=== PATIENT | male | born 1940 | race Caucasian/White ===

== ENCOUNTER 2019-01-04 17:05 | Inpatient (IN) | payer MEDICARE, BC ==
[2019-01-04] MEDS ORDERED: Ondansetron 4 MG/2 ML SDV IVPUSH ONE (17:32)
[2019-01-04] MEDS ORDERED: Sodium Chloride 0.9% 1,000 ML IV ONE (17:32)
--- NOTE | 2019-01-04 18:05 | CR ---
[id number] RAD/RAD Foot Right 3V Min EXAM: RAD Foot Right 3V Min CLINICAL DATA: POSSIBLE FOREIGN BODY COMPARISON: NO PREVIOUS SIMILAR EXAM IS AVAILABLE. FINDINGS: A metallic density projects against the distal tibia and fibula. This may be surgical. No fracture or dislocation is seen. There is no radiopaque foreign body in the soft tissues. There is no air in the soft tissues. There is no cortical thickening or periosteal reaction either. IMPRESSION: NO AIR IN SOFT TISSUES. NO OBVIOUS RADIOPAQUE FOREIGN BODY. NO PLAIN FILM EVIDENCE OF VASCULITIS. CONSIDER CAT SCAN IF NEEDED. Jon James MD 01/04/19 [id number] Thank you for allowing us to participate in the care of your patient.
--- NOTE | 2019-01-04 18:07 | EDM.PDOC ---
ED HPI GENERAL MEDICAL PROBLEM - General Chief Complaint: General Stated Complaint: NAUSEA, VOMITING, ? MED REACTION Time Seen by Provider: 01/04/19 18:01 Source of Information: Reports: Patient History Limitations: Reports: No Limitations - History of Present Illness INITIAL COMMENTS - FREE TEXT/NARRATIVE: Patient is a 78-year-old gentleman who presents to the emergency department this evening with a complaint of nausea, vomiting, and right foot pain. Patient states on December 25. He accidentally stepped on a toothpick. He was seen at the [facility] on December 27 and given prescription for doxycycline. Symptoms have progressively worsened. Patient states now he cannot put any weight on the right foot. Patient states that whenever he takes the doxycycline it causes nausea and vomiting. Therefore, has been taking it infrequently. Patient is also an insulin-dependent diabetic and infrequently checks glucose. Unsure if patient is compliant with medication. Patient denies chest pain, shortness of breath, fever, abdominal pain, calf pain, or headache. Onset: Gradual Onset Date: 12/25/18 Duration: Week(s): Location: Reports: Lower Extremity, Right Quality: Reports: Ache Severity: Mild Improves with: Reports: None Worsens with: Reports: Movement Context: Reports: Trauma Associated Symptoms: Reports: Nausea/Vomiting Treatments ROOF SHINGLER: Reports: Other (see below) (Doxycycline) Right Feet Pain Score (Numeric/FACES): 4 - Related Data Allergies Allergy/AdvReac Type Severity Reaction Status Date / Time No Known Drug Allergies Allergy Cannot Verified 01/04/19 17:24 Remember Home Meds: Home Meds Aspirin [Ecotrin] 325 mg PO DAILY 02/16/15 [History] Levothyroxine 75 mcg PO ACBREAKFAST 02/16/15 [History] Tamsulosin [Flomax] 0.4 mg PO DAILY 02/16/15 [History] atorvaSTATin [Lipitor] 40 mg PO BEDTIME 02/16/15 [History] Calcitriol [Rocaltrol] 0.25 mcg PO DAILY 06/20/16 [History] Acetaminophen 500 mg PO DAILY 02/08/17 [History] Insulin Glarg,Human.Rec.Analog [Lantus Solostar] 23 unit SUBCUT DAILY 02/08/17 [ History] Cholecalciferol (Vitamin D3) [Vitamin D3] 1,000 units PO DAILY 02/09/17 [History ] Doxycycline Hyclate 100 mg PO BID 01/04/19 [History] Lisinopril 2.5 mg PO DAILY 01/04/19 [History] amLODIPine Besylate [Amlodipine Besylate] 5 mg PO DAILY 01/04/19 [History] Past Medical History Cardiovascular History: Reports: High Cholesterol, Hypertension Genitourinary History: Reports: BPH, Other (See Below), Renal Disease, Urinary Incontinence Other Genitourinary History: CKD stage 4 Musculoskeletal History: Reports: Arthritis Endocrine/Metabolic History: Reports: Diabetes, Type II Social & Family History - Caffeine Use Caffeine Use: Reports: Coffee ED ROS GENERAL - Review of Systems Review Of Systems: ROS reveals no pertinent complaints other than HPI. Constitutional: Reports: Weakness HEENT: Reports: No Symptoms Respiratory: Reports: No Symptoms Cardiovascular: Reports: No Symptoms Endocrine: Reports: No Symptoms GI/Abdominal: Reports: No Symptoms : Reports: No Symptoms Musculoskeletal: Reports: Foot Pain (Right plantar surface) Skin: Reports: Erythema Neurological: Reports: No Symptoms Psychiatric: Reports: No Symptoms Hematologic/Lymphatic: Reports: No Symptoms Immunologic: Reports: No Symptoms ED EXAM, GENERAL - Physical Exam Exam: See Below Exam Limited By: No Limitations General Appearance: Alert, WD/WN, No Apparent Distress Throat/Mouth: Normal Inspection, Normal Oropharynx, No Airway Compromise Head: Atraumatic, Normocephalic Neck: Normal Inspection Respiratory/Chest: No Respiratory Distress, Lungs Clear, Normal Breath Sounds, No Accessory Muscle Use, Chest Non-Tender Cardiovascular: Normal Peripheral Pulses, Regular Rate, Rhythm, No Murmur GI/Abdominal: Normal Bowel Sounds, Soft, Non-Tender Back Exam: Normal Inspection. No: CVA Tenderness (L), CVA Tenderness (R) Extremities: No Pedal Edema, Redness (Right foot), Other (Extensive toenail growth). No: Normal Inspection Neurological: Alert, Oriented, Normal Cognition Psychiatric: Normal Affect, Normal Mood Skin Exam: Warm, Dry, Normal Color, No Rash, Erythema (Erythema of Right foot Plantar surface and distal dorsal aspect with no toe involvement) Lymphatic: No Adenopathy Course - Vital Signs Last Recorded V/S: Last Vital Signs Temp 98.6 F 01/04/19 17:20 Pulse 97 01/04/19 17:20 Resp 16 01/04/19 17:20 BP 86/61 L 01/04/19 17:20 Pulse Ox 95 03/08/19 17:20 - Orders/Labs/Meds Orders: Active Orders 24 hr Category Date Time Status Patient Status [ADT] Routine ADT 01/04/19 18:30 Ordered Oxygen Therapy [RC] PRN Care 01/04/19 18:30 Ordered Peripheral IV Care [RC] . DIRECTED Care 01/04/19 17:33 Active VTE/DVT Education [RC] PER UNIT ROUTINE Care 01/04/19 18:30 Ordered Vital Signs [RC] Q4H Care 01/04/19 18:30 Ordered CULTURE BLOOD [BC] Stat Lab 01/04/19 18:15 Ordered CULTURE BLOOD [BC] Stat Lab 01/04/19 18:15 Ordered CULTURE BLOOD [BC] Stat Lab 01/04/19 18:15 Ordered LACTIC ACID [CHEM] Stat Lab 01/04/19 18:10 Ordered Piperacillin/Tazobactam/Dext [Zosyn in Dextrose Iso- Med 01/04/19 18:15 Ordered Osmotic 3.375 GM] 3.375 gm Premix Bag 1 bag IV ONETIME Sodium Chloride 0.9% [Saline Flush] Med 01/04/19 17:32 Active 10 ml FLUSH Q8HR PRN Blood Culture x2 Reflex Set [OM.PC] Stat Oth 01/04/19 18:15 Ordered Peripheral IV Insertion Adult [OM.PC] Routine Oth 01/04/19 17:32 Ordered Resuscitation Status Routine Resus Stat 01/04/19 18:30 Ordered Medication Orders Piperacillin/Tazobactam/ (Dextrose 3.375 gm/ Premix) 50 mls @ 100 mls/hr IV ONETIME ONE Stop: 01/04/19 18:44 Sodium Chloride (Saline Flush) 10 ml FLUSH Q8HR PRN PRN Reason: keep vein open Labs: Laboratory Tests 01/04/19 01/04/19 Range/Units 17:40 17:40 WBC 18.38 H (5.00-10.00) 10^3/uL RBC 4.58 (4.50-6.00) 10^6/uL Hgb 13.4 (13.0-17.0) g/dL Hct 39.7 L (40.0-52.0) % MCV 86.7 (82.0-92.0) fL MCH 29.3 (27.0-31.0) pg MCHC 33.8 (32.0-36.0) g/dL RDW 12.7 (11.5-14.5) % Plt Count 416 H (150-400) 10^3/uL MPV 10.1 (7.4-10.4) fL Immature Gran % (Auto) 0.7 (0.0-5.0) % Neut % (Auto) 85.6 H (50.0-70.0) % Lymph % (Auto) 7.8 L (20.0-40.0) % Hendricks % (Auto) 5.6 (2.0-8.0) % Eos % (Auto) 0.2 L (1.0-3.0) % Baso % (Auto) 0.1 (0.0-1.0) % Immature Gran # (Auto) 0.12 (0.00-0.50) 10^3/uL Neut # (Auto) 15.76 H (2.50-7.00) 10^3/uL Lymph # (Auto) 1.43 (1.00-4.00) 10^3/uL Hendricks # (Auto) 1.03 H (0.10-0.80) 10^3/uL Eos # (Auto) 0.03 L (0.10-0.30) 10^3/uL Baso # (Auto) 0.01 (0.00-0.10) 10^3/uL Sodium 129 L D (136-145) mmol/L Potassium 4.9 (3.3-5.3) mmol/L Chloride 93 L D (98-115) mmol/L Carbon Dioxide 26.6 (21.0-32.0) mmol/L Anion Gap 14.3 (5-15) mmol/L BUN 64 H* (6-25) mg/dL Creatinine 2.34 H (0.51-1.17) mg/dL Est Cr Clr Drug Dosing 23.10 mL/min Estimated GFR (MDRD) 27 mL/min Glucose 496 H (75 - 99) mg/dL Calcium 10.8 H D (8.7-10.3) mg/dL Total Bilirubin 0.5 (0.2-1.0) mg/dL AST 10 L (15-37) U/L ALT 10 L (12-78) U/L Alkaline Phosphatase 85 (46-116) IU/L Total Protein 6.4 (6.4-8.2) g/dL Albumin 2.48 L (3.00-4.80) g/dL Meds: Medications Generic Name Dose Route Start Last Admin Trade Name Freq PRN Reason Stop Dose Admin Piperacillin/Tazobactam/ 50 mls @ 100 mls/hr 01/04/19 18:15 Dextrose 3.375 gm/ Premix IV 01/04/19 18:44 ONETIME ONE Sodium Chloride 10 ml 01/04/19 17:32 Saline Flush FLUSH Q8HR PRN keep vein open Discontinued Medications Generic Name Dose Route Start Last Admin Trade Name Freq PRN Reason Stop Dose Admin Sodium Chloride 1,000 mls @ 999 mls/hr 01/04/19 17:32 01/04/19 17:45 Normal Saline IV 01/04/19 18:32 999 mls/hr .BOLUS ONE Administration Ondansetron HCl 4 mg 01/04/19 17:32 01/04/19 18:00 Zofran IVPUSH 01/04/19 17:33 4 mg ONETIME ONE Administration - Radiology Interpretation Free Text/Narrative:: Right foot plain film shows no air, radiopaque foreign body, or bony involvement. - Re-Assessments/Exams Free Text/Narrative Re-Assessment/Exam: 01/04/19 18:25 Patient afebrile, appears nontoxic, vital signs stable. Patient started on Zosyn 3.375 IV. Discussed case with Mariela rosas from [facility]. Patient will be admitted and followed by her. Free Text/Narrative Re-Assessment/Exam: 01/04/19 18:33 Erythema border of right foot, both plantar and dorsal aspect marked with a black marker Departure - Departure Time of Disposition: 18:27 Disposition: Admitted As Inpatient 65 Condition: Fair Clinical Impression: Cellulitis Qualifiers: Site of cellulitis: extremity Site of cellulitis of extremity: lower extremity Laterality: right Qualified Code(s): L03.115 - Cellulitis of right lower limb Uncontrolled diabetes mellitus Qualifiers: Diabetes mellitus type: type 2 Glycemic state: with hyperglycemia Qualified Code(s): E11.65 - Type 2 diabetes mellitus with hyperglycemia Chronic renal failure Qualifiers: Chronic kidney disease stage: unspecified stage Qualified Code(s): N18.9 - Chronic kidney disease, unspecified Leukocytosis Qualifiers: Leukocytosis type: unspecified Qualified Code(s): D72.829 - Elevated white blood cell count, unspecified - Discharge Information Referrals: Julianna Ybarra PA-C [Primary Care Provider] - Forms: ED Department Discharge - My Orders Last 24 Hours: My Active Orders 01/04/19 17:32 Sodium Chloride 0.9% [Saline Flush] 10 ml FLUSH Q8HR PRN Peripheral IV Insertion Adult [OM.PC] Routine 01/04/19 17:33 Peripheral IV Care [RC] . DIRECTED 01/04/19 18:10 LACTIC ACID [CHEM] Stat 01/04/19 18:15 CULTURE BLOOD [BC] Stat CULTURE BLOOD [BC] Stat CULTURE BLOOD [BC] Stat Piperacillin/Tazobactam/Dext [Zosyn in Dextrose Iso-Osmotic 3.375 GM] 3.375 gm Premix Bag 1 bag IV ONETIME Blood Culture x2 Reflex Set [OM.PC] Stat 01/04/19 18:30 Patient Status [ADT] Routine Oxygen Therapy [RC] PRN VTE/DVT Education [RC] PER UNIT ROUTINE Vital Signs [RC] Q4H Resuscitation Status Routine - Assessment/Plan Last 24 Hours: My Active Orders 01/04/19 17:32 Sodium Chloride 0.9% [Saline Flush] 10 ml FLUSH Q8HR PRN Peripheral IV Insertion Adult [OM.PC] Routine 01/04/19 17:33 Peripheral IV Care [RC] . DIRECTED 01/04/19 18:10 LACTIC ACID [CHEM] Stat 01/04/19 18:15 CULTURE BLOOD [BC] Stat CULTURE BLOOD [BC] Stat CULTURE BLOOD [BC] Stat Piperacillin/Tazobactam/Dext [Zosyn in Dextrose Iso-Osmotic 3.375 GM] 3.375 gm Premix Bag 1 bag IV ONETIME Blood Culture x2 Reflex Set [OM.PC] Stat 01/04/19 18:30 Patient Status [ADT] Routine Oxygen Therapy [RC] PRN VTE/DVT Education [RC] PER UNIT ROUTINE Vital Signs [RC] Q4H Resuscitation Status Routine Assessment:: Right foot cellulitis, chronic renal failure Plan: Admit inpatient to [place]
[2019-01-04 18:09] LABS: ANION GAP 14.3 mmol/L (5-15)
[2019-01-04] MEDS ORDERED: Piperacillin/Tazobactam/Dext 3.375 GM in Premix Bag 1 BAG IV ONE (18:15)
[2019-01-04] MEDS ORDERED: Insulin Aspart 100 Units/ML 3 ML Pen SUBCUT ONE (20:20)
[2019-01-04] MEDS: Insulin Aspart 100 Units/ML 3 ML Pen SUBCUT SCH (21:07)
[2019-01-04] MEDS: Acetaminophen 500 MG Tab PO SCH (22:35)
[2019-01-05] MEDS: Levothyroxine 75 MCG Tab PO SCH (07:08)
[2019-01-05 07:52] LABS: ANION GAP 11.8 mmol/L (5-15)
[2019-01-05] MEDS: Insulin Detemir 100 Units/ML 3 ML Pen SUBCUT SCH (08:19)
[2019-01-05] MEDS: Aspirin 325 MG Tab.EC PO SCH (08:20)
[2019-01-05] MEDS: Insulin Aspart 100 Units/ML 3 ML Pen SUBCUT SCH ×4 (08:20→21:53)
[2019-01-05] MEDS: Lisinopril 5 MG Tab PO SCH (08:20)
[2019-01-05] MEDS: Cholecalciferol (Vitamin D3) 1,000 Unit Tab PO SCH (08:21)
[2019-01-05] MEDS: Acetaminophen 500 MG Tab PO SCH (08:21)
[2019-01-05] MEDS: Tamsulosin 0.4 MG Cap.ER PO SCH (08:21)
[2019-01-05] MEDS: Calcitriol 0.25 MCG Cap PO SCH (08:21)
[2019-01-05] MEDS: amLODIPine 5 MG Tab PO SCH (08:21)
[2019-01-05] MEDS: Piperacillin/Tazobactam/Dext 2.25 GM in Premix Bag 1 BAG IV SCH ×3 (09:59→20:35)
[2019-01-05] MEDS: Sodium Chloride 0.9% 250 ML IV SCH (10:00)
--- NOTE | 2019-01-05 14:24 | PN ---
01/05/2019 PATIENT NAME: THOMAS HADLEY V This is a 78-year-old elderly male who was admitted to the hospital last evening due to cellulitis of the right foot after obtaining a puncture wound from a toothpick on 12/25/2018. He was unable to tolerate doxycycline orally and stopped the medications. Due to cellulitis with an elevated WBC of 18,000, and IDDM, the patient was admitted to the hospital. He is afebrile, but was not eating and drinking due to the inability to get up for food and liquids for himself. The patient states that he is feeling much better today. He has had two doses of Zosyn and one dose of vancomycin and these have been titrated due to CKD by pharmacy. The patient remains afebrile. On examination of the right foot, the area of erythema as marked by the ER provider, has lessened. The patient continues to have pain. On examination today, the right foot as stated above and also has a linear 1 cm x 5 cm blister without fluid. Puncture wound is notable. No drainage. IMPRESSION: 1. Cellulitis, right foot, slight improvement. 2. Diabetes mellitus, insulin control. Sliding scale has been continued due to elevated blood sugars. 3. 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 4. Hypotension also improving. PLAN: Continue on the same medications as previously ordered. We will follow up as needed. We will reassess for the need of CT if no improvement. /[id number]/MODL
[2019-01-05] MEDS: Acetaminophen 325 MG Tab PO PRN (17:57)
--- NOTE | 2019-01-05 19:38 | HP ---
REASON FOR ADMISSION: This is a 78-year-old male who was seen in the emergency room and admitted to the hospital due to cellulitis of the right foot. HISTORY OF PRESENT ILLNESS: This elderly 78-year-old male apparently stepped on a toothpick on 12/25/2018, and was able to remove it, and on 12/27, was seen apparently in the clinic and started on doxycycline 100 mg b.i.d. Due to nausea and stomach upset, he did not continue on the doxycycline. Due to the worsening of the weather and also it had been noted by his nephew that when he checked on him in the morning and in the evening, he had not moved out of his chair. He was not eating and drinking well due to the pain and discomfort in the right foot. He presented to the emergency room and was found to have cellulitis of the right foot. X-ray was obtained and no air in soft tissues, no signs of vasculitis, and no foreign body was noted. Consider CT if needed. His blood pressure was low at 86/61. He was afebrile at 98.6. His white count was elevated to 18.3 and lactic acid was at 2.0 which is the top of normal. In the ER, he did have blood cultures, noted that his creatinine is elevated at 2.34 but has a history of CKD, stage 3. He also has a history of diabetes mellitus, on insulin, fair control. The patient was admitted to the hospital through the emergency room. PAST MEDICAL HISTORY: IDDM, fair control; CKD, stage 3 to 4; BPH; hypothyroidism; hyperlipidemia; hypertension. PAST SURGICAL HISTORY: Discussed with the patient and does not remember ever having any type of surgery. REVIEW OF SYSTEMS: HEENT: Denies any nasal congestion, sore throat, or headache. SKIN: Redness, pain, open puncture wound of the right foot, and pain on ambulation. CARDIAC: Denies any chest pain, palpitations. LUNGS: Denies any shortness of breath or cough. Denies any chest discomfort on inspiration. ABDOMEN: Denies any nausea, vomiting, diarrhea, or constipation. States that when he took the doxycycline, he became very nauseated and has not had an appetite, but has no longer continued with the doxycycline. Bowels are regular. EXTREMITIES: History of arthritis. Right foot pain with redness and swelling. NEUROLOGIC: The patient has had problems with possible learning disability, but has been alert and responds very well living alone. SOCIAL HISTORY: The patient lives alone. Nonsmoker. No alcohol intake. Retired [employer]. Family members, brothers or nephews and nieces have checked on him frequently. PHYSICAL EXAMINATION: GENERAL: Pleasant elderly male, in no acute distress. He is afebrile. VITAL SIGNS: Temperature 98.6, pulse 72, respirations 18, blood pressure is low at 86/61. HEENT: Head: Normocephalic. NECK: Range of motion was supple. No cervical lymphadenopathy. CARDIAC: Heart tones are regular without murmur or extra heart sounds. LUNGS: Clear. There are no rales, rhonchi, or wheezes. ABDOMEN: Soft. No abdominal tenderness or organomegaly. EXTREMITIES: Noted arthritic changes. Good range of motion of both upper and lower extremities. Right foot, at the great toe, across the distal metatarsals, there is erythema present, and on the bottom, there is an elongated blister approximately 4 to 5 cm in length without fluid. Markings from ER are evaluated and the erythema is left than marked. NEUROLOGIC: The patient is alert and well orientated x3. IMPRESSION: 1. Cellulitis, right foot, due to puncture wound. 2. Chronic kidney disease, stage 3 to 4. 3. Diabetes mellitus type 2, on insulin, control fair. 4. Hypertension, now hypotensive, probably due to dehydration. 5. Hypothyroidism. 6. Hypertension. 7. Doxycycline, unable to tolerate due to gastric side affects. PLAN: The patient is admitted to the hospital. He received Zosyn 1 dose in the ER and is now on the Zosyn as ordered by Pharmacy due to kidney disease. Also, he was started on vancomycin via Pharmacy due to CKD. He is on IV fluids, q.i.d. Accu-Cheks are obtained. He is on glargine and its 23 units and also was placed on a sliding scale. /[id number]/MODL
[2019-01-05] MEDS: atorvaSTATin 40 MG Tab PO SCH (20:36)
[2019-01-05] MEDS: Sodium Chloride 0.9% 10 ML SDV IV SCH (21:30)
[2019-01-06] MEDS: Piperacillin/Tazobactam/Dext 2.25 GM in Premix Bag 1 BAG IV SCH ×4 (01:25→20:50)
[2019-01-06] MEDS: Levothyroxine 75 MCG Tab PO SCH (06:35)
[2019-01-06] MEDS: Sodium Chloride 0.9% 250 ML IV SCH (07:54)
[2019-01-06] MEDS: Insulin Aspart 100 Units/ML 3 ML Pen SUBCUT SCH ×4 (07:54→21:45)
[2019-01-06] MEDS: Sodium Chloride 0.9% 10 ML Syringe FLUSH PRN (08:00)
[2019-01-06] MEDS: Cholecalciferol (Vitamin D3) 1,000 Unit Tab PO SCH (08:01)
[2019-01-06] MEDS: Acetaminophen 500 MG Tab PO SCH (08:02)
[2019-01-06] MEDS: Lisinopril 5 MG Tab PO SCH (08:02)
[2019-01-06 08:03] LABS: ANION GAP 16.2 mmol/L (5-15)
[2019-01-06] MEDS: Insulin Detemir 100 Units/ML 3 ML Pen SUBCUT SCH (08:03)
[2019-01-06] MEDS: Aspirin 325 MG Tab.EC PO SCH (08:03)
[2019-01-06] MEDS: amLODIPine 5 MG Tab PO SCH (08:03)
[2019-01-06] MEDS: Calcitriol 0.25 MCG Cap PO SCH (08:03)
[2019-01-06] MEDS: Tamsulosin 0.4 MG Cap.ER PO SCH (08:03)
[2019-01-06] MEDS: Sodium Chloride 0.9% 10 ML SDV IV SCH (10:48)
[2019-01-06] MEDS: atorvaSTATin 40 MG Tab PO SCH (20:51)
[2019-01-07] MEDS: Piperacillin/Tazobactam/Dext 2.25 GM in Premix Bag 1 BAG IV SCH ×2 (01:32→08:29)
[2019-01-07] MEDS: Levothyroxine 75 MCG Tab PO SCH (06:35)
[2019-01-07] MEDS: Insulin Aspart 100 Units/ML 3 ML Pen SUBCUT SCH ×5 (08:01→21:49)
[2019-01-07 08:18] LABS: ANION GAP 14.2 mmol/L (5-15)
[2019-01-07] MEDS: Calcitriol 0.25 MCG Cap PO SCH (08:31)
[2019-01-07] MEDS: amLODIPine 5 MG Tab PO SCH (08:31)
[2019-01-07] MEDS: Lisinopril 5 MG Tab PO SCH (08:31)
[2019-01-07] MEDS: Aspirin 325 MG Tab.EC PO SCH (08:32)
[2019-01-07] MEDS: Acetaminophen 500 MG Tab PO SCH (08:32)
[2019-01-07] MEDS: Cholecalciferol (Vitamin D3) 1,000 Unit Tab PO SCH (08:32)
[2019-01-07] MEDS: Tamsulosin 0.4 MG Cap.ER PO SCH (08:32)
[2019-01-07] MEDS: Insulin Detemir 100 Units/ML 3 ML Pen SUBCUT SCH (08:36)
--- NOTE | 2019-01-07 10:11 | PCM.PN ---
- General Info Date of Service: 01/07/19 Functional Status: Reports: Pain Controlled, Tolerating Diet, Urinating, New Symptoms (diarrhea). Denies: Ambulating - Review of Systems General: Reports: Weakness, Malaise. Denies: Fever, Night Sweats HEENT: Reports: No Symptoms Pulmonary: Reports: No Symptoms Cardiovascular: Reports: No Symptoms Gastrointestinal: Reports: Diarrhea Genitourinary: Reports: No Symptoms Musculoskeletal: Reports: Foot Pain Skin: Reports: Other (Slightly less redness top of right foot and bottom) Neurological: Reports: Difficulty Walking, Weakness. Denies: Confusion, Dizziness Psychiatric: Reports: No Symptoms - Patient Data Vitals - Most Recent: Last Vital Signs Temp 98.9 F 01/07/19 07:00 Pulse 86 01/07/19 07:00 Resp 20 01/07/19 07:00 BP 119/73 01/07/19 08:31 Pulse Ox 95 01/07/19 07:10 Weight - Most Recent: 132 lb 4.8 oz I&O - Last 24 Hours: Intake & Output 01/06/19 01/07/19 01/07/19 22:59 06:59 14:59 Intake Total 478 371 Balance 478 371 Lab Results Last 24 Hours: Laboratory Results - last 24 hr 01/06/19 01/06/19 01/06/19 Range/Units 11:52 17:42 20:30 WBC (5.00-10.00) 10^3/uL RBC (4.50-6.00) 10^6/uL Hgb (13.0-17.0) g/dL Hct (40.0-52.0) % MCV (82.0-92.0) fL MCH (27.0-31.0) pg MCHC (32.0-36.0) g/dL RDW (11.5-14.5) % Plt Count (150-400) 10^3/uL MPV (7.4-10.4) fL Immature Gran % (Auto) (0.0-5.0) % Neut % (Auto) (50.0-70.0) % Lymph % (Auto) (20.0-40.0) % [place] % (Auto) (2.0-8.0) % Eos % (Auto) (1.0-3.0) % Baso % (Auto) (0.0-1.0) % Immature Gran # (Auto) (0.00-0.50) 10^3/uL Neut # (Auto) (2.50-7.00) 10^3/uL Lymph # (Auto) (1.00-4.00) 10^3/uL [place] # (Auto) (0.10-0.80) 10^3/uL Eos # (Auto) (0.10-0.30) 10^3/uL Baso # (Auto) (0.00-0.10) 10^3/uL Sodium (136-145) mmol/L Potassium (3.3-5.3) mmol/L Chloride (98-115) mmol/L Carbon Dioxide (21.0-32.0) mmol/L Anion Gap (5-15) mmol/L BUN (6-25) mg/dL Creatinine (0.51-1.17) mg/dL Est Cr Clr Drug Dosing mL/min Estimated GFR (MDRD) mL/min Glucose (75 - 99) mg/dL POC Glucose 309 H 73 L (74-106) mg/dl Calcium (8.7-10.3) mg/dL Total Bilirubin (0.2-1.0) mg/dL AST (15-37) U/L ALT (12-78) U/L Alkaline Phosphatase (46-116) IU/L C-Reactive Protein (0.0-0.9) mg/dL Total Protein (6.4-8.2) g/dL Albumin (3.00-4.80) g/dL Vancomycin Trough 15.5 (10-20) ug/mL 01/06/19 01/07/19 01/07/19 Range/Units 21:43 07:25 07:25 WBC 17.22 H (5.00-10.00) 10^3/uL RBC 3.92 L (4.50-6.00) 10^6/uL Hgb 11.6 L (13.0-17.0) g/dL Hct 34.8 L (40.0-52.0) % MCV 88.8 (82.0-92.0) fL MCH 29.6 (27.0-31.0) pg MCHC 33.3 (32.0-36.0) g/dL RDW 12.9 (11.5-14.5) % Plt Count 351 (150-400) 10^3/uL MPV 9.9 (7.4-10.4) fL Immature Gran % (Auto) 1.8 (0.0-5.0) % Neut % (Auto) 75.6 H (50.0-70.0) % Lymph % (Auto) 14.5 L (20.0-40.0) % [place] % (Auto) 6.2 (2.0-8.0) % Eos % (Auto) 1.7 (1.0-3.0) % Baso % (Auto) 0.2 (0.0-1.0) % Immature Gran # (Auto) 0.31 (0.00-0.50) 10^3/uL Neut # (Auto) 13.03 H (2.50-7.00) 10^3/uL Lymph # (Auto) 2.49 (1.00-4.00) 10^3/uL [place] # (Auto) 1.07 H (0.10-0.80) 10^3/uL Eos # (Auto) 0.29 (0.10-0.30) 10^3/uL Baso # (Auto) 0.03 (0.00-0.10) 10^3/uL Sodium 139 (136-145) mmol/L Potassium 4.1 (3.3-5.3) mmol/L Chloride 101 (98-115) mmol/L Carbon Dioxide 27.9 (21.0-32.0) mmol/L Anion Gap 14.2 (5-15) mmol/L BUN 48 H (6-25) mg/dL Creatinine 2.41 H (0.51-1.17) mg/dL Est Cr Clr Drug Dosing 20.00 mL/min Estimated GFR (MDRD) 26 mL/min Glucose 106 H (75 - 99) mg/dL POC Glucose 269 H (74-106) mg/dl Calcium 9.3 (8.7-10.3) mg/dL Total Bilirubin 0.4 (0.2-1.0) mg/dL AST 18 (15-37) U/L ALT 14 (12-78) U/L Alkaline Phosphatase 69 (46-116) IU/L C-Reactive Protein 4.7 H (0.0-0.9) mg/dL Total Protein 5.3 L (6.4-8.2) g/dL Albumin 1.81 L (3.00-4.80) g/dL Vancomycin Trough (10-20) ug/mL 01/07/19 Range/Units 07:40 WBC (5.00-10.00) 10^3/uL RBC (4.50-6.00) 10^6/uL Hgb (13.0-17.0) g/dL Hct (40.0-52.0) % MCV (82.0-92.0) fL MCH (27.0-31.0) pg MCHC (32.0-36.0) g/dL RDW (11.5-14.5) % Plt Count (150-400) 10^3/uL MPV (7.4-10.4) fL Immature Gran % (Auto) (0.0-5.0) % Neut % (Auto) (50.0-70.0) % Lymph % (Auto) (20.0-40.0) % [place] % (Auto) (2.0-8.0) % Eos % (Auto) (1.0-3.0) % Baso % (Auto) (0.0-1.0) % Immature Gran # (Auto) (0.00-0.50) 10^3/uL Neut # (Auto) (2.50-7.00) 10^3/uL Lymph # (Auto) (1.00-4.00) 10^3/uL [place] # (Auto) (0.10-0.80) 10^3/uL Eos # (Auto) (0.10-0.30) 10^3/uL Baso # (Auto) (0.00-0.10) 10^3/uL Sodium (136-145) mmol/L Potassium (3.3-5.3) mmol/L Chloride (98-115) mmol/L Carbon Dioxide (21.0-32.0) mmol/L Anion Gap (5-15) mmol/L BUN (6-25) mg/dL Creatinine (0.51-1.17) mg/dL Est Cr Clr Drug Dosing mL/min Estimated GFR (MDRD) mL/min Glucose (75 - 99) mg/dL POC Glucose 118 H (74-106) mg/dl Calcium (8.7-10.3) mg/dL Total Bilirubin (0.2-1.0) mg/dL AST (15-37) U/L ALT (12-78) U/L Alkaline Phosphatase (46-116) IU/L C-Reactive Protein (0.0-0.9) mg/dL Total Protein (6.4-8.2) g/dL Albumin (3.00-4.80) g/dL Vancomycin Trough (10-20) ug/mL Jerardo Results Last 24 Hours: Microbiology 01/04/19 19:15 Aerobic Blood Culture - Preliminary Blood - Venous NO GROWTH AFTER 2 DAYS Anaerobic Blood Culture - Preliminary NO GROWTH AFTER 2 DAYS 01/04/19 18:28 Aerobic Blood Culture - Preliminary Blood NO GROWTH AFTER 2 DAYS Anaerobic Blood Culture - Preliminary NO GROWTH AFTER 2 DAYS Med Orders - Current: Current Medications Acetaminophen (Tylenol Extra Strength) 500 mg PO DAILY [facility] Last Admin: 01/07/19 08:32 Dose: 500 mg Acetaminophen (Tylenol) 650 mg PO Q6H PRN PRN Reason: Pain Last Admin: 01/05/19 17:57 Dose: 650 mg Amlodipine Besylate (Norvasc) 5 mg PO DAILY [facility] Last Admin: 01/07/19 08:31 Dose: 5 mg Aspirin (Ecotrin) 325 mg PO DAILY [facility] Last Admin: 01/07/19 08:32 Dose: 325 mg Atorvastatin Calcium (Lipitor) 40 mg PO BEDTIME [facility] Last Admin: 01/06/19 20:51 Dose: 40 mg Calcitriol (Rocaltrol) 0.25 mcg PO DAILY [facility] Last Admin: 01/07/19 08:31 Dose: 0.25 mcg Cholecalciferol (Vitamin D3) 1,000 units PO DAILY [facility] Last Admin: 01/07/19 08:32 Dose: 1,000 units Vancomycin HCl 1 gm/ Sodium (Chloride) 250 mls @ 166.667 mls/hr IV Q24H [facility] Last Admin: 01/06/19 21:40 Dose: 166.667 mls/hr Piperacillin/Tazobactam/ (Dextrose 2.25 gm/ Premix) 33.333 mls @ 66.666 mls/hr IV Q6H [facility] Last Admin: 01/07/19 08:29 Dose: 66.6 mls/hr Sodium Chloride (Normal Saline) 250 mls @ 100 mls/hr IV ASDIRECTED [facility] Last Admin: 01/06/19 07:54 Dose: 100 mls/hr Insulin Aspart (Novolog) 0 unit SUBCUT WITHMEALSANDBED [facility]; Protocol Last Admin: 01/07/19 08:01 Dose: Not Given Insulin Detemir (Levemir) 23 unit SUBCUT DAILY [facility] Last Admin: 01/07/19 08:36 Dose: 23 units Lactobacillus Acidophilus/Rhamnosus (Multi-Letty Plus) 1 cap PO DAILY@1200 KAELYN Levothyroxine Sodium (Levothyroxine) 75 mcg PO ACBREAKFAST [facility] Last Admin: 01/07/19 06:35 Dose: 75 mcg Lisinopril (Prinivil) 2.5 mg PO DAILY [facility] Last Admin: 01/07/19 08:31 Dose: 2.5 mg Sodium Chloride (Saline Flush) 10 ml FLUSH Q8HR PRN PRN Reason: keep vein open Last Admin: 01/06/19 08:00 Dose: 10 ml Tamsulosin HCl (Flomax) 0.4 mg PO DAILY [facility] Last Admin: 01/07/19 08:32 Dose: 0.4 mg Vancomycin HCl (Pharmacy To Dose - Vancomycin) 1 dose .XX ASDIRECTED [facility] Discontinued Medications Sodium Chloride (Normal Saline) 1,000 mls @ 999 mls/hr IV .BOLUS ONE Stop: 01/04/19 18:32 Last Admin: 01/04/19 17:45 Dose: 999 mls/hr Piperacillin/Tazobactam/ (Dextrose 3.375 gm/ Premix) 50 mls @ 100 mls/hr IV ONETIME ONE Stop: 01/04/19 18:44 Last Admin: 01/04/19 18:42 Dose: 100 mls/hr Insulin Aspart (Novolog) 10 unit SUBCUT ONETIME ONE Stop: 01/04/19 20:21 Last Admin: 01/04/19 20:43 Dose: 10 units Ondansetron HCl (Zofran) 4 mg IVPUSH ONETIME ONE Stop: 01/04/19 17:33 Last Admin: 01/04/19 18:00 Dose: 4 mg Sodium Chloride (Normal Saline) 100 ml IV DAILY [facility] Last Admin: 01/06/19 10:48 Dose: Not Given - Exam Quality Assessment: No: Supplemental Oxygen General: Alert, Oriented Neck: Supple Lungs: Clear to Auscultation, Normal Respiratory Effort Cardiovascular: Regular Rate, Regular Rhythm GI/Abdominal Exam: Soft. No: Distended (Male) Exam: Deferred Back Exam: No: CVA Tenderness (L), CVA Tenderness (R) Extremities: Increased Warmth (Right foot dorsal aspect erythematous, slightly receding, bottom right foot, edematous, pustulated pocket however overall erythremia receding from previous demarcated border ). No: Pedal Edema Skin: Other (Right foot dorsal aspect erythematous, slightly receding, bottom right foot, edematous, pustulated pocket however overall erythremia receding from previous demarcated border ) Psy/Mental Status: Alert, Normal Affect, Normal Mood - Problem List Review Problem List Initiated/Reviewed/Updated: Yes - My Orders Last 24 Hours: My Active Orders 01/07/19 09:30 Consult to Physical Therapy [PT Evaluation and Treatment] [CONS] Routine CDIFF TOX A+B [OP] Routine Isolation [COMM] Routine 01/07/19 12:00 B.Bif/B.Long/L.Acidoph/L.Rhamn [Multi-Letty Plus] 1 cap PO DAILY@1200 - Plan Plan:: History summary Mr Barriga is a 78-year-old gentleman who was admitted due to foot infection/ cellulitis right foot status post puncture wound from a toothpick he sustained on October 24. He was initially placed on doxycycline however he discontinued this medication as he was not able tolerated. Patient has uncontrolled Type 2 and September 2018 his home monotherapy Tresiba was increased due to a rising hemoglobin A1c of 9.7%. Patient lives alone and does not do very well with dietary and medication regimen. In follow closely by nephrology New symptoms today, diarrhea. Right foot dorsal aspect erythematous, slightly receding, bottom right foot, edematous, pustulated pocket however overall erythremia receding from previous demarcated border Primary hospital concerns Right foot infection/cellulitis Neutrophilia, slightly improving T2DM, Diarrhea, CKD Stage IV/Proteinuria Diabetic nephropathy Secondary problems HLD, ASCVD 45%, mod dose statin however patient >75 y/o HTN, CCB, stable, minimal dosing MAYANK inhibitor Hypothyroidism, thyroid replacement therapy, Secondary hyperparathyroidism, Calcitriol BPH, Tamsulosin Disposition/Plan; continue with current renal dosing ABX, elevate right foot, Surgical C/S; assess for C. difficile, add probiotic, decrease sliding scale to low-dose, consider renal friendly GLP-1a if affordable for patient. Reduce ASA. Social service and PT consultation.
--- NOTE | 2019-01-07 10:18 | PN ---
01/06/2019 PATIENT NAME: THOMAS HADLEY V HISTORY OF PRESENT ILLNESS: This is a 78-year-old male patient who was admitted from the [facility] Emergency Room due to a cellulitis of his right foot. He apparently stepped on a toothpick at his home on 12/25/2018. He is unsure if the entire toothpick had been removed from the volar surface of the foot. He states that it is very tender and reddened. He was placed on outpatient doxycycline 100 mg b.i.d. He was unable to tolerate the medication due to nausea and vomiting. As of Monday, he did present to the emergency room as his status was worsening. He has not been eating or drinking well prior to his hospitalization. He is unsure if he took his medications compliantly prior to coming to the emergency room. This morning, he states that the foot remains quite tender. The redness is improving and he feels that it is not as warm to touch as it had been in the past. REVIEW OF SYSTEMS: HEENT: He denies any headache, earache, nasal congestion, or sore throat. RESPIRATORY: He has no cough or congestion. He denies any shortness of breath. CARDIOVASCULAR: He has had no complaints of chest pain or palpitations. GI: He has no complaints of nausea or vomiting at present. He feels that his appetite is improving and he is taking his fluids well. SKIN: He does have the right foot cellulitis. He notes that there is less discomfort on the base, but it still remains quite tender. He is unable to ambulate without pain or discomfort. EXTREMITIES: He denies any specific muscle or joint pain, but does state he has a history of arthritis. PHYSICAL EXAMINATION: VITAL SIGNS: This morning are 114/61, 98, 73, and 16. His O2 saturation is 97%. HEENT: His head is normocephalic without sinus tenderness. Conjunctiva is clear. No nasal drainage. RESPIRATORY: Lung sounds are clear to auscultation without wheezing, rhonchi, or rales. CARDIOVASCULAR: Heart rate and rhythm is regular. S1, S2 without murmur. ABDOMEN: Soft, nontender. Bowel sounds are present. EXTREMITIES: Right foot cellulitis is present. There is a redness which is deep in coloration on the volar surface of the foot and extends across to the distal metatarsals. There is an elongated blister type area approximately 4-5 cm in length. No fluid is noted presently. The insertion site of the toothpick is at the base of the 2nd toe extending near the great toe. There is extreme tenderness at the site of the injury. There is no drainage presently. The erythema and blister area were remarked with a pen today. NEUROLOGIC: He is alert and he is oriented. IMPRESSION AND PLAN: Cellulitis of the right foot due to a puncture wound with possible foreign body remaining. He currently is receiving vancomycin and Zosyn as dosed per pharmacy due to his chronic history of kidney disease. His white count remains elevated at 18.22. We will repeat CBC, CMP, and CRP tomorrow. We will also obtain a CT of the right foot to assess for any foreign body that remains. His chronic history includes chronic kidney disease stage 3 to 4, his BUN is 53 with a creatinine of 2.38; diabetes type 2, which he receives insulin on a daily basis. His blood sugar today was 136 mg%. Hypertension, hypothyroidism. We will proceed with the antibiotics as directed, obtain the CT and manage him with his chronic routine medications. Also, it is to be noted that his blood cultures were obtained and there is no growth noted as of one day. Back up physician was notified and his case was discussed. /[id number]/MODL MTDD
[2019-01-07] MEDS ORDERED: Piperacillin/Tazobactam 2.25 GM in Sodium Chloride 0.9% 50 ML IV SCH (10:30)
[2019-01-07] MEDS: B.Bifidum/B.Longum/L.Acidophilus/L.Rhamnosus (Probiotic) Cap PO SCH (12:07)
[2019-01-07] MEDS: Piperacillin/Tazobactam 2.25 GM in Sodium Chloride 0.9% 50 ML IV SCH ×2 (13:57→19:51)
--- NOTE | 2019-01-07 17:20 | CT ---
[id number] CT/CT Foot Right WO IV EXAM: CT Foot Right WO IV CLINICAL DATA: POSSIBLE FOREIGN BODY RIGHT FOOT, QUESTION TOOTHPICK. COMPARISON STUDY: Foot radiograph January 04, 2019. FINDINGS: There is no definite radiodense foreign body identified within the foot. There is a small ossicle adjacent to the 2nd metatarsal. No acute fracture or dislocation. Postsurgical changes following internal fixation of the distal leg. No evidence of hardware failure or loosening. There is extensive soft tissue edema and phlegmonous change. Within the superficial soft tissues adjacent to the 1st metatarsal there is extensive phlegmonous change with associated gas. Additionally there appears to be a developing fluid collection within the plantar aspect of the foot. No drainable fluid collection at this time. No CT evidence of acute osteomyelitis. Moderate degenerative changes seen throughout the right foot. Vascular calcifications. IMPRESSION: 1. No definite radiodense foreign body identified. 2. Extensive phlegmonous change with multiple foci of gas within the superficial soft tissues in the region of the 1st metatarsal. Additionally there is phlegmonous change extends into the plantar aspect of the foot where there appears to be a developing abscess. No drainable fluid collection at this point. Allan Portillo DO 01/07/19 1719 Thank you for allowing us to participate in the care of your patient.
[2019-01-07] MEDS: Sodium Chloride 0.9% 10 ML Syringe FLUSH PRN (19:51)
[2019-01-07] MEDS: atorvaSTATin 40 MG Tab PO SCH (20:40)
[2019-01-07] MEDS: Sodium Chloride 0.9% 250 ML IV SCH (20:41)
[2019-01-08] MEDS: Piperacillin/Tazobactam 2.25 GM in Sodium Chloride 0.9% 50 ML IV SCH ×2 (02:15→09:02)
[2019-01-08] MEDS: Insulin Aspart 100 Units/ML 3 ML Pen SUBCUT SCH ×4 (07:56→21:14)
[2019-01-08] MEDS: Levothyroxine 75 MCG Tab PO SCH (07:56)
[2019-01-08] MEDS: Insulin Detemir 100 Units/ML 3 ML Pen SUBCUT SCH ×2 (08:41→12:20)
[2019-01-08] MEDS: Lisinopril 5 MG Tab PO SCH (08:49)
[2019-01-08] MEDS: Aspirin 81 MG Tab.EC PO SCH (08:50)
[2019-01-08] MEDS: Calcitriol 0.25 MCG Cap PO SCH (08:50)
[2019-01-08] MEDS: Tamsulosin 0.4 MG Cap.ER PO SCH (08:50)
[2019-01-08] MEDS: Acetaminophen 500 MG Tab PO SCH (08:51)
[2019-01-08] MEDS: Cholecalciferol (Vitamin D3) 1,000 Unit Tab PO SCH (08:51)
[2019-01-08] MEDS: amLODIPine 5 MG Tab PO SCH (08:51)
[2019-01-08] MEDS: Sodium Chloride 0.9% 10 ML Syringe FLUSH PRN ×3 (09:04→23:18)
--- NOTE | 2019-01-08 11:12 | PCM.PN ---
- General Info Date of Service: 01/08/19 Functional Status: Reports: Tolerating Diet. Denies: Ambulating, Urinating, New Symptoms - Review of Systems General: Reports: No Symptoms HEENT: Reports: No Symptoms Pulmonary: Reports: No Symptoms Cardiovascular: Reports: No Symptoms Gastrointestinal: Reports: Diarrhea (Negative C. difficile diarrhea improving) Genitourinary: Reports: No Symptoms Musculoskeletal: Reports: Foot Pain Skin: Reports: Other (Redness right foot slightly improving) Neurological: Reports: Difficulty Walking Psychiatric: Reports: No Symptoms - Patient Data Vitals - Most Recent: Last Vital Signs Temp 99 F 01/08/19 06:51 Pulse 81 01/08/19 06:51 Resp 20 01/08/19 06:51 BP 118/72 01/08/19 08:51 Pulse Ox 93 L 01/08/19 06:51 Weight - Most Recent: 132 lb 4.8 oz I&O - Last 24 Hours: Intake & Output 01/07/19 01/08/19 01/08/19 22:59 06:59 14:59 Intake Total 624 115 Balance 624 115 Lab Results Last 24 Hours: Laboratory Results - last 24 hr 01/07/19 01/07/19 01/07/19 Range/Units 11:10 17:27 20:39 WBC (5.00-10.00) 10^3/uL RBC (4.50-6.00) 10^6/uL Hgb (13.0-17.0) g/dL Hct (40.0-52.0) % MCV (82.0-92.0) fL MCH (27.0-31.0) pg MCHC (32.0-36.0) g/dL RDW (11.5-14.5) % Plt Count (150-400) 10^3/uL MPV (7.4-10.4) fL Immature Gran % (Auto) (0.0-5.0) % Neut % (Auto) (50.0-70.0) % Lymph % (Auto) (20.0-40.0) % [place] % (Auto) (2.0-8.0) % Eos % (Auto) (1.0-3.0) % Baso % (Auto) (0.0-1.0) % Immature Gran # (Auto) (0.00-0.50) 10^3/uL Neut # (Auto) (2.50-7.00) 10^3/uL Lymph # (Auto) (1.00-4.00) 10^3/uL Jasper # (Auto) (0.10-0.80) 10^3/uL Eos # (Auto) (0.10-0.30) 10^3/uL Baso # (Auto) (0.00-0.10) 10^3/uL POC Glucose 344 H 180 H 241 H (74-106) mg/dl 01/08/19 01/08/19 Range/Units 06:27 07:20 WBC 16.89 H (5.00-10.00) 10^3/uL RBC 3.88 L (4.50-6.00) 10^6/uL Hgb 11.4 L (13.0-17.0) g/dL Hct 34.5 L (40.0-52.0) % MCV 88.9 (82.0-92.0) fL MCH 29.4 (27.0-31.0) pg MCHC 33.0 (32.0-36.0) g/dL RDW 13.0 (11.5-14.5) % Plt Count 363 (150-400) 10^3/uL MPV 9.7 (7.4-10.4) fL Immature Gran % (Auto) 1.3 (0.0-5.0) % Neut % (Auto) 76.8 H (50.0-70.0) % Lymph % (Auto) 13.1 L (20.0-40.0) % Jasper % (Auto) 6.8 (2.0-8.0) % Eos % (Auto) 1.6 (1.0-3.0) % Baso % (Auto) 0.4 (0.0-1.0) % Immature Gran # (Auto) 0.22 (0.00-0.50) 10^3/uL Neut # (Auto) 12.97 H (2.50-7.00) 10^3/uL Lymph # (Auto) 2.22 (1.00-4.00) 10^3/uL Jasper # (Auto) 1.15 H (0.10-0.80) 10^3/uL Eos # (Auto) 0.27 (0.10-0.30) 10^3/uL Baso # (Auto) 0.06 (0.00-0.10) 10^3/uL POC Glucose 167 H (74-106) mg/dl Jerardo Results Last 24 Hours: Microbiology 01/04/19 19:15 Aerobic Blood Culture - Preliminary Blood - Venous NO GROWTH AFTER 3 DAYS Anaerobic Blood Culture - Preliminary NO GROWTH AFTER 3 DAYS 01/07/19 17:30 Clostridium difficile Toxin A & B - Final Stool / Feces NEGATIVE CDIFF TOXIN 01/04/19 18:28 Aerobic Blood Culture - Preliminary Blood NO GROWTH AFTER 3 DAYS Anaerobic Blood Culture - Preliminary NO GROWTH AFTER 3 DAYS Med Orders - Current: Current Medications Acetaminophen (Tylenol Extra Strength) 500 mg PO DAILY [facility] Last Admin: 01/08/19 08:51 Dose: 500 mg Acetaminophen (Tylenol) 650 mg PO Q6H PRN PRN Reason: Pain Last Admin: 01/05/19 17:57 Dose: 650 mg Amlodipine Besylate (Norvasc) 5 mg PO DAILY [facility] Last Admin: 01/08/19 08:51 Dose: 5 mg Aspirin (Halfprin) 162 mg PO DAILY [facility] Last Admin: 01/08/19 08:50 Dose: 162 mg Atorvastatin Calcium (Lipitor) 40 mg PO BEDTIME [facility] Last Admin: 01/07/19 20:40 Dose: 40 mg Calcitriol (Rocaltrol) 0.25 mcg PO DAILY [facility] Last Admin: 01/08/19 08:50 Dose: 0.25 mcg Cholecalciferol (Vitamin D3) 1,000 units PO DAILY [facility] Last Admin: 01/08/19 08:51 Dose: 1,000 units Vancomycin HCl 1 gm/ Sodium (Chloride) 250 mls @ 166.667 mls/hr IV Q24H [facility] Last Admin: 01/07/19 20:40 Dose: 166.667 mls/hr Sodium Chloride (Normal Saline) 250 mls @ 100 mls/hr IV ASDIRECTED [facility] Last Admin: 01/07/19 20:41 Dose: 100 mls/hr Piperacillin Sod/Tazobactam (Sod 2.25 gm/ Sodium Chloride) 60 mls @ 120 mls/hr IV Q6H [facility] Last Admin: 01/08/19 09:02 Dose: 120 mls/hr Insulin Aspart (Novolog) 0 unit SUBCUT WITHMEALSANDBED [facility]; Protocol Last Admin: 01/08/19 07:56 Dose: 1 units Insulin Detemir (Levemir) 26 unit SUBCUT DAILY [facility] Lactobacillus Acidophilus/Rhamnosus (Multi-Letty Plus) 1 cap PO DAILY@1200 [facility] Last Admin: 01/07/19 12:07 Dose: 1 cap Levothyroxine Sodium (Levothyroxine) 75 mcg PO ACBREAKFAST [facility] Last Admin: 01/08/19 07:56 Dose: 75 mcg Lisinopril (Prinivil) 2.5 mg PO DAILY [facility] Last Admin: 01/08/19 08:49 Dose: 2.5 mg Sodium Chloride (Saline Flush) 10 ml FLUSH Q8HR PRN PRN Reason: keep vein open Last Admin: 01/08/19 09:04 Dose: 10 ml Tamsulosin HCl (Flomax) 0.4 mg PO DAILY [facility] Last Admin: 01/08/19 08:50 Dose: 0.4 mg Vancomycin HCl (Pharmacy To Dose - Vancomycin) 1 dose .XX ASDIRECTED [facility] Discontinued Medications Aspirin (Ecotrin) 325 mg PO DAILY [facility] Last Admin: 01/07/19 08:32 Dose: 325 mg Sodium Chloride (Normal Saline) 1,000 mls @ 999 mls/hr IV .BOLUS ONE Stop: 01/04/19 18:32 Last Admin: 01/04/19 17:45 Dose: 999 mls/hr Piperacillin/Tazobactam/ (Dextrose 3.375 gm/ Premix) 50 mls @ 100 mls/hr IV ONETIME ONE Stop: 01/04/19 18:44 Last Admin: 01/04/19 18:42 Dose: 100 mls/hr Piperacillin/Tazobactam/ (Dextrose 2.25 gm/ Premix) 33.333 mls @ 66.666 mls/hr IV Q6H [facility] Last Admin: 01/07/19 08:29 Dose: 66.6 mls/hr Piperacillin Sod/Tazobactam (Sod 2.25 gm/ Sodium Chloride) 50 mls @ 100 mls/hr IV Q6H [facility] Insulin Aspart (Novolog) 0 unit SUBCUT WITHMEALSANDBED [facility]; Protocol Last Admin: 01/07/19 08:01 Dose: Not Given Insulin Aspart (Novolog) 10 unit SUBCUT ONETIME ONE Stop: 01/04/19 20:21 Last Admin: 01/04/19 20:43 Dose: 10 units Insulin Detemir (Levemir) 23 unit SUBCUT DAILY [facility] Last Admin: 01/08/19 08:41 Dose: 23 units Ondansetron HCl (Zofran) 4 mg IVPUSH ONETIME ONE Stop: 01/04/19 17:33 Last Admin: 01/04/19 18:00 Dose: 4 mg Sodium Chloride (Normal Saline) 100 ml IV DAILY [facility] Last Admin: 01/06/19 10:48 Dose: Not Given - Exam Quality Assessment: No: Supplemental Oxygen General: Alert, Oriented Neck: Supple Lungs: Clear to Auscultation, Normal Respiratory Effort Cardiovascular: Regular Rate, Regular Rhythm GI/Abdominal Exam: Normal Bowel Sounds, Soft Back Exam: No: CVA Tenderness (L), CVA Tenderness (R) Peripheral Pulses: 2+: Radial (L), Radial (R) Skin: Other (Slightly receding redness plantar aspect right foot, generalized edema, slightly less painful today) Wound/Incisions: Erythema Improving Neurological: No New Focal Deficit Psy/Mental Status: Alert, Normal Affect, Normal Mood - Problem List Review Problem List Initiated/Reviewed/Updated: Yes - My Orders Last 24 Hours: My Active Orders 01/07/19 10:35 Consult to Case Management/Enrichment Teacher [CONS] Routine 01/07/19 12:00 B.Bif/B.Long/L.Acidoph/L.Rhamn [Multi-Letty Plus] 1 cap PO DAILY@1200 01/08/19 09:00 Aspirin [Halfprin] 162 mg PO DAILY Insulin Detemir [Levemir] 26 unit SUBCUT DAILY - Plan Plan:: History summary Mr Barriga is a 78-year-old gentleman who was admitted due to foot infection/ cellulitis right foot status post puncture wound from a toothpick he sustained on October 24. He was initially placed on doxycycline however he discontinued this medication as he was not able tolerated. Patient has uncontrolled Type 2 and September 2018 his home monotherapy Tresiba was increased due to a rising hemoglobin A1c of 9.7%. Patient lives alone and does not do very well with dietary and medication regimen. In follow closely by nephrology New symptoms today, diarrhea\ improving, negative C. difficile infection. Right foot dorsal aspect erythematous, slightly receding, bottom right foot, edematous, pustulated pocket however overall erythremia receding from previous demarcated border. CT scan. Right foot, no foreign body, extensive phlegmon changes with multiple foci of gas within the superficial soft tissues in the region the first metatarsal, phlegmonous changes extend into the plantar aspect of foot developing abscess however no drainable fluid collection at this time. Primary hospital concerns Right foot infection/cellulitis Neutrophilia, slightly improving T2DM, Diarrhea, improving CKD Stage IV/Proteinuria Diabetic nephropathy Secondary problems HLD, ASCVD 45%, mod dose statin however patient >75 y/o HTN, CCB, stable, minimal dosing MAYANK inhibitor Hypothyroidism, thyroid replacement therapy, Secondary hyperparathyroidism, Calcitriol BPH, Tamsulosin Disposition/Plan; offloading shoe, Add 1/2 strength Bactrim. Determined patient only taken insulin every other day at home due to fears of hypoglycemia however elevated hemoglobin A1c, increase Lantus. Protein Glucerna midday, elevate right foot, consider renal friendly GLP-1a if affordable for patient. Reduced ASA. PT consultation.
[2019-01-08] MEDS: Sulfamethoxazole/Trimethoprim 800-160 MG Tab PO SCH ×2 (13:25→21:16)
[2019-01-08] MEDS: B.Bifidum/B.Longum/L.Acidophilus/L.Rhamnosus (Probiotic) Cap PO SCH (13:25)
--- NOTE | 2019-01-08 13:59 | CONS ---
DATE OF CONSULTATION: 01/07/2019 CONSULTING PHYSICIAN: Shaquille Templeton MD REQUESTING PHYSICIAN: JANIS Sin PATIENT PROFILE: The patient is a 78-year-old patient with a known history of insulin-dependent diabetes mellitus with fair control and CKD stage 3. This patient was admitted to the hospital on 01/04/2019 because of an accident when he stepped on a toothpick at his house on 12/25/2018. The patient was able to remove it, and on 12/27/2018, was seen in the clinic and started on doxycycline 100 mg b.i.d. Due to nausea, the patient did not continue on the doxycycline. Also due to worsening of the weather, it had been noted by his nephew that he had not moved out of his chair. He was not eating and drinking well due to pain and discomfort of the right foot. He presented to the emergency room and was found to have severe cellulitis of the right foot. X-ray was obtained and did not show any air or foreign body. There was no vasculitis. CT scan was considered, but not done. His blood pressure was low at 86/61. He was afebrile on admission. His white count was elevated to 18.3, and his lactic acid was 2.0, which was top of normal. He did have blood cultures and his creatinine was elevated to 2.34. He has a history of CKD stage 3. I have been asked to evaluate this patient because of the possible infection of the right foot and possible incision and drainage. PAST MEDICAL HISTORY: His past history is positive for BPH, hypothyroidism, hypertension, and hyperlipidemia. PAST SURGICAL HISTORY: The patient does not remember his past surgeries. REVIEW OF SYSTEMS: HEAD/ENT: Negative. SKIN: Complains of redness and pain and swelling of the right foot. CARDIAC: No complaints of chest pain, dyspnea. LUNGS: No complaints of coughing, wheezing, etc. ABDOMEN: No complaints. EXTREMITIES: Complains of some arthritis. Complains of pain of the right foot along the bottom aspect. NEUROLOGICAL: No complaints. UROLOGICAL: No complaints. LABORATORY DATA: His white count has come down from 18.22 on 01/06/2019 to 17.22 on 01/07/2019. The hemoglobin is 11.4 and 11.6. The neutrophil count was 79.9 on 01/06/2019, it is now 75.6. This is slowly coming down through it. His BUN is 53 and today it is 48. Sodium, potassium, and chloride were normal. Creatinine has slightly increased from 2.38 on 01/06/2019 to 2.41 on 01/07/2019. Vancomycin trough was 15. IMPRESSION: My impression is that the patient has moderate to severe cellulitis of the right foot. There is no evidence of abscess at this time. It appears his clinical condition is improving and the white count is slowly coming down. Especially, the neutrophil count. As such, I would advise no incision and drainage at this point in time. Consideration to be given for CAT scan, but his creatinine level is high and therefore would hold off at this moment. We will keep a close observation and continue vancomycin for his antibiotics. He may continue on all his other medications as well. We will keep his leg elevated as much as possible. Avoid weightbearing at this time. Long-term consideration for placement of Darco boot for proper healing purposes. Thank you very much for this interesting consultation on this patient. /[id number]/MODL MTDD
[2019-01-08] MEDS: atorvaSTATin 40 MG Tab PO SCH (21:16)
[2019-01-09] MEDS: Acetaminophen 325 MG Tab PO PRN (02:14)
[2019-01-09] MEDS: Levothyroxine 75 MCG Tab PO SCH (06:38)
[2019-01-09] MEDS: Aspirin 81 MG Tab.EC PO SCH (08:07)
[2019-01-09] MEDS: Lisinopril 5 MG Tab PO SCH (08:07)
[2019-01-09] MEDS: Tamsulosin 0.4 MG Cap.ER PO SCH (08:07)
[2019-01-09] MEDS: amLODIPine 5 MG Tab PO SCH (08:08)
[2019-01-09] MEDS: Acetaminophen 500 MG Tab PO SCH (08:08)
[2019-01-09] MEDS: Sulfamethoxazole/Trimethoprim 800-160 MG Tab PO SCH (08:08)
[2019-01-09] MEDS: Calcitriol 0.25 MCG Cap PO SCH (08:08)
[2019-01-09] MEDS: Cholecalciferol (Vitamin D3) 1,000 Unit Tab PO SCH (08:08)
[2019-01-09] MEDS: Insulin Detemir 100 Units/ML 3 ML Pen SUBCUT SCH (08:12)
[2019-01-09] MEDS: Insulin Aspart 100 Units/ML 3 ML Pen SUBCUT SCH (08:12)
[2019-01-09 08:13] VITALS: BP 121/75
--- NOTE | 2019-01-09 11:05 | PCM.DCSUM1 ---
Discharge Summary - Hospital Course Diagnosis: Stroke: No - Discharge Data Discharge Date: 01/09/19 Discharge Disposition: DC/Tfer to Acute Hospital 02 Condition: Fair - Patient Summary/Data Consults: Consultations 01/07/19 09:30 Consult to Physical Therapy [PT Evaluation and Treatment] [CONS] Routine 01/07/19 10:35 Consult to Case Management/Education Department Chair [CONS] Routine - Discharge Plan *PRESCRIPTION DRUG MONITORING PROGRAM REVIEWED*: Not Applicable *COPY OF PRESCRIPTION DRUG MONITORING REPORT IN PATIENT ZULEMA: Not Applicable Home Medications: Home Meds Aspirin [Ecotrin] 325 mg PO DAILY 02/16/15 [History] Levothyroxine 75 mcg PO ACBREAKFAST 02/16/15 [History] Tamsulosin [Flomax] 0.4 mg PO DAILY 02/16/15 [History] atorvaSTATin [Lipitor] 40 mg PO BEDTIME 02/16/15 [History] Calcitriol [Rocaltrol] 0.25 mcg PO DAILY 06/20/16 [History] Acetaminophen 500 mg PO DAILY 02/08/17 [History] Cholecalciferol (Vitamin D3) [Vitamin D3] 1,000 units PO DAILY 02/09/17 [History ] Doxycycline Hyclate 100 mg PO BID 01/04/19 [History] Lisinopril 2.5 mg PO DAILY 01/04/19 [History] amLODIPine Besylate [Amlodipine Besylate] 5 mg PO DAILY 01/04/19 [History] Insulin Degludec [Tresiba] 23 unit SQ DAILY 01/07/19 [History] - Discharge Summary/Plan Comment DC Time >30 min.: Yes Discharge Summary/Plan Comment: Final diagnosis Right foot infection Possible gas-forming abscess Leukocytosis Summary This patient was admitted to the hospital for IV antibiotics due to cellulitis along with right foot infection. The patient stated he stepped on a toothpick on October 24 but he did not think the toothpick stayed in his foot. He was initially placed on doxycycline however he discontinued this medication as he was not able to tolerate it. Over time his family members were concerned about the patient as he had more pain and discomfort in his right foot he presented to the ED was found to have cellulitis of the right foot. X-rays were obtained at that time with no signs of vasculitis and no foreign body was noted he did have an elevated white count of 18.3 so he was admitted for IV antibiotics. Hospital course, patient did have initial improvement in white count however it never improved fully. He was initially on Zosyn and vancomycin and he was started on Bactrim eventually. Did have some improvement with significant receding redness, however he had ongoing generalized edema and pain in his foot. He did have some diarrhea however his C. diff was negative. He never became hemodynamically unstable, never ran a fever, A subsequent CT scan demonstrated no foreign body, however showed extensive phlegmon changes with multiple foci of gas within the superficial soft tissues in the region the first metatarsal, phlegmonous changes extend into the plantar aspect of foot developing abscess however no drainable fluid collection. Since there was no improvement in white count and generalized edema despite offloading, elevation, I consulted with Dr Goodwin [employer], along with Dr Coker, hospitalist and they recommended transferring the patient for surgical exploration. - General Info Functional Status: Reports: Tolerating Diet. Denies: New Symptoms - Review of Systems General: Denies: Fever Pulmonary: Reports: No Symptoms Cardiovascular: Reports: No Symptoms Gastrointestinal: Reports: Diarrhea Genitourinary: Reports: No Symptoms Skin: Reports: Other (Edematous right foot, some receding redness dorsal aspect) Neurological: Denies: Confusion - Patient Data Vitals - Most Recent: Last Vital Signs Temp 97.4 F 01/09/19 06:54 Pulse 83 01/09/19 06:54 Resp 20 01/09/19 06:54 BP 121/75 01/09/19 08:08 Pulse Ox 94 L 01/09/19 07:55 Weight - Most Recent: 132 lb 4.8 oz I&O - Last 24 hours: Intake & Output 01/08/19 01/09/19 01/09/19 22:59 06:59 14:59 Intake Total 220 495 Balance 220 495 Lab Results - Last 24 hrs: Laboratory Results - last 24 hr 01/08/19 01/08/19 01/08/19 Range/Units 11:50 17:14 21:13 WBC (5.00-10.00) 10^3/uL RBC (4.50-6.00) 10^6/uL Hgb (13.0-17.0) g/dL Hct (40.0-52.0) % MCV (82.0-92.0) fL MCH (27.0-31.0) pg MCHC (32.0-36.0) g/dL RDW (11.5-14.5) % Plt Count (150-400) 10^3/uL MPV (7.4-10.4) fL Immature Gran % (Auto) (0.0-5.0) % Neut % (Auto) (50.0-70.0) % Lymph % (Auto) (20.0-40.0) % [place] % (Auto) (2.0-8.0) % Eos % (Auto) (1.0-3.0) % Baso % (Auto) (0.0-1.0) % Immature Gran # (Auto) (0.00-0.50) 10^3/uL Neut # (Auto) (2.50-7.00) 10^3/uL Lymph # (Auto) (1.00-4.00) 10^3/uL Irion # (Auto) (0.10-0.80) 10^3/uL Eos # (Auto) (0.10-0.30) 10^3/uL Baso # (Auto) (0.00-0.10) 10^3/uL POC Glucose 302 H 138 H 273 H (74-106) mg/dl 01/09/19 01/09/19 Range/Units 07:05 07:10 WBC 17.26 H (5.00-10.00) 10^3/uL RBC 3.68 L (4.50-6.00) 10^6/uL Hgb 10.9 L (13.0-17.0) g/dL Hct 32.7 L (40.0-52.0) % MCV 88.9 (82.0-92.0) fL MCH 29.6 (27.0-31.0) pg MCHC 33.3 (32.0-36.0) g/dL RDW 12.9 (11.5-14.5) % Plt Count 367 (150-400) 10^3/uL MPV 9.6 (7.4-10.4) fL Immature Gran % (Auto) 1.2 (0.0-5.0) % Neut % (Auto) 74.3 H (50.0-70.0) % Lymph % (Auto) 15.4 L (20.0-40.0) % [place]ion % (Auto) 6.8 (2.0-8.0) % Eos % (Auto) 1.9 (1.0-3.0) % Baso % (Auto) 0.4 (0.0-1.0) % Immature Gran # (Auto) 0.20 (0.00-0.50) 10^3/uL Neut # (Auto) 12.84 H (2.50-7.00) 10^3/uL Lymph # (Auto) 2.65 (1.00-4.00) 10^3/uL Irion # (Auto) 1.18 H (0.10-0.80) 10^3/uL Eos # (Auto) 0.32 H (0.10-0.30) 10^3/uL Baso # (Auto) 0.07 (0.00-0.10) 10^3/uL POC Glucose 161 H (74-106) mg/dl PHILOMENA Results - Last 24 hrs: Microbiology 01/04/19 19:15 Aerobic Blood Culture - Preliminary Blood - Venous NO GROWTH AFTER 4 DAYS Anaerobic Blood Culture - Preliminary NO GROWTH AFTER 4 DAYS 01/04/19 18:28 Aerobic Blood Culture - Preliminary Blood NO GROWTH AFTER 4 DAYS Anaerobic Blood Culture - Preliminary NO GROWTH AFTER 4 DAYS Med Orders - Current: Current Medications Acetaminophen (Tylenol Extra Strength) 500 mg PO DAILY [facility] Last Admin: 01/09/19 08:08 Dose: 500 mg Acetaminophen (Tylenol) 650 mg PO Q6H PRN PRN Reason: Pain Last Admin: 01/09/19 02:14 Dose: 650 mg Amlodipine Besylate (Norvasc) 5 mg PO DAILY [facility] Last Admin: 01/09/19 08:08 Dose: 5 mg Aspirin (Halfprin) 162 mg PO DAILY [facility] Last Admin: 01/09/19 08:07 Dose: 162 mg Atorvastatin Calcium (Lipitor) 40 mg PO BEDTIME [facility] Last Admin: 01/08/19 21:16 Dose: 40 mg Calcitriol (Rocaltrol) 0.25 mcg PO DAILY [facility] Last Admin: 01/09/19 08:08 Dose: 0.25 mcg Cholecalciferol (Vitamin D3) 1,000 units PO DAILY [facility] Last Admin: 01/09/19 08:08 Dose: 1,000 units Vancomycin HCl 1 gm/ Sodium (Chloride) 250 mls @ 166.667 mls/hr IV Q24H [facility] Last Admin: 01/08/19 21:19 Dose: 166.667 mls/hr Sodium Chloride (Normal Saline) 250 mls @ 100 mls/hr IV ASDIRECTED [facility] Last Admin: 01/07/19 20:41 Dose: 100 mls/hr Insulin Aspart (Novolog) 0 unit SUBCUT WITHMEALSANDBED [facility]; Protocol Last Admin: 01/09/19 08:12 Dose: 1 units Insulin Detemir (Levemir) 26 unit SUBCUT DAILY [facility] Last Admin: 01/09/19 08:12 Dose: 26 units Lactobacillus Acidophilus/Rhamnosus (Multi-Letty Plus) 1 cap PO DAILY@1200 [facility] Last Admin: 01/08/19 13:25 Dose: 1 cap Levothyroxine Sodium (Levothyroxine) 75 mcg PO ACBREAKFAST [facility] Last Admin: 01/09/19 06:38 Dose: 75 mcg Lisinopril (Prinivil) 2.5 mg PO DAILY [facility] Last Admin: 01/09/19 08:07 Dose: 2.5 mg Sodium Chloride (Saline Flush) 10 ml FLUSH Q8HR PRN PRN Reason: keep vein open Last Admin: 01/08/19 23:18 Dose: 10 ml Tamsulosin HCl (Flomax) 0.4 mg PO DAILY [facility] Last Admin: 01/09/19 08:07 Dose: 0.4 mg Trimethoprim/Sulfamethoxazole (Septra Ds) 0.5 tab PO BIDMEALS [facility] Vancomycin HCl (Pharmacy To Dose - Vancomycin) 1 dose .XX ASDIRECTED [facility] Discontinued Medications Aspirin (Ecotrin) 325 mg PO DAILY [facility] Last Admin: 01/07/19 08:32 Dose: 325 mg Sodium Chloride (Normal Saline) 1,000 mls @ 999 mls/hr IV .BOLUS ONE Stop: 01/04/19 18:32 Last Admin: 01/04/19 17:45 Dose: 999 mls/hr Piperacillin/Tazobactam/ (Dextrose 3.375 gm/ Premix) 50 mls @ 100 mls/hr IV ONETIME ONE Stop: 01/04/19 18:44 Last Admin: 01/04/19 18:42 Dose: 100 mls/hr Piperacillin/Tazobactam/ (Dextrose 2.25 gm/ Premix) 33.333 mls @ 66.666 mls/hr IV Q6H [facility] Last Admin: 01/07/19 08:29 Dose: 66.6 mls/hr Piperacillin Sod/Tazobactam (Sod 2.25 gm/ Sodium Chloride) 50 mls @ 100 mls/hr IV Q6H [facility] Piperacillin Sod/Tazobactam (Sod 2.25 gm/ Sodium Chloride) 60 mls @ 120 mls/hr IV Q6H [facility] Last Admin: 01/08/19 09:02 Dose: 120 mls/hr Insulin Aspart (Novolog) 0 unit SUBCUT WITHMEALSANDBED [facility]; Protocol Last Admin: 01/07/19 08:01 Dose: Not Given Insulin Aspart (Novolog) 10 unit SUBCUT ONETIME ONE Stop: 01/04/19 20:21 Last Admin: 01/04/19 20:43 Dose: 10 units Insulin Detemir (Levemir) 23 unit SUBCUT DAILY [facility] Last Admin: 01/08/19 08:41 Dose: 26 units Ondansetron HCl (Zofran) 4 mg IVPUSH ONETIME ONE Stop: 01/04/19 17:33 Last Admin: 01/04/19 18:00 Dose: 4 mg Sodium Chloride (Normal Saline) 100 ml IV DAILY [facility] Last Admin: 01/06/19 10:48 Dose: Not Given Trimethoprim/Sulfamethoxazole (Septra Ds) 0.5 tab PO BID [facility] Last Admin: 01/09/19 08:08 Dose: 0.5 tab - Exam Quality Assessment: Denies: Supplemental Oxygen General: Reports: Alert, Oriented, Cooperative Neck: Reports: Supple Lungs: Reports: Clear to Auscultation, Normal Respiratory Effort Cardiovascular: Reports: Regular Rate, Regular Rhythm GI/Abdominal Exam: Soft. No: Distended Back Exam: Denies: CVA Tenderness (L), CVA Tenderness (R) Extremities: Increased Warmth, Redness, Other (Right foot, dorsal aspect erythematous however nontender, somewhat receding from demarcated line, plantar aspect superficial fluid pocket noted however tender around first-second metatarsal with generalized edema) Psy/Mental Status: Reports: Alert
[2019-01-09] MEDS ORDERED: Sulfamethoxazole/Trimethoprim 800-160 MG Tab PO SCH (18:00)
== END 2019-01-09 11:50 | DRG 603 ==
LOC: KA.ED 17:05 → KA.MS 18:30
PROVIDERS: ADMIT Physician Assistant Surgical; ATTEND Physician Assistant Medical
DX: L03.115 Cellulitis of right lower limb (principal); L02.611 Cutaneous abscess of right foot; N18.4 Chronic kidney disease, stage 4 (severe); N25.81 Secondary hyperparathyroidism of renal origin; I12.9 Hypertensive chronic kidney disease with stage 1 through stage 4 chronic kidney disease, or unspecified chronic kidney disease; E11.22 Type 2 diabetes mellitus with diabetic chronic kidney disease; N40.0 Benign prostatic hyperplasia without lower urinary tract symptoms; E03.9 Hypothyroidism, unspecified; E78.5 Hyperlipidemia, unspecified; I95.9 Hypotension, unspecified; E86.0 Dehydration; T36.4X5A Adverse effect of tetracyclines, initial encounter; M19.90 Unspecified osteoarthritis, unspecified site; E11.65 Type 2 diabetes mellitus with hyperglycemia; D70.9 Neutropenia, unspecified; R19.7 Diarrhea, unspecified; Z79.82 Long term (current) use of aspirin; Z79.899 Other long term (current) drug therapy; Z79.4 Long term (current) use of insulin
CPT/HCPCS: 36415; 73630-RT; 73700-RT; 80048; 80053; 80202; 82962; 83605; 85025; 86140; 87040; 87324; 96360; 97110-GP; 97161-GP; 99284; 99284-25; A9270-GY; J1815-GY; J2405; J2543; J3370; J7030; J7050

== ENCOUNTER 2019-01-15 13:13 | Inpatient (IN) | payer MEDICARE, BC ==
[2019-01-15] MEDS ORDERED: Sodium Chloride 0.9% 10 ML Syringe FLUSH SCH (16:30)
[2019-01-15] MEDS ORDERED: Piperacillin/Tazobactam/Dext 3.375 GM in Premix Bag 1 BAG IV SCH (16:35)
[2019-01-15] MEDS: Sodium Chloride 0.9% 10 ML Syringe FLUSH SCH ×2 (16:50→17:42)
[2019-01-15] MEDS: Piperacillin/Tazobactam/Dext 3.375 GM in Premix Bag 1 BAG IV SCH (16:50)
[2019-01-15] MEDS: Sodium Chloride 0.9% 250 ML IV SCH (16:50)
[2019-01-15] MEDS ORDERED: Ondansetron 4 MG Tab.DIS PO PRN (19:46)
[2019-01-15] MEDS ORDERED: DOCUSATE SODIUM RECTAL PRN (19:46)
[2019-01-15] MEDS ORDERED: Acetaminophen 500 MG Tab PO PRN (19:46)
[2019-01-15] MEDS ORDERED: Bisacodyl 10 MG Supp RECTAL PRN (19:46)
[2019-01-15] MEDS ORDERED: Melatonin 3 MG Tab PO PRN (19:46)
[2019-01-15] MEDS ORDERED: Sodium Chloride 0.9% 10 ML SDV IV SCH (20:00)
[2019-01-15] MEDS ORDERED: DEXTROSE IV SCH (20:00)
[2019-01-15] MEDS ORDERED: TAZOBACTAM IV SCH (20:00)
[2019-01-15] MEDS ORDERED: PIPERACILLIN IV SCH (20:00)
[2019-01-15] MEDS ORDERED: Calcium Citrate/Vitamin D3 315 MG-250 Unit Tab PO PRN (20:45)
[2019-01-15] MEDS: Acetaminophen 500 MG Tab PO SCH (21:38)
[2019-01-15] MEDS: Triamcinolone Acetonide 0.1% Crm 15 GM Tube TOP SCH (21:39)
[2019-01-16] MEDS: Piperacillin/Tazobactam/Dext 3.375 GM in Premix Bag 1 BAG IV SCH ×3 (00:39→16:36)
[2019-01-16] MEDS: Sodium Chloride 0.9% 10 ML Syringe FLUSH SCH ×6 (00:39→16:35)
[2019-01-16] MEDS: Levothyroxine 75 MCG Tab PO SCH (07:47)
[2019-01-16] MEDS: Acetaminophen 500 MG Tab PO SCH ×3 (08:19→21:24)
[2019-01-16] MEDS: Sodium Chloride 0.9% 250 ML IV SCH (08:19)
[2019-01-16] MEDS: amLODIPine 5 MG Tab PO SCH (08:19)
[2019-01-16] MEDS: atorvaSTATin 40 MG Tab PO SCH (08:20)
[2019-01-16] MEDS: Tamsulosin 0.4 MG Cap.ER PO SCH (08:20)
[2019-01-16] MEDS: Triamcinolone Acetonide 0.1% Crm 15 GM Tube TOP SCH ×2 (08:20→21:25)
[2019-01-16] MEDS: Insulin Aspart 100 Units/ML 3 ML Pen SUBCUT SCH ×3 (08:26→18:16)
[2019-01-16] MEDS: Insulin Detemir 100 Units/ML 3 ML Pen SUBCUT SCH (08:27)
[2019-01-16] MEDS ORDERED: INSULIN DEGLUDEC SQ SCH (09:00)
--- NOTE | 2019-01-16 10:13 | PCM.HP ---
H&P History of Present Illness - General Date of Service: 01/16/19 Admit Problem/Dx: Admission Diagnosis/Problem Admission Diagnosis/Problem Weakness Source of Information: Patient, Old Records History Limitations: Reports: No Limitations - Related Data Allergies/Adverse Reactions: Allergies Allergy/AdvReac Type Severity Reaction Status Date / Time No Known Drug Allergies Allergy Cannot Verified 01/15/19 11:23 Remember Home Medications: Home Meds Levothyroxine 75 mcg PO ACBREAKFAST 02/16/15 [History] Tamsulosin [Flomax] 0.4 mg PO DAILY 02/16/15 [History] atorvaSTATin [Lipitor] 40 mg PO DAILY 02/16/15 [History] Acetaminophen 1,000 mg PO TID 02/08/17 [History] amLODIPine Besylate [Amlodipine Besylate] 5 mg PO DAILY 01/04/19 [History] Insulin Degludec [Tresiba] 23 unit SQ DAILY 01/07/19 [History] Acetaminophen [Tylenol Extra Strength] 500 mg PO Q4H PRN 01/15/19 [History] Bisacodyl [Dulcolax] 10 mg RECTAL DAILY PRN 01/15/19 [History] Calcium Carbonate/Vitamin D3 [Calcium Carb 500 MG] 500 mg PO QID PRN 01/15/19 [ History] Dextrose 50 % In Water [Dextrose 50%-Water Syringe] 50 ml IV ASDIRECTED [History] Dextrose [Glucose] 16 gram PO ASDIRECTED PRN 01/15/19 [History] Docusate Sodium [Docusol] 1 enema RECTAL DAILY PRN 01/15/19 [History] Glucagon HCl 1 mg IM DAILY PRN 01/15/19 [History] Heparin Sodium 5,000 unit SQ Q8H 01/15/19 [History] Heparin Sodium [Heparin Lock Flush 100 Units/ML] 300 units IV Q8H 01/15/19 [ History] Insulin Aspart [NovoLOG] See Protocol SQ TID 01/15/19 [History] Melatonin 3 mg PO BEDTIME PRN 01/15/19 [History] Ondansetron [Zofran ODT] 4 mg PO Q4H PRN 01/15/19 [History] Piperacillin/Tazobactam/Dext [Zosyn in Dextrose Iso-Osmotic 3.375 GM] 3.375 gram IV Q8H 01/15/19 [History] Sennosides/Docusate Sodium [Senna Plus Tablet] 2 tab PO BID PRN 01/15/19 [ History] Sodium Chloride 0.9% [Normal Saline] 10 ml IV Q8H 01/15/19 [History] Triamcinolone Acetonide [Triamcinolone Acetonide 0.1% Crm] 1 applic TOP BID [History] Past Medical History HEENT History: Reports: Cataract, Impaired Vision Cardiovascular History: Reports: High Cholesterol, Hypertension Respiratory History: Reports: None Gastrointestinal History: Reports: None Genitourinary History: Reports: BPH, Other (See Below), Renal Disease, Urinary Incontinence Other Genitourinary History: CKD stage 4 Musculoskeletal History: Reports: Arthritis Neurological History: Reports: None Psychiatric History: Reports: None Endocrine/Metabolic History: Reports: Diabetes, Type II, Hypothyroidism Hematologic History: Reports: None Immunologic History: Reports: None Oncologic (Cancer) History: Reports: None Dermatologic History: Reports: Other (See Below) Other Dermatologic History: I&D to right foot 12/2018 from [facility] - Infectious Disease History Infectious Disease History: Reports: Other (See Below) Other Infectious Disease History: Patient can't remember - Past Surgical History Head Surgeries/Procedures: Reports: None Cardiovascular Surgical History: Reports: None Respiratory Surgical History: Reports: None GI Surgical History: Reports: Colonoscopy Endocrine Surgical History: Reports: None Neurological Surgical History: Reports: None Musculoskeletal Surgical History: Reports: None Social & Family History - Family History Family Medical History: Noncontributory - Tobacco Use Smoking Status *Q: Never Smoker - Caffeine Use Caffeine Use: Reports: Coffee, Soda - Recreational Drug Use Recreational Drug Use: No H&P Review of Systems - Review of Systems: Review Of Systems: See Below General: Reports: No Symptoms HEENT: Reports: No Symptoms Pulmonary: Reports: No Symptoms Cardiovascular: Reports: No Symptoms Gastrointestinal: Reports: No Symptoms Genitourinary: Reports: No Symptoms Musculoskeletal: Reports: Foot Pain Skin: Reports: Wound Psychiatric: Reports: No Symptoms Neurological: Reports: Difficulty Walking Hematologic/Lymphatic: Reports: No Symptoms Immunologic: Reports: No Symptoms Exam - Exam Exam: See Below - Vital Signs Vital Signs: Last Vital Signs Temp 98.5 F 01/16/19 06:25 Pulse 76 01/16/19 06:25 Resp 18 01/16/19 06:25 BP 120/62 01/16/19 08:19 Pulse Ox 94 L 01/16/19 08:45 Weight: 143 lb 12.8 oz - Exam Quality Assessment: DVT Prophylaxis. No: Supplemental Oxygen General: Alert, Oriented, 4 HEENT: PERRLA, Hearing Intact, Mucosa Moist & Shafter, Nares Patent, Normal Nasal Septum, Posterior Pharynx Clear, Conjunctiva Clear, EOMI, EACs Clear, TMs Clear Neck: Supple, Trachea Midline, 2 Lungs: Clear to Auscultation, Normal Respiratory Effort Cardiovascular: Regular Rate, Regular Rhythm GI/Abdominal Exam: Normal Bowel Sounds, Soft, Non-Tender, No Organomegaly, No Distention, No Abnormal Bruit, No Mass, Pelvis Stable (Male) Exam: Deferred Rectal (Males) Exam: Deferred Back Exam: No: CVA Tenderness (L), CVA Tenderness (R) Extremities: No Pedal Edema Peripheral Pulses: 2+: Radial (L), Radial (R) Skin: Wound, Incision (Right foot) Neurological: Cranial Nerves Intact, Reflexes Equal Bilateral Neuro Extensive - Mental Status: Alert, Oriented x3, Normal Mood/Affect, Normal Cognition Neuro Extensive - Motor, Sensory, Reflexes: CN II-XII Intact, Normal Gait, Normal Reflexes Psychiatric: Alert, Normal Affect, Normal Mood - Patient Data Lab Results Last 24 hrs: Laboratory Results - last 24 hr 01/15/19 Range/Units 17:47 POC Glucose 179 H (74-106) mg/dl Problem List Initiated/Reviewed/Updated: Yes Orders Last 24hrs: Active Orders 24 hr Category Date Time Status Patient Status [ADT] Routine ADT 01/15/19 11:18 Ordered Antiembolic Devices [RC] 0900,2100 Care 01/15/19 11:21 Active Blood Glucose Check, Bedside [RC] QIDACANDBED Care 01/15/19 11:18 Active Communication Order [RC] DAILY Care 01/15/19 12:56 Active Communication Order [RC] DAILY Care 01/15/19 13:04 Active Communication Order [RC] DAILY Care 01/15/19 13:39 Active Communication Order [RC] DAILY Care 01/15/19 19:31 Active Communication Order [RC] DAILY Care 01/15/19 19:32 Active Diabetes Education [RC] Click to Edit Care 01/15/19 11:21 Active Elevate Extremity [RC] BID Care 01/15/19 13:04 Active Intake and Output [RC] 1400,2200,0600 Care 01/15/19 11:18 Active Oxygen Therapy [RC] .PRN Care 01/15/19 11:18 Active Up With Assistance [RC] ASDIRECTED Care 01/15/19 11:18 Active VTE/DVT Education [RC] PER UNIT ROUTINE Care 01/15/19 11:18 Active Vital Signs [RC] 0700,1900 Care 01/15/19 11:18 Active PT Evaluation and Treatment [CONS] Routine Cons 01/15/19 11:18 Active [employer] Diet [DIET] Diet 01/15/19 Dinner Active CBC WITH AUTO DIFF [HEME] Q7D Lab 01/21/19 05:11 Ordered CBC WITH AUTO DIFF [HEME] Q7D Lab 01/28/19 05:11 Ordered CBC WITH AUTO DIFF [HEME] Q7D Lab 02/04/19 05:11 Ordered CBC WITH AUTO DIFF [HEME] Q7D Lab 02/11/19 05:11 Ordered CBC WITH AUTO DIFF [HEME] Q7D Lab 02/18/19 05:11 Ordered CBC WITH AUTO DIFF [HEME] Q7D Lab 02/25/19 05:11 Ordered CREATININE W/GFR [CHEM] Q7D Lab 01/21/19 05:11 Ordered CREATININE W/GFR [CHEM] Q7D Lab 01/28/19 05:11 Ordered CREATININE W/GFR [CHEM] Q7D Lab 02/04/19 05:11 Ordered CREATININE W/GFR [CHEM] Q7D Lab 02/11/19 05:11 Ordered CREATININE W/GFR [CHEM] Q7D Lab 02/18/19 05:11 Ordered CREATININE W/GFR [CHEM] Q7D Lab 02/25/19 05:11 Ordered CRP [C-REACTIVE PROTEIN] [CHEM] Q7D Lab 01/21/19 05:11 Ordered CRP [C-REACTIVE PROTEIN] [CHEM] Q7D Lab 01/28/19 05:11 Ordered CRP [C-REACTIVE PROTEIN] [CHEM] Q7D Lab 02/04/19 05:11 Ordered CRP [C-REACTIVE PROTEIN] [CHEM] Q7D Lab 02/11/19 05:11 Ordered CRP [C-REACTIVE PROTEIN] [CHEM] Q7D Lab 02/18/19 05:11 Ordered CRP [C-REACTIVE PROTEIN] [CHEM] Q7D Lab 02/25/19 05:11 Ordered Acetaminophen [Tylenol Extra Strength] Med 01/15/19 21:00 Active 1,000 mg PO TID Acetaminophen [Tylenol Extra Strength] Med 01/15/19 19:46 Active 500 mg PO Q4H PRN Bisacodyl [Dulcolax] Med 01/15/19 19:46 Active 10 mg RECTAL DAILY PRN Calcium Citrate/Vitamin D3 [Calcium Citrate + D] Med 01/15/19 20:45 Active 1 tab PO QID PRN Docusate Sodium [Docusol] Med 01/15/19 19:46 Pending 1 enema RECTAL DAILY PRN Docusate Sodium/Sennosides [Senna Plus] Med 01/15/19 19:46 Active 2 tab PO BID PRN Heparin Sodium [Heparin Lock Flush 100 Units/ML] Med 01/15/19 17:00 Active 300 units FLUSH Q8H Insulin Aspart [NovoLOG] Med 01/16/19 08:00 Active See Protocol SUBCUT TIDMEALS Insulin Detemir [Levemir] Med 01/16/19 09:00 Active 23 unit SUBCUT DAILY Levothyroxine Med 01/16/19 07:30 Active 75 mcg PO ACBREAKFAST Melatonin Med 01/15/19 19:46 Active 3 mg PO BEDTIME PRN Ondansetron [Zofran ODT] Med 01/15/19 19:46 Active 4 mg PO Q4H PRN Piperacillin/Tazobactam/Dext [Zosyn in Dextrose Iso- Med 01/15/19 16:30 Active Osmotic 3.375 GM] 3.375 gm Premix Bag 1 bag IV Q8H Sodium Chloride 0.9% [Normal Saline] 250 ml Med 01/15/19 16:30 Active IV DAILY Sodium Chloride 0.9% [Saline Flush] Med 01/15/19 16:30 Active 10 ml FLUSH Q8H Sodium Chloride 0.9% [Saline Flush] Med 01/15/19 17:00 Active 10 ml FLUSH Q8H Tamsulosin [Flomax] Med 01/16/19 09:00 Active 0.4 mg PO DAILY Triamcinolone Acetonide [Triamcinolone Acetonide 0.1% Med 01/15/19 21:00 Active Crm] 0 gm TOP BID amLODIPine [Norvasc] Med 01/16/19 09:00 Active 5 mg PO DAILY atorvaSTATin [Lipitor] Med 01/16/19 09:00 Active 40 mg PO DAILY Glucose Management Sub Q Reflex [OM.PC] Click To Edit Oth 01/15/19 11:18 Ordered Ice Therapy [OM.PC] Routine Oth 01/15/19 13:04 Ordered Sequential Compression Device [OM.PC] Routine Oth 01/15/19 11:18 Ordered Weight bearing status [OM.PC] Routine Oth 01/15/19 13:04 Ordered Resuscitation Status Routine Resus Stat 01/15/19 12:09 Ordered Medication Orders Acetaminophen (Tylenol Extra Strength) 1,000 mg PO TID [facility] Last Admin: 01/16/19 08:19 Dose: 1,000 mg Admin: 01/15/19 21:38 Dose: 1,000 mg Acetaminophen (Tylenol Extra Strength) 500 mg PO Q4H PRN PRN Reason: Pain Amlodipine Besylate (Norvasc) 5 mg PO DAILY [facility] Last Admin: 01/16/19 08:19 Dose: 5 mg Atorvastatin Calcium (Lipitor) 40 mg PO DAILY [facility] Last Admin: 01/16/19 08:20 Dose: 40 mg Bisacodyl (Dulcolax) 10 mg RECTAL DAILY PRN PRN Reason: Constipation Calcium Citrate (Calcium Citrate + D) 1 tab PO QID PRN PRN Reason: HEARTBURN Last Admin: 01/15/19 21:38 Dose: 1 tab Heparin Sodium (Porcine) (Heparin Lock Flush 100 Units/Ml) 300 units FLUSH Q8H [facility] Last Admin: 01/16/19 09:19 Dose: 300 units Admin: 01/16/19 01:17 Dose: 300 units Admin: 01/15/19 17:42 Dose: 300 units Sodium Chloride (Normal Saline) 250 mls @ 100 mls/hr IV DAILY [facility] Last Admin: 01/16/19 08:19 Dose: 100 mls/hr Admin: 01/15/19 16:50 Dose: 100 mls/hr Piperacillin/Tazobactam/ (Dextrose 3.375 gm/ Premix) 50 mls @ 100 mls/hr IV Q8H [facility] Last Admin: 01/16/19 08:19 Dose: 100 mls/hr Infusion: 01/16/19 01:09 Dose: 100 mls/hr Admin: 01/16/19 00:39 Dose: 100 mls/hr Infusion: 01/15/19 17:20 Dose: 100 mls/hr Admin: 01/15/19 16:50 Dose: 100 mls/hr Insulin Aspart (Novolog) 0 unit SUBCUT TIDMEALS [facility]; Protocol Last Admin: 01/16/19 08:26 Dose: 2 units Insulin Detemir (Levemir) 23 unit SUBCUT DAILY [facility] Last Admin: 01/16/19 08:27 Dose: 23 units Levothyroxine Sodium (Levothyroxine) 75 mcg PO ACBREAKFAST [facility] Last Admin: 01/16/19 07:47 Dose: 75 mcg Melatonin (Melatonin) 3 mg PO BEDTIME PRN PRN Reason: Insomnia Last Admin: 01/15/19 21:38 Dose: 3 mg Non-Formulary Medication (Docusate Sodium [Docusol]) 1 enema RECTAL DAILY PRN PRN Reason: Constipation Ondansetron HCl (Zofran Odt) 4 mg PO Q4H PRN PRN Reason: Nausea Senna/Docusate Sodium (Senna Plus) 2 tab PO BID PRN PRN Reason: Constipation Sodium Chloride (Saline Flush) 10 ml FLUSH Q8H [facility] Last Admin: 01/16/19 09:20 Dose: 10 ml Admin: 01/16/19 01:17 Dose: 10 ml Admin: 01/15/19 17:42 Dose: 10 ml Sodium Chloride (Saline Flush) 10 ml FLUSH Q8H [facility] Last Admin: 01/16/19 08:26 Dose: 10 ml Admin: 01/16/19 00:39 Dose: 10 ml Admin: 01/15/19 16:50 Dose: 10 ml Tamsulosin HCl (Flomax) 0.4 mg PO DAILY [facility] Last Admin: 01/16/19 08:20 Dose: 0.4 mg Triamcinolone Acetonide (Triamcinolone Acetonide 0.1% Crm) 0 gm TOP BID [facility] Last Admin: 01/16/19 08:20 Dose: 1 applic Admin: 01/15/19 21:39 Dose: 1 applic Assessment/Plan Comment:: History of present illness 78-year-old gentleman was placed in nursing home facility here at [facility] after having been transferred to a tertiary hospital in [facility] for surgical debridement and exploration of his right foot after the patient has stepped on a toothpick. He returns to us in a swing bed capacity for physical therapy and IV antibiotics. She had a CT of his right foot that demonstrated multiple gas foci of soft tissue near first metatarsal and plantar aspect of foot, concern for developing abscess on plantar aspect. Intra- operative observation was noted that the patient had extensive amount of purulence 1st interspace tracking up FDL tendon sheath to arch with 4cm tooth pick removed. She was started on Zosyn due to pansensitive Enterococcus faecalis. Social Lives semi-independently [place] with support from family Primary problems S/P incision and drainage DOS January 09 and 01/11, Per ID patient will need 4 weeks more of IV Zosyn treatment. Intermittent episodes of diarrhea on antibiotics, initiate probioticsin setting of ongoing antibiotic use. PICC line placed on 01/15. SHAMEKA, holding MAYANK inhibitor addition, creatinine elevated above baseline Chronic, stable problems Hyperparathyroidism d/t CKD ,Calcitriol, monitor creatinine CKD, stage IV, T2DM, Tresiba 23 units in the morning, or lantus HTN amlodipine HLD BPH Hypothyroidism Cognitive impairment, mild. CODE STATUS, full code DVT prophylaxis, LMWH Activity, NWB right foot except on heel when walking boot Follow-up 3 month post discharge with nephrology for management of hyperparathyroidism and CKD podiatry on January 21 at [facility] Infectious disease, 4 weeks post discharge--appointment made
[2019-01-17] MEDS: Sodium Chloride 0.9% 10 ML Syringe FLUSH SCH ×7 (00:14→17:27)
[2019-01-17] MEDS: Piperacillin/Tazobactam/Dext 3.375 GM in Premix Bag 1 BAG IV SCH ×3 (00:16→16:43)
[2019-01-17] MEDS: Sodium Chloride 0.9% 250 ML IV SCH (08:08)
[2019-01-17] MEDS: atorvaSTATin 40 MG Tab PO SCH (08:09)
[2019-01-17] MEDS: Levothyroxine 75 MCG Tab PO SCH (08:09)
[2019-01-17] MEDS: Acetaminophen 500 MG Tab PO SCH ×3 (08:10→20:45)
[2019-01-17] MEDS: Tamsulosin 0.4 MG Cap.ER PO SCH (08:11)
[2019-01-17] MEDS: Insulin Aspart 100 Units/ML 3 ML Pen SUBCUT SCH ×3 (08:11→17:25)
[2019-01-17] MEDS: Triamcinolone Acetonide 0.1% Crm 15 GM Tube TOP SCH ×2 (08:13→20:44)
[2019-01-17] MEDS: amLODIPine 5 MG Tab PO SCH (08:18)
[2019-01-17] MEDS: Enoxaparin 30 MG/0.3 ML Syringe SUBCUT SCH (10:33)
[2019-01-17] MEDS: Insulin Detemir 100 Units/ML 3 ML Pen SUBCUT SCH (10:34)
[2019-01-18] MEDS: Sodium Chloride 0.9% 10 ML Syringe FLUSH SCH ×6 (00:36→18:21)
[2019-01-18] MEDS: Piperacillin/Tazobactam/Dext 3.375 GM in Premix Bag 1 BAG IV SCH ×3 (00:37→18:15)
[2019-01-18 06:41] VITALS: BP 116/63
[2019-01-18] MEDS: Levothyroxine 75 MCG Tab PO SCH (08:12)
[2019-01-18] MEDS: Insulin Aspart 100 Units/ML 3 ML Pen SUBCUT SCH ×3 (08:15→18:18)
[2019-01-18] MEDS: Sodium Chloride 0.9% 250 ML IV SCH (09:16)
[2019-01-18] MEDS: amLODIPine 5 MG Tab PO SCH (09:20)
[2019-01-18] MEDS: atorvaSTATin 40 MG Tab PO SCH (09:21)
[2019-01-18] MEDS: Acetaminophen 500 MG Tab PO SCH ×2 (09:21→16:05)
[2019-01-18] MEDS: Tamsulosin 0.4 MG Cap.ER PO SCH (09:22)
[2019-01-18] MEDS: Insulin Detemir 100 Units/ML 3 ML Pen SUBCUT SCH (09:24)
[2019-01-18 10:14] LABS: HEMOGLOBIN A1C 9.4 % (4.3-5.7)
[2019-01-18] MEDS: Enoxaparin 30 MG/0.3 ML Syringe SUBCUT SCH (11:15)
[2019-01-18] MEDS: Triamcinolone Acetonide 0.1% Crm 15 GM Tube TOP SCH (11:16)
[2019-01-18] MEDS ORDERED: Loperamide 2 MG Cap PO PRN (11:59)
[2019-01-18] MEDS ORDERED: Sodium Chloride 0.9% 500 ML IV ONE (19:37)
[2019-01-18] MEDS ORDERED: Sodium Chloride 0.9% 1,000 ML IV SCH (19:45)
--- NOTE | 2019-01-19 12:48 | PCM.DCSUM1 ---
Discharge Summary - Hospital Course Free Text/Narrative:: Date of admission: 01/15/19 Date of discharge: 01/18/19 to acute status Discharge diagnoses: 1. Melena 2. Syncope 3. Hypotension and tachycardia 4. 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 CKD, stage III, with recent superimposed SHAMEKA 6. DMT2, uncontrolled (A1c 9.4 on 01/18/19) 7. Hypothyroidism (TSH 2.2 on 01/18/19) 8. Hyperlipidemia 9. Mild cognitive impairment 10. Deconditioning Consultations: None Procedures: None Hospital course: Mr. Barriga is 78-year-old man with a history notable for recent gas gangrene related to stepping on a toothpick on 12/21/18, CKD stage III, uncontrolled type 2 diabetes mellitus, and mild cognitive impairment. He underwent incision and debridement of the right foot on 01/09/19 and 01/11/19 at [facility]. Cultures showed pansensitive Enterococcus and he was placed on Zosyn for a planned 4 week course. He was discharged to [facility], in swing bed status,on 01/15/19 for ongoing IV antibiotics through PICC line and physical rehabilitation in the setting of current nonweightbearing status of the right foot. He was progressing with physical therapy and receiving IV antibiotics as well as home medications without difficulty until the evening of 01/18/19. He was noted around 1900 to have 4 dark, loose bowel movements and an episode of syncope in which he was helped to the floor while transferring within his room. He was initially noted to have a blood pressure of less than 70 systolic. BG was in the 200s, whichwas around his recent baseline. BG was in the 200s. Due to concern for lower GI bleed, he will be transferred to acute status for work- up and management. - Discharge Data Discharge Date: 01/18/19 Discharge Disposition: Admitted As Inpatient 65 Condition: Serious - Patient Summary/Data Consults: Consultations 01/15/19 11:18 PT Evaluation and Treatment [CONS] Routine - Patient Instructions Diet: NPO Activity: Bedrest - Discharge Plan *PRESCRIPTION DRUG MONITORING PROGRAM REVIEWED*: Not Applicable *COPY OF PRESCRIPTION DRUG MONITORING REPORT IN PATIENT ZULEMA: Not Applicable Home Medications: Home Meds Levothyroxine 75 mcg PO ACBREAKFAST 02/16/15 [History] Tamsulosin [Flomax] 0.4 mg PO DAILY 02/16/15 [History] atorvaSTATin [Lipitor] 40 mg PO DAILY 02/16/15 [History] Acetaminophen 1,000 mg PO TID 02/08/17 [History] amLODIPine Besylate [Amlodipine Besylate] 5 mg PO DAILY 01/04/19 [History] Acetaminophen [Tylenol Extra Strength] 500 mg PO Q4H PRN 01/15/19 [History] Bisacodyl [Dulcolax] 10 mg RECTAL DAILY PRN 01/15/19 [History] Calcium Carbonate/Vitamin D3 [Calcium Carb 500 MG] 500 mg PO QID PRN 01/15/19 [ History] Insulin Aspart [NovoLOG] See Protocol SQ TID 01/15/19 [History] Melatonin 3 mg PO BEDTIME PRN 01/15/19 [History] Ondansetron [Zofran ODT] 4 mg PO Q4H PRN 01/15/19 [History] Piperacillin/Tazobactam/Dext [Zosyn in Dextrose Iso-Osmotic 3.375 GM] 3.375 gram IV Q8H 01/15/19 [History] Sennosides/Docusate Sodium [Senna Plus Tablet] 2 tab PO BID PRN 01/15/19 [ History] Sodium Chloride 0.9% [Normal Saline] 10 ml IV Q8H 01/15/19 [History] Triamcinolone Acetonide [Triamcinolone Acetonide 0.1% Crm] 1 applic TOP BID [History] Enoxaparin [Lovenox] 30 mg SUBCUT DAILY 01/18/19 [History] Insulin Detemir [Levemir] 23 units SUBCUT DAILY 01/18/19 [History] Loperamide [Imodium] 2 mg PO Q4H PRN 01/18/19 [History] - Discharge Summary/Plan Comment DC Time >30 min.: Yes - Patient Data Vitals - Most Recent: Last Vital Signs Temp 37.3 C 01/18/19 06:40 Pulse 91 01/18/19 06:40 Resp 16 01/18/19 06:40 BP 116/63 01/18/19 09:20 Pulse Ox 92 L 01/18/19 09:45 Weight - Most Recent: 65.227 kg Lab Results - Last 24 hrs: Laboratory Results - last 24 hr 01/18/19 01/18/19 01/18/19 Range/Units 18:04 19:16 19:38 POC Glucose 177 H 226 H 243 H (74-106) mg/dl PHILOMENA Results - Last 24 hrs: Microbiology 01/16/19 09:45 Miscellaneous Reference Culture - Preliminary Wound - Foot, Right Enterococcus Species Gram Stain - Final Med Orders - Current: Current Medications Discontinued Medications Acetaminophen (Tylenol Extra Strength) 1,000 mg PO TID [facility] Last Admin: 01/18/19 16:05 Dose: 1,000 mg Acetaminophen (Tylenol Extra Strength) 500 mg PO Q4H PRN PRN Reason: Pain Amlodipine Besylate (Norvasc) 5 mg PO DAILY [facility] Last Admin: 01/18/19 09:20 Dose: 5 mg Atorvastatin Calcium (Lipitor) 40 mg PO DAILY [facility] Last Admin: 01/18/19 09:21 Dose: 40 mg Bisacodyl (Dulcolax) 10 mg RECTAL DAILY PRN PRN Reason: Constipation Calcium Citrate (Calcium Citrate + D) 1 tab PO QID PRN PRN Reason: HEARTBURN Last Admin: 01/15/19 21:38 Dose: 1 tab Enoxaparin Sodium (Lovenox) 30 mg SUBCUT Q24H [facility] Last Admin: 01/18/19 11:15 Dose: 30 mg Heparin Sodium (Porcine) (Heparin Lock Flush 100 Units/Ml) 500 units FLUSH Q8HR [facility] Heparin Sodium (Porcine) (Heparin Lock Flush 100 Units/Ml) 300 units FLUSH Q8HR [facility] Heparin Sodium (Porcine) (Heparin Lock Flush 100 Units/Ml) 300 units FLUSH Q8H [facility] Last Admin: 01/16/19 09:19 Dose: 300 units Heparin Sodium (Porcine) (Heparin Lock Flush 100 Units/Ml) 500 units FLUSH Q8H [facility] Last Admin: 01/16/19 02:31 Dose: Not Given Sodium Chloride (Normal Saline) 250 mls @ 100 mls/hr IV DAILY [facility] Last Admin: 01/18/19 09:16 Dose: 100 mls/hr Piperacillin/Tazobactam/ (Dextrose 3.375 gm/ Premix) 50 mls @ 100 mls/hr IV Q8H [facility] Last Admin: 01/18/19 18:15 Dose: 100 mls/hr Sodium Chloride (Normal Saline) 500 mls @ 999 mls/hr IV .BOLUS ONE Stop: 01/18/19 20:07 Last Admin: 01/18/19 19:58 Dose: 999 mls/hr Sodium Chloride (Normal Saline) 1,000 mls @ 125 mls/hr IV ASDIRECTED [facility] Insulin Aspart (Novolog) 0 unit SUBCUT TIDMEALS [facility]; Protocol Last Admin: 01/18/19 18:18 Dose: 2 units Insulin Detemir (Levemir) 23 unit SUBCUT DAILY [facility] Last Admin: 01/18/19 09:24 Dose: 23 units Levothyroxine Sodium (Levothyroxine) 75 mcg PO ACBREAKFAST [facility] Last Admin: 01/18/19 08:12 Dose: 75 mcg Loperamide HCl (Imodium) 2 mg PO Q4H PRN PRN Reason: Diarrhea Last Admin: 01/18/19 12:47 Dose: 2 mg Melatonin (Melatonin) 3 mg PO BEDTIME PRN PRN Reason: Insomnia Last Admin: 01/15/19 21:38 Dose: 3 mg Non-Formulary Medication (Docusate Sodium [Docusol]) 1 enema RECTAL DAILY PRN PRN Reason: Constipation Non-Formulary Medication (Insulin Degludec [Tresiba]) 23 unit SQ DAILY [facility] Ondansetron HCl (Zofran Odt) 4 mg PO Q4H PRN PRN Reason: Nausea Piperacillin/Tazobactam/Dextrose (Zosyn In Dextrose Iso-Osmotic 3.375 Gm) 3.375 gm IV Q8H [facility] Last Admin: 01/16/19 02:31 Dose: Not Given Senna/Docusate Sodium (Senna Plus) 2 tab PO BID PRN PRN Reason: Constipation Sodium Chloride (Saline Flush) 10 ml FLUSH Q8HR [facility] Last Admin: 01/15/19 16:45 Dose: Not Given Sodium Chloride (Saline Flush) 10 ml FLUSH Q8H [facility] Last Admin: 01/18/19 18:18 Dose: 10 ml Sodium Chloride (Saline Flush) 10 ml FLUSH Q8H [facility] Last Admin: 01/18/19 18:21 Dose: 10 ml Sodium Chloride (Normal Saline) 10 ml IV Q8H [facility] Last Admin: 01/16/19 02:30 Dose: Not Given Tamsulosin HCl (Flomax) 0.4 mg PO DAILY [facility] Last Admin: 01/18/19 09:22 Dose: 0.4 mg Triamcinolone Acetonide (Triamcinolone Acetonide 0.1% Crm) 0 gm TOP BID [facility] Last Admin: 01/18/19 11:16 Dose: Not Given
== END 2019-01-18 19:55 | disposition critical access hospital (66) | DRG 299 ==
LOC: KA.MS 14:15 → UNDODISIN 01-18 20:00
PROVIDERS: ADMIT Nurse Practitioner Family; ATTEND Family Medicine
PROC: 02HV33Z Insertion of Infusion Device into Superior Vena Cava, Percutaneous Approach (ICD-10-PCS; principal; 2019-01-15)
DX: E11.52 Type 2 diabetes mellitus with diabetic peripheral angiopathy with gangrene (principal); A48.0 Gas gangrene; K92.1 Melena; N18.4 Chronic kidney disease, stage 4 (severe); N17.9 Acute kidney failure, unspecified; I95.9 Hypotension, unspecified; R55 Syncope and collapse; R00.0 Tachycardia, unspecified; Z79.4 Long term (current) use of insulin; Z79.899 Other long term (current) drug therapy; E78.00 Pure hypercholesterolemia, unspecified; N40.0 Benign prostatic hyperplasia without lower urinary tract symptoms; E11.65 Type 2 diabetes mellitus with hyperglycemia; E11.22 Type 2 diabetes mellitus with diabetic chronic kidney disease; I12.9 Hypertensive chronic kidney disease with stage 1 through stage 4 chronic kidney disease, or unspecified chronic kidney disease; M19.91 Primary osteoarthritis, unspecified site; E03.9 Hypothyroidism, unspecified; G31.84 Mild cognitive impairment of uncertain or unknown etiology; E21.3 Hyperparathyroidism, unspecified; E78.5 Hyperlipidemia, unspecified; B95.2 Enterococcus as the cause of diseases classified elsewhere
CPT/HCPCS: 36415; 82962; 83036; 84443; 87070; 87186; 87205; 97110-GP; 97161-GP; 97530-GP; A9270-GY; J1642; J1650; J1815-GY; J2543; J7030; J7050

== ENCOUNTER 2019-01-18 19:55 | Inpatient (IN) | payer MEDICARE, BC ==
[2019-01-18] MEDS ORDERED: Sodium Chloride 0.9% 500 ML IV SCH (20:15)
[2019-01-18] MEDS ORDERED: Sodium Chloride 0.9% 1,000 ML IV SCH (20:15)
[2019-01-18] MEDS ORDERED: Pantoprazole 40 MG Vial IVPUSH ONE (20:48)
[2019-01-18 21:01] LABS: ANION GAP 15.6 mmol/L (5-15); CHLORIDE,CL 100 mmol/L (98-115); SODIUM,NA 137 mmol/L (136-145)
[2019-01-18] MEDS ORDERED: Sodium Chloride 0.9% 250 ML ONE (21:25)
--- NOTE | 2019-01-18 22:36 | PCM.DCSUM1 ---
Discharge Summary - Hospital Course Free Text/Narrative:: Date of admission: 01/18/19 into acute status (previously was in swing bed status since 01/15/19) Date of discharge: 01/18/19 to [facility] Discharge diagnoses: 1. Upper GI bleed 2. Acute anemia 3. Syncope 4. 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 CKD, stage III, with recent superimposed SHAMEKA 6. DMT2, uncontrolled (A1c 9.4 on 01/18/19) 7. Hypothyroidism (TSH 2.2 on 01/18/19) 8. Hyperlipidemia 9. Mild cognitive impairment 10. Deconditioning Consultations: Dr. Low, hospitalist, [facility] Procedures: None Hospital course: Mr. Barriga is 78-year-old man with a history notable for recent gas gangrene related to stepping on a toothpick on 12/21/18, CKD stage III, uncontrolled type 2 diabetes mellitus, and mild cognitive impairment. He underwent incision and debridement of the right foot on 01/09/19 and 01/11/19 at [facility]. Cultures showed pansensitive Enterococcus and he was placed on Zosyn for a planned 4 week course. He was discharged to [facility], in swing bed status,on 01/15/19 for ongoing IV antibiotics through PICC line and physical rehabilitation in the setting of current nonweightbearing status of the right foot. He was progressing with physical therapy and receiving IV antibiotics as well as home medications without difficulty until the evening of 01/18/19. He was noted around 1900 to have 4 dark, loose bowel movements and an episode of syncope in which he was helped to the floor while transferring within his room. He was initially noted to have a blood pressure of less than 70 systolic, which then improved to around 90 systolic. BG was in the 200s, whichwas around his recent baseline. EKG showed frequent PVCs, but no otheracuteabnormalities. Laboratory work-up, including CBC, CMP, and troponin, was notable for a hemoglobin of 7.1 (prior on 01/15/19 was 10.1, and baseline prior to the past couple weeks was 13-14), BUN 79 (prior on 01/15/19 was 25), and Cr 2.64 (prior on 01/15/19 was 2.06). Occult blood testing was positive. Etiology of syncope and acute anemia felt to be upper GI bleed. Inciting factors include recent DVT prophylaxis with enoxaparin 40mg daily up until the day prior to bleeding and possible recent NSAID overuse in the setting of having stepped on the toothpick and not subsequently seeking care until over a week later. He has not been on any antacid medications chronically or during recent hospitalizations. He has no known or documented history of GI bleeding, GI pathology, alcohol abuse, or chronic significant anemia. He was transferred to acute status and given an NS bolus of 500cc, pantoprazole 80 mg IV, and 1 unit packed red blood cells was begun.VS improved to pulse 90- 100 and BP 102/59. Discussed status with family and they agreed to transfer, for which he was accepted by Dr. Low with the hospitalist service at [facility]. - Discharge Data Discharge Date: 01/18/19 Discharge Disposition: DC/Tfer to Acute Hospital 02 Condition: Serious - Patient Instructions Diet: NPO Activity: Bedrest - Discharge Plan *PRESCRIPTION DRUG MONITORING PROGRAM REVIEWED*: Not Applicable *COPY OF PRESCRIPTION DRUG MONITORING REPORT IN PATIENT ZULEMA: Not Applicable Home Medications: Home Meds Levothyroxine 75 mcg PO ACBREAKFAST 02/16/15 [History] Tamsulosin [Flomax] 0.4 mg PO DAILY 02/16/15 [History] atorvaSTATin [Lipitor] 40 mg PO DAILY 02/16/15 [History] Acetaminophen 1,000 mg PO TID 02/08/17 [History] amLODIPine Besylate [Amlodipine Besylate] 5 mg PO DAILY 01/04/19 [History] Acetaminophen [Tylenol Extra Strength] 500 mg PO Q4H PRN 01/15/19 [History] Bisacodyl [Dulcolax] 10 mg RECTAL DAILY PRN 01/15/19 [History] Calcium Carbonate/Vitamin D3 [Calcium Carb 500 MG] 500 mg PO QID PRN 01/15/19 [ History] Insulin Aspart [NovoLOG] See Protocol SQ TID 01/15/19 [History] Melatonin 3 mg PO BEDTIME PRN 01/15/19 [History] Ondansetron [Zofran ODT] 4 mg PO Q4H PRN 01/15/19 [History] Piperacillin/Tazobactam/Dext [Zosyn in Dextrose Iso-Osmotic 3.375 GM] 3.375 gram IV Q8H 01/15/19 [History] Sennosides/Docusate Sodium [Senna Plus Tablet] 2 tab PO BID PRN 01/15/19 [ History] Sodium Chloride 0.9% [Normal Saline] 10 ml IV Q8H 01/15/19 [History] Triamcinolone Acetonide [Triamcinolone Acetonide 0.1% Crm] 1 applic TOP BID [History] Enoxaparin [Lovenox] 30 mg SUBCUT DAILY 01/18/19 [History] Insulin Detemir [Levemir] 23 units SUBCUT DAILY 01/18/19 [History] Loperamide [Imodium] 2 mg PO Q4H PRN 01/18/19 [History] - Discharge Summary/Plan Comment DC Time >30 min.: Yes - General Info Date of Service: 01/18/19 Subjective Update: Mr. Barriga currently denies any complaints aside from being tired. - Patient Data Vitals - Most Recent: Last Vital Signs Temp 37.1 C 01/18/19 22:25 Pulse 98 01/18/19 22:25 Resp 12 01/18/19 22:25 BP 100/54 L 01/18/19 22:25 Pulse Ox 96 01/18/19 22:25 I&O - Last 24 hours: Intake & Output 01/18/19 01/18/19 01/18/19 06:59 14:59 22:59 Intake Total 240 Balance 240 Lab Results - Last 24 hrs: Laboratory Results - last 24 hr 01/18/19 01/18/19 01/18/19 Range/Units 20:15 20:15 20:15 WBC 12.69 H (5.00-10.00) 10^3/uL RBC 2.34 L (4.50-6.00) 10^6/uL Hgb 7.1 L D (13.0-17.0) g/dL Hct 21.5 L (40.0-52.0) % MCV 91.9 D (82.0-92.0) fL MCH 30.3 (27.0-31.0) pg MCHC 33.0 (32.0-36.0) g/dL RDW 13.7 (11.5-14.5) % Plt Count 356 (150-400) 10^3/uL MPV 9.2 (7.4-10.4) fL Immature Gran % (Auto) 1.0 (0.0-5.0) % Neut % (Auto) 75.2 H (50.0-70.0) % Lymph % (Auto) 15.1 L (20.0-40.0) % [place] % (Auto) 6.0 (2.0-8.0) % Eos % (Auto) 1.8 (1.0-3.0) % Baso % (Auto) 0.9 (0.0-1.0) % Immature Gran # (Auto) 0.13 (0.00-0.50) 10^3/uL Neut # (Auto) 9.54 H (2.50-7.00) 10^3/uL Lymph # (Auto) 1.92 (1.00-4.00) 10^3/uL [place] # (Auto) 0.76 (0.10-0.80) 10^3/uL Eos # (Auto) 0.23 (0.10-0.30) 10^3/uL Baso # (Auto) 0.11 H (0.00-0.10) 10^3/uL Sodium 137 (136-145) mmol/L Potassium 3.7 (3.3-5.3) mmol/L Chloride 100 (98-115) mmol/L Carbon Dioxide 25.1 (21.0-32.0) mmol/L Anion Gap 15.6 H (5-15) mmol/L BUN 79 H* D (6-25) mg/dL Creatinine 2.64 H (0.51-1.17) mg/dL Est Cr Clr Drug Dosing TNP Estimated GFR (MDRD) 24 mL/min Glucose 198 H (75 - 99) mg/dL POC Glucose (74-106) mg/dl Calcium 8.9 (8.7-10.3) mg/dL Total Bilirubin 0.3 (0.2-1.0) mg/dL AST 58 H (15-37) U/L ALT 111 H (12-78) U/L Alkaline Phosphatase 85 (46-116) IU/L Troponin I 0.06 (0.00-0.070) ng/mL Total Protein 4.9 L (6.4-8.2) g/dL Albumin 1.88 L (3.00-4.80) g/dL Blood Type O POSITIVE Gel Antibody Screen Negative Crossmatch See Detail 01/18/19 Range/Units 21:40 WBC (5.00-10.00) 10^3/uL RBC (4.50-6.00) 10^6/uL Hgb (13.0-17.0) g/dL Hct (40.0-52.0) % MCV (82.0-92.0) fL MCH (27.0-31.0) pg MCHC (32.0-36.0) g/dL RDW (11.5-14.5) % Plt Count (150-400) 10^3/uL MPV (7.4-10.4) fL Immature Gran % (Auto) (0.0-5.0) % Neut % (Auto) (50.0-70.0) % Lymph % (Auto) (20.0-40.0) % [place] % (Auto) (2.0-8.0) % Eos % (Auto) (1.0-3.0) % Baso % (Auto) (0.0-1.0) % Immature Gran # (Auto) (0.00-0.50) 10^3/uL Neut # (Auto) (2.50-7.00) 10^3/uL Lymph # (Auto) (1.00-4.00) 10^3/uL [place] # (Auto) (0.10-0.80) 10^3/uL Eos # (Auto) (0.10-0.30) 10^3/uL Baso # (Auto) (0.00-0.10) 10^3/uL Sodium (136-145) mmol/L Potassium (3.3-5.3) mmol/L Chloride (98-115) mmol/L Carbon Dioxide (21.0-32.0) mmol/L Anion Gap (5-15) mmol/L BUN (6-25) mg/dL Creatinine (0.51-1.17) mg/dL Est Cr Clr Drug Dosing Estimated GFR (MDRD) mL/min Glucose (75 - 99) mg/dL POC Glucose 224 H (74-106) mg/dl Calcium (8.7-10.3) mg/dL Total Bilirubin (0.2-1.0) mg/dL AST (15-37) U/L ALT (12-78) U/L Alkaline Phosphatase (46-116) IU/L Troponin I (0.00-0.070) ng/mL Total Protein (6.4-8.2) g/dL Albumin (3.00-4.80) g/dL Blood Type Gel Antibody Screen Crossmatch PHILOMENA Results - Last 24 hrs: Microbiology 01/18/19 20:10 Stool Occult Blood (PHILOMENA) - Final Stool / Feces Med Orders - Current: Current Medications Sodium Chloride (Normal Saline) 500 mls @ 999 mls/hr IV .BOLUS KAELYN Sodium Chloride (Normal Saline) 1,000 mls @ 125 mls/hr IV ASDIRECTED KAELYN Last Admin: 01/18/19 21:30 Dose: 125 mls/hr Discontinued Medications Sodium Chloride (Normal Saline) Confirm Administered Dose 250 mls @ as directed .ROUTE .STK-MED ONE Stop: 01/18/19 21:26 Pantoprazole Sodium (Protonix Iv) 80 mg IVPUSH ONETIME ONE Stop: 01/18/19 20:49 Last Admin: 01/18/19 21:29 Dose: 80 mg - Exam Physical Findings Comments:: GENERAL: Pale elderly white male lying in hospital bed in no acute distress. HEENT: Normocephalic, atraumatic. Conjunctiva clear. Nares patent without discharge. Mucous membranes moist, posterior pharynx unremarkable. NECK: Supple, no masses. CV: Borderline tachycardic, regular rhythm, no murmurs, rubs, or gallops. 2+ radial pulses. PULMONARY: Normal effort, clear to auscultation bilaterally, no wheezes, rales, or rhonchi. ABDOMEN: Positive bowel sounds, soft, nontender, nondistended. EXTREMITIES: No edema, cyanosis, or clubbing. MUSCULOSKELETAL: R foot in dressing and wrap. NEUROLOGICAL: No obvious deficits. DERMATOLOGIC: No rashes or suspicious lesions in exposed areas. PSYCHIATRIC: Sleepy, minimally verbally interactive.
[2019-01-18 22:48] VITALS: BP 107/59
--- NOTE | 2019-01-19 12:47 | PCM.HP ---
H&P History of Present Illness - General Date of Service: 01/18/19 Admit Problem/Dx: Admission Diagnosis/Problem Admission Diagnosis/Problem Syncope Source of Information: Patient, Old Records, RN - History of Present Illness Initial Comments - Free Text/Narative: Mr. Barriga was in swing bed status without complaints or difficulty until the evening of 01/18/19 when I was notified by nursing staff that around 1900 he had 4 dark, loose bowel movements and an episode of syncope in which he was helped to the floor while transferring within his room. Staff was helping him ambulate to the bathroom when he was noted to become quite pale and unsteady. They helped him to the floor and he sustained no fall. He was unresponsive to stimuli , but did have a pulse and was breathing spontaneously, and after several seconds became responsive. He was noted to have a blood pressure of less than 70 systolic, was tachycardic in the 120s-130s, and notably pale and weak. BG was in the 200s. - Related Data Allergies/Adverse Reactions: Allergies Allergy/AdvReac Type Severity Reaction Status Date / Time No Known Drug Allergies Allergy Cannot Verified 01/18/19 22:36 Remember Home Medications: Home Meds Levothyroxine 75 mcg PO ACBREAKFAST 02/16/15 [History] Tamsulosin [Flomax] 0.4 mg PO DAILY 02/16/15 [History] atorvaSTATin [Lipitor] 40 mg PO DAILY 02/16/15 [History] Acetaminophen 1,000 mg PO TID 02/08/17 [History] amLODIPine Besylate [Amlodipine Besylate] 5 mg PO DAILY 01/04/19 [History] Acetaminophen [Tylenol Extra Strength] 500 mg PO Q4H PRN 01/15/19 [History] Bisacodyl [Dulcolax] 10 mg RECTAL DAILY PRN 01/15/19 [History] Calcium Carbonate/Vitamin D3 [Calcium Carb 500 MG] 500 mg PO QID PRN 01/15/19 [ History] Insulin Aspart [NovoLOG] See Protocol SQ TID 01/15/19 [History] Melatonin 3 mg PO BEDTIME PRN 01/15/19 [History] Ondansetron [Zofran ODT] 4 mg PO Q4H PRN 01/15/19 [History] Piperacillin/Tazobactam/Dext [Zosyn in Dextrose Iso-Osmotic 3.375 GM] 3.375 gram IV Q8H 01/15/19 [History] Sennosides/Docusate Sodium [Senna Plus Tablet] 2 tab PO BID PRN 01/15/19 [ History] Sodium Chloride 0.9% [Normal Saline] 10 ml IV Q8H 01/15/19 [History] Triamcinolone Acetonide [Triamcinolone Acetonide 0.1% Crm] 1 applic TOP BID [History] Enoxaparin [Lovenox] 30 mg SUBCUT DAILY 01/18/19 [History] Insulin Detemir [Levemir] 23 units SUBCUT DAILY 01/18/19 [History] Loperamide [Imodium] 2 mg PO Q4H PRN 01/18/19 [History] Past Medical History HEENT History: Reports: Cataract, Impaired Vision Cardiovascular History: Reports: High Cholesterol, Hypertension Respiratory History: Reports: None Gastrointestinal History: Reports: None, Other (See Below) Other Gastrointestinal History: GI bleed - current Genitourinary History: Reports: BPH, Other (See Below), Renal Disease, Urinary Incontinence Other Genitourinary History: CKD stage 4 Musculoskeletal History: Reports: Arthritis Neurological History: Reports: None Psychiatric History: Reports: None Endocrine/Metabolic History: Reports: Diabetes, Type II, Hypothyroidism Hematologic History: Reports: None, Anemia, Blood Transfusion(s), Other (See Below) Other Hematologic History: blood transfusion in progress for GI bleed Immunologic History: Reports: None Oncologic (Cancer) History: Reports: None Dermatologic History: Reports: Other (See Below) Other Dermatologic History: I&D to right foot 12/2018 from toothpick - Infectious Disease History Infectious Disease History: Reports: Other (See Below) Other Infectious Disease History: Patient can't remember - Past Surgical History Head Surgeries/Procedures: Reports: None Cardiovascular Surgical History: Reports: None Respiratory Surgical History: Reports: None GI Surgical History: Reports: Colonoscopy Endocrine Surgical History: Reports: None Neurological Surgical History: Reports: None Musculoskeletal Surgical History: Reports: None, Other (See Below) Other Musculoskeletal Surgeries/Procedures:: surgery to R foot - tooth pick piece removed Social & Family History - Family History Family Medical History: Noncontributory - Caffeine Use Caffeine Use: Reports: Coffee, Soda H&P Review of Systems - Review of Systems: Review Of Systems: Unable To Obtain Free Text/Narrative: Patient drowsy. Gastrointestinal: Reports: Black Stool. Denies: Abdominal Pain Exam - Exam Exam: See Below - Vital Signs Vital Signs: Last Vital Signs Temp 37.1 C 01/18/19 22:45 Pulse 93 01/18/19 22:45 Resp 20 01/18/19 22:45 BP 107/59 L 01/18/19 22:45 Pulse Ox 97 01/18/19 22:45 Weight: 65.204 kg - Exam Physical Exam Comments:: GENERAL: Pale elderly white male lying in hospital bed in no acute distress. HEENT: Normocephalic, atraumatic. Conjunctiva clear. Nares patent without discharge. Mucous membranes moist, posterior pharynx unremarkable. NECK: Supple, no masses. CV: Borderline tachycardic, regular rhythm, no murmurs, rubs, or gallops. 2+ radial pulses. PULMONARY: Normal effort, clear to auscultation bilaterally, no wheezes, rales, or rhonchi. ABDOMEN: Positive bowel sounds, soft, nontender, nondistended. EXTREMITIES: No edema, cyanosis, or clubbing. MUSCULOSKELETAL: R foot in dressing and wrap. NEUROLOGICAL: No obvious deficits. DERMATOLOGIC: No rashes or suspicious lesions in exposed areas. PSYCHIATRIC: Sleepy, minimally verbally interactive. - Patient Data Lab Results Last 24 hrs: Laboratory Results - last 24 hr 01/18/19 01/18/19 01/18/19 Range/Units 20:15 20:15 20:15 WBC 12.69 H (5.00-10.00) 10^3/uL RBC 2.34 L (4.50-6.00) 10^6/uL Hgb 7.1 L D (13.0-17.0) g/dL Hct 21.5 L (40.0-52.0) % MCV 91.9 D (82.0-92.0) fL MCH 30.3 (27.0-31.0) pg MCHC 33.0 (32.0-36.0) g/dL RDW 13.7 (11.5-14.5) % Plt Count 356 (150-400) 10^3/uL MPV 9.2 (7.4-10.4) fL Immature Gran % (Auto) 1.0 (0.0-5.0) % Neut % (Auto) 75.2 H (50.0-70.0) % Lymph % (Auto) 15.1 L (20.0-40.0) % [place] % (Auto) 6.0 (2.0-8.0) % Eos % (Auto) 1.8 (1.0-3.0) % Baso % (Auto) 0.9 (0.0-1.0) % Immature Gran # (Auto) 0.13 (0.00-0.50) 10^3/uL Neut # (Auto) 9.54 H (2.50-7.00) 10^3/uL Lymph # (Auto) 1.92 (1.00-4.00) 10^3/uL [place] # (Auto) 0.76 (0.10-0.80) 10^3/uL Eos # (Auto) 0.23 (0.10-0.30) 10^3/uL Baso # (Auto) 0.11 H (0.00-0.10) 10^3/uL Sodium 137 (136-145) mmol/L Potassium 3.7 (3.3-5.3) mmol/L Chloride 100 (98-115) mmol/L Carbon Dioxide 25.1 (21.0-32.0) mmol/L Anion Gap 15.6 H (5-15) mmol/L BUN 79 H* D (6-25) mg/dL Creatinine 2.64 H (0.51-1.17) mg/dL Est Cr Clr Drug Dosing TNP Estimated GFR (MDRD) 24 mL/min Glucose 198 H (75 - 99) mg/dL POC Glucose (74-106) mg/dl Calcium 8.9 (8.7-10.3) mg/dL Total Bilirubin 0.3 (0.2-1.0) mg/dL AST 58 H (15-37) U/L ALT 111 H (12-78) U/L Alkaline Phosphatase 85 (46-116) IU/L Troponin I 0.06 (0.00-0.070) ng/mL Total Protein 4.9 L (6.4-8.2) g/dL Albumin 1.88 L (3.00-4.80) g/dL Blood Type O POSITIVE Gel Antibody Screen Negative Crossmatch See Detail 01/18/19 Range/Units 21:40 WBC (5.00-10.00) 10^3/uL RBC (4.50-6.00) 10^6/uL Hgb (13.0-17.0) g/dL Hct (40.0-52.0) % MCV (82.0-92.0) fL MCH (27.0-31.0) pg MCHC (32.0-36.0) g/dL RDW (11.5-14.5) % Plt Count (150-400) 10^3/uL MPV (7.4-10.4) fL Immature Gran % (Auto) (0.0-5.0) % Neut % (Auto) (50.0-70.0) % Lymph % (Auto) (20.0-40.0) % [place] % (Auto) (2.0-8.0) % Eos % (Auto) (1.0-3.0) % Baso % (Auto) (0.0-1.0) % Immature Gran # (Auto) (0.00-0.50) 10^3/uL Neut # (Auto) (2.50-7.00) 10^3/uL Lymph # (Auto) (1.00-4.00) 10^3/uL [place] # (Auto) (0.10-0.80) 10^3/uL Eos # (Auto) (0.10-0.30) 10^3/uL Baso # (Auto) (0.00-0.10) 10^3/uL Sodium (136-145) mmol/L Potassium (3.3-5.3) mmol/L Chloride (98-115) mmol/L Carbon Dioxide (21.0-32.0) mmol/L Anion Gap (5-15) mmol/L BUN (6-25) mg/dL Creatinine (0.51-1.17) mg/dL Est Cr Clr Drug Dosing Estimated GFR (MDRD) mL/min Glucose (75 - 99) mg/dL POC Glucose 224 H (74-106) mg/dl Calcium (8.7-10.3) mg/dL Total Bilirubin (0.2-1.0) mg/dL AST (15-37) U/L ALT (12-78) U/L Alkaline Phosphatase (46-116) IU/L Troponin I (0.00-0.070) ng/mL Total Protein (6.4-8.2) g/dL Albumin (3.00-4.80) g/dL Blood Type Gel Antibody Screen Crossmatch Result Diagrams: 01/18/19 20:15 01/18/19 20:15 Jerardo Results Last 24 hrs: Microbiology 01/18/19 20:10 Stool Occult Blood (JERARDO) - Final Stool / Feces Problem List Initiated/Reviewed/Updated: Yes Orders Last 24hrs: Active Orders 24 hr Category Date Time Status Patient Status [ADT] Routine ADT 01/18/19 20:00 Ordered Blood Glucose Check, Bedside [RC] QIDACANDBED Care 01/18/19 20:00 Active EKG Documentation Completion [RC] ASDIRECTED Care 01/18/19 20:10 Active Oxygen Therapy [RC] PRN Care 01/18/19 20:00 Active Ready for Discharge [RC] PER UNIT ROUTINE Care 01/18/19 22:30 Active VTE/DVT Education [RC] PER UNIT ROUTINE Care 01/18/19 20:00 Active Verify Patient Consent Obtain [RC] ASDIRECTED Care 01/18/19 20:53 Active Vital Signs [RC] Q4H Care 01/18/19 20:00 Active Transfuse PRBC [Transfuse Red Blood Cells] [COMM] Oth 01/18/19 20:52 Ordered Urgent Transfuse Red Blood Cells [COMM] Urgent Oth 01/18/19 20:52 Ordered Resuscitation Status Routine Resus Stat 01/18/19 20:00 Ordered Assessment/Plan Comment:: HPI: Mr. Barriga is 78-year-old man with a history notable for recent gas gangrene related to stepping on a toothpick on 12/21/18, CKD stage III, uncontrolled type 2 diabetes mellitus, and mild cognitive impairment. He underwent incision and debridement of the right foot on 01/09/19 and 01/11/19 at [facility]. Cultures showed pansensitive Enterococcus and he was placed on Zosyn for a planned 4 week course. He was discharged to [facility], in swing bed status,on 01/15/19 for ongoing IV antibiotics through PICC line and physical rehabilitation in the setting of current nonweightbearing status of the right foot. He was progressing with physical therapy and receiving IV antibiotics as well as home medications without difficulty until the evening of 01/18/19. He was noted around 1900 to have 4 dark, loose bowel movements and an episode of syncope in which he was helped to the floor while transferring within his room. He was noted to have a blood pressure of less than 70 systolic, was tachycardic in the 120s-130s, and notably pale and weak. BG was in the 200s. Due to concern for lower GI bleed, he will be transferred to acute status for work-up and management. Admission diagnoses: 1. Melena 2. Syncope 3. Hypotension and tachycardia 4. 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 CKD, stage III, with recent superimposed SHAMEKA 6. DMT2, uncontrolled (A1c 9.4 on 01/18/19) 7. Hypothyroidism (TSH 2.2 on 01/18/19) 8. Hyperlipidemia 9. Mild cognitive impairment 10. Deconditioning Plan: - VS q30min - Telemetry - EKG - CBC, CMP, troponin, occult stool - Start IV - NS 500cc bolus followed by 150cc/hr - Pending laboratory results, consider PPI, PRBC, and transfer for endoscopic evaluation and management Hospitalization details: # FEN: NS as above. Obtain CMP. NPO. # PPX: No pharmacologic prophylaxis in setting of presumed GI bleeding. # Code status: DNR/DNI. # Emergency contact: John Paul Mak, with whom status was discussed over telephone. # Disposition: Admit to inpatient status. Await results to determine further disposition.
[2019-01-20] MEDS ORDERED: Sodium Chloride 0.9% 250 ML IV SCH
== END 2019-01-18 22:55 | DRG 377 ==
LOC: KA.MS 19:55 → UNDODISIN 22:55
PROVIDERS: ADMIT Family Medicine; ATTEND Family Medicine
PROC: 30233N1 Transfusion of Nonautologous Red Blood Cells into Peripheral Vein, Percutaneous Approach (ICD-10-PCS; principal; 2019-01-18)
DX: K92.1 Melena (principal); A48.0 Gas gangrene; N18.4 Chronic kidney disease, stage 4 (severe); N17.9 Acute kidney failure, unspecified; E11.52 Type 2 diabetes mellitus with diabetic peripheral angiopathy with gangrene; D64.9 Anemia, unspecified; E11.65 Type 2 diabetes mellitus with hyperglycemia; H26.9 Unspecified cataract; Z66 Do not resuscitate; E78.00 Pure hypercholesterolemia, unspecified; I12.9 Hypertensive chronic kidney disease with stage 1 through stage 4 chronic kidney disease, or unspecified chronic kidney disease; E11.22 Type 2 diabetes mellitus with diabetic chronic kidney disease; N40.1 Benign prostatic hyperplasia with lower urinary tract symptoms; N39.498 Other specified urinary incontinence; M19.90 Unspecified osteoarthritis, unspecified site; E03.9 Hypothyroidism, unspecified; G31.84 Mild cognitive impairment of uncertain or unknown etiology; R55 Syncope and collapse; R00.0 Tachycardia, unspecified; I95.9 Hypotension, unspecified; B95.2 Enterococcus as the cause of diseases classified elsewhere; E78.5 Hyperlipidemia, unspecified
CPT/HCPCS: 36415; 36430; 80053; 82272; 82962; 84484; 85025; 86850; 86900; 86901; 86920; 86922; 93005; C9113; J7030; P9016

== ENCOUNTER 2019-01-22 13:48 | Inpatient (IN) | payer MEDICARE, BC ==
[2019-01-22] MEDS ORDERED: Insulin Aspart 100 Units/ML 3 ML Pen SUBCUT ONE (20:51)
[2019-01-22] MEDS ORDERED: Ondansetron 4 MG Tab.DIS PO PRN (20:52)
[2019-01-22] MEDS ORDERED: Acetaminophen 500 MG Tab PO PRN (20:52)
[2019-01-22] MEDS ORDERED: Bisacodyl 10 MG Supp RECTAL PRN (20:52)
[2019-01-22] MEDS ORDERED: Melatonin 3 MG Tab PO PRN (20:52)
[2019-01-22] MEDS ORDERED: DEXTROSE IV SCH (21:00)
[2019-01-22] MEDS ORDERED: PIPERACILLIN IV SCH (21:00)
[2019-01-22] MEDS ORDERED: TAZOBACTAM IV SCH (21:00)
[2019-01-22] MEDS ORDERED: Calcium Carbonate 500 MG Tab.Chew PO PRN (21:15)
[2019-01-22] MEDS: Triamcinolone Acetonide 0.1% Crm 15 GM Tube TOP SCH (21:15)
[2019-01-22] MEDS ORDERED: Piperacillin/Tazobactam 3.375 GM in Sodium Chloride 0.9% 50 ML IV SCH (22:00)
[2019-01-22] MEDS ORDERED: Sodium Chloride 0.9% 100 ML IV PRN ×2 (22:00→22:08)
[2019-01-22] MEDS: Sodium Chloride 0.9% 10 ML Syringe FLUSH PRN ×2 (22:07→23:06)
[2019-01-22] MEDS: Piperacillin/Tazobactam/Dext 50 ML IV SCH (22:07)
[2019-01-23] MEDS: Piperacillin/Tazobactam/Dext 50 ML IV SCH ×3 (05:57→21:46)
[2019-01-23] MEDS: Sodium Chloride 0.9% 10 ML Syringe FLUSH PRN (06:03)
[2019-01-23] MEDS: Pantoprazole 40 MG Tab.CR PO SCH ×2 (06:45→17:25)
[2019-01-23] MEDS: Levothyroxine 75 MCG Tab PO SCH (06:45)
[2019-01-23] MEDS: Insulin Aspart 100 Units/ML 3 ML Pen SUBCUT SCH ×3 (07:56→18:11)
--- NOTE | 2019-01-23 08:50 | PCM.HP ---
H&P History of Present Illness - General Date of Service: 01/23/19 Admit Problem/Dx: Admission Diagnosis/Problem Admission Diagnosis/Problem GI bleed not requiring more than 4 units of blood in 24 hours, ICU, or surgery Source of Information: Patient, Old Records - Related Data Allergies/Adverse Reactions: Allergies Allergy/AdvReac Type Severity Reaction Status Date / Time No Known Drug Allergies Allergy Cannot Verified 01/22/19 19:34 Remember Home Medications: Home Meds Levothyroxine 75 mcg PO ACBREAKFAST 02/16/15 [History] Tamsulosin [Flomax] 0.4 mg PO DAILY 02/16/15 [History] atorvaSTATin [Lipitor] 40 mg PO DAILY 02/16/15 [History] amLODIPine Besylate [Amlodipine Besylate] 5 mg PO DAILY 01/04/19 [History] Acetaminophen [Tylenol Extra Strength] 500 mg PO Q4H PRN 01/15/19 [History] Bisacodyl [Dulcolax] 10 mg RECTAL DAILY PRN 01/15/19 [History] Calcium Carbonate/Vitamin D3 [Calcium Carb 500 MG] 500 mg PO QID PRN 01/15/19 [ History] Insulin Aspart [NovoLOG] See Protocol SQ TID 01/15/19 [History] Melatonin 3 mg PO BEDTIME PRN 01/15/19 [History] Ondansetron [Zofran ODT] 4 mg PO Q4H PRN 01/15/19 [History] Piperacillin/Tazobactam/Dext [Zosyn in Dextrose Iso-Osmotic 3.375 GM] 3.375 gram IV Q8H 01/15/19 [History] Sennosides/Docusate Sodium [Senna Plus Tablet] 2 tab PO BID PRN 01/15/19 [ History] Sodium Chloride 0.9% [Normal Saline] 10 ml IV Q8H 01/15/19 [History] Triamcinolone Acetonide [Triamcinolone Acetonide 0.1% Crm] 1 applic TOP BID [History] Heparin Sodium,Porcine/PF [Heparin 1,000 Unit/10 (100/ml)] 300 units IV ASDIRECTED 01/22/19 [History] Insulin Degludec [Tresiba] 23 units SUBCUT DAILY 01/22/19 [History] Pantoprazole [ProTONIX] 40 mg PO BIDAC 01/22/19 [History] Past Medical History HEENT History: Reports: Cataract, Impaired Vision Cardiovascular History: Reports: High Cholesterol, Hypertension Respiratory History: Reports: None Gastrointestinal History: Reports: None, Other (See Below) Other Gastrointestinal History: GI bleed, duodenal ulcer Genitourinary History: Reports: BPH, Other (See Below), Renal Disease, Urinary Incontinence Other Genitourinary History: CKD stage 4 Musculoskeletal History: Reports: Arthritis Neurological History: Reports: None Psychiatric History: Reports: None Endocrine/Metabolic History: Reports: Diabetes, Type II, Hypothyroidism Hematologic History: Reports: None, Anemia, Blood Transfusion(s), Other (See Below) Other Hematologic History: blood transfusion in progress for GI bleed Immunologic History: Reports: None Oncologic (Cancer) History: Reports: None Dermatologic History: Reports: Other (See Below) Other Dermatologic History: I&D to right foot 12/2018 from toothpick - Infectious Disease History Infectious Disease History: Reports: Other (See Below) Other Infectious Disease History: Patient can't remember - Past Surgical History Head Surgeries/Procedures: Reports: None Cardiovascular Surgical History: Reports: None Respiratory Surgical History: Reports: None GI Surgical History: Reports: Colonoscopy Endocrine Surgical History: Reports: None Neurological Surgical History: Reports: None Musculoskeletal Surgical History: Reports: None, Other (See Below) Other Musculoskeletal Surgeries/Procedures:: surgery to R foot - tooth pick piece removed Social & Family History - Family History Family Medical History: Noncontributory - Tobacco Use Smoking Status *Q: Never Smoker Second Hand Smoke Exposure: No - Caffeine Use Caffeine Use: Reports: None - Recreational Drug Use Recreational Drug Use: No H&P Review of Systems - Review of Systems: Review Of Systems: See Below General: Denies: Fever, Chills, Malaise, Night Sweats, Diaphoresis HEENT: Reports: No Symptoms Pulmonary: Reports: No Symptoms Cardiovascular: Reports: No Symptoms Gastrointestinal: Denies: Abdominal Pain, Bloody Stool, Constipation, Diarrhea, Decreased Appetite, Difficulty Swallowing, Melena (stools turning brown ), Nausea, Vomiting Genitourinary: Reports: Hematuria Musculoskeletal: Reports: Foot Pain Skin: Reports: No Symptoms Psychiatric: Reports: No Symptoms Neurological: Reports: No Symptoms Hematologic/Lymphatic: Reports: Anemia Immunologic: Reports: No Symptoms Exam - Exam Exam: See Below - Vital Signs Vital Signs: Last Vital Signs Temp 99.3 F 01/22/19 21:59 Pulse 86 01/22/19 21:59 Resp 18 01/22/19 21:59 BP 101/58 L 01/22/19 21:59 Pulse Ox 98 01/22/19 21:59 Weight: 140 lb 6 oz - Exam Quality Assessment: No: Supplemental Oxygen General: Alert, Oriented, 4 Neck: Supple, Trachea Midline, 2 Lungs: Clear to Auscultation, Normal Respiratory Effort Cardiovascular: Regular Rate GI/Abdominal Exam: Normal Bowel Sounds, Soft, Non-Tender, No Organomegaly, No Distention, No Abnormal Bruit, No Mass, Pelvis Stable Neurological: Cranial Nerves Intact, Reflexes Equal Bilateral Neuro Extensive - Mental Status: Alert, Oriented x3, Normal Mood/Affect, Normal Cognition Neuro Extensive - Motor, Sensory, Reflexes: CN II-XII Intact, Normal Gait, Normal Reflexes Psychiatric: Alert, Normal Affect, Normal Mood - Patient Data Lab Results Last 24 hrs: Laboratory Results - last 24 hr 01/22/19 01/23/19 Range/Units 20:45 07:17 POC Glucose 322 H 135 H (74-106) mg/dl Problem List Initiated/Reviewed/Updated: Yes Orders Last 24hrs: Active Orders 24 hr Category Date Time Status Patient Status [ADT] Routine ADT 01/22/19 18:00 Ordered Blood Glucose Check, Bedside [RC] TIDMEALS Care 01/22/19 21:17 Active Communication Order [RC] DAILY Care 01/23/19 09:00 Active Communication Order [RC] DAILY Care 01/23/19 09:00 Active Communication Order [RC] DAILY Care 01/23/19 09:00 Active Communication Order [RC] DAILY Care 01/23/19 09:00 Active Height and Weight [RC] Tu@0700 Care 01/22/19 21:23 Active Intake and Output [RC] 1400,2200,0600 Care 01/22/19 21:17 Active Up With Assistance [RC] QSHIFT Care 01/22/19 21:17 Active Vital Signs [RC] BID Care 01/22/19 21:17 Active PT Evaluation and Treatment [CONS] Routine Cons 01/23/19 09:00 Active [employer] Diet [DIET] Diet 01/23/19 Breakfast Active Acetaminophen [Tylenol Extra Strength] Med 01/22/19 20:52 Active 500 mg PO Q4H PRN Bisacodyl [Dulcolax] Med 01/22/19 20:52 Active 10 mg RECTAL DAILY PRN Calcium Carbonate [Tums] Med 01/22/19 21:15 Active 500 mg PO QID PRN Docusate Sodium/Sennosides [Senna Plus] Med 01/22/19 20:52 Active 2 tab PO BID PRN Insulin Aspart [NovoLOG] Med 01/23/19 08:00 Active See Protocol SUBCUT TIDMEALS Insulin Degludec [Tresiba] Med 01/23/19 09:00 Pending 23 units SUBCUT DAILY Levothyroxine Med 01/23/19 07:30 Active 75 mcg PO ACBREAKFAST Melatonin Med 01/22/19 20:52 Active 3 mg PO BEDTIME PRN Ondansetron [Zofran ODT] Med 01/22/19 20:52 Active 4 mg PO Q4H PRN Pantoprazole [ProTONIX] Med 01/23/19 07:30 Active 40 mg PO BIDAC Piperacillin/Tazobactam/Dext [Zosyn in Dextrose Iso- Med 01/22/19 22:00 Active Osmotic 3.375 GM] 50 ml IV Q8H Sodium Chloride 0.9% [Normal Saline] 100 ml Med 01/22/19 22:08 Active IV 2200 Sodium Chloride 0.9% [Saline Flush] Med 01/22/19 21:39 Active 10 ml FLUSH ASDIRECTED PRN Tamsulosin [Flomax] Med 01/23/19 09:00 Active 0.4 mg PO DAILY Triamcinolone Acetonide [Triamcinolone Acetonide 0.1% Med 01/22/19 21:00 Active Crm] 0 gm TOP BID amLODIPine [Norvasc] Med 01/23/19 09:00 Active 5 mg PO DAILY atorvaSTATin [Lipitor] Med 01/23/19 09:00 Active 40 mg PO DAILY Resuscitation Status Routine Resus Stat 01/22/19 21:17 Ordered Medication Orders Acetaminophen (Tylenol Extra Strength) 500 mg PO Q4H PRN PRN Reason: Pain Amlodipine Besylate (Norvasc) 5 mg PO DAILY KAELYN Atorvastatin Calcium (Lipitor) 40 mg PO DAILY KAELYN Bisacodyl (Dulcolax) 10 mg RECTAL DAILY PRN PRN Reason: Constipation Calcium Carbonate/Glycine (Tums) 500 mg PO QID PRN PRN Reason: INDIGESTION Piperacillin/Tazobactam/Dextrose (Zosyn In Dextrose Iso-Osmotic 3.375 Gm) 50 mls @ 100 mls/hr IV Q8H [facility] Last Admin: 01/23/19 05:57 Dose: 100 mls/hr Infusion: 01/22/19 22:37 Dose: 100 mls/hr Admin: 01/22/19 22:07 Dose: 100 mls/hr Sodium Chloride (Normal Saline) 100 mls @ 100 mls/hr IV 2200 PRN PRN Reason: FLUSH Last Admin: 01/22/19 22:12 Dose: 100 mls/hr Insulin Aspart (Novolog) 0 unit SUBCUT TIDMEALS [facility]; Protocol Last Admin: 01/23/19 07:56 Dose: Not Given Levothyroxine Sodium (Levothyroxine) 75 mcg PO ACBREAKFAST [facility] Last Admin: 01/23/19 06:45 Dose: 75 mcg Melatonin (Melatonin) 3 mg PO BEDTIME PRN PRN Reason: Insomnia Non-Formulary Medication (Insulin Degludec [Tresiba]) 23 units SUBCUT DAILY [facility] Ondansetron HCl (Zofran Odt) 4 mg PO Q4H PRN PRN Reason: Nausea Pantoprazole Sodium (Protonix) 40 mg PO BIDAC [facility] Last Admin: 01/23/19 06:45 Dose: 40 mg Senna/Docusate Sodium (Senna Plus) 2 tab PO BID PRN PRN Reason: Constipation Sodium Chloride (Saline Flush) 10 ml FLUSH ASDIRECTED PRN PRN Reason: Other Last Admin: 01/23/19 06:03 Dose: 10 ml Admin: 01/22/19 23:06 Dose: 10 ml Admin: 01/22/19 22:07 Dose: 10 ml Tamsulosin HCl (Flomax) 0.4 mg PO DAILY [facility] Triamcinolone Acetonide (Triamcinolone Acetonide 0.1% Crm) 0 gm TOP BID [facility] Last Admin: 01/22/19 21:15 Dose: 1 applic Assessment/Plan Comment:: History of present illness 78-year-old male returns back to [facility] swing bed shelter status from. He was in swing bed status here at [place]'s evening IV antibiotics for a diabetic foot infection when he started having decrease hemoglobin, melena , loose bowel movements with an episode of syncope necessitating transfer to tertiary Care [facility] due to GI bleed. While in [place] he did undergo EGD revealed LA grade reflux esophagitis, normal esophagus, 3 cm hernia and multiple nonbleeding duodenal ulcers--highly suggested add the bleeding source. He received blood transfusion, and he was continued on high-dose PPI. Hemoglobin was monitored frequently. He did have a few episodes of black stool but subsequently was getting better upon discharge. Patient will discharge on swing bed and will continue antibiotic for recent diabetic foot infection. Primary problems S/P incision and drainage DOS January 09 and 01/11, continue with PICC line and antibiotics. PICC line placed on 01/15. Upper GI bleed, status post EGD, Grade D reflux esophagitis Nonbleeding duodenal ulcers, multiple Chronic, stable problems Hyperparathyroidism d/t CKD ,Calcitriol, monitor creatinine CKD/SHAMEKA stage III, T2DM, uncontrolled (A1c 9.4 on 01/18/19) Tresiba 23 units in the morning, or lantus HTN amlodipine HLD BPH, Hypothyroidism, TSH 2.2 on 01/18/19 Cognitive impairment, mild. CODE STATUS, DNR DVT prophylaxis, not indicated, recent GI bleeding, low risk, NARINDER stockings Activity, NWB right foot except on heel when walking boot Disposition, placed back and shelter for IV antibiotics due to foot infection. Monitor hemoglobin, continue high-dose PPI Follow-up 3 month post discharge with nephrology for management of hyperparathyroidism and CKD podiatry on January 21 at [facility] Infectious disease, 4 weeks post discharge--appointment made EGD surveillance, [place], 8 weeks post discharge
[2019-01-23] MEDS: Tamsulosin 0.4 MG Cap.ER PO SCH (08:52)
[2019-01-23] MEDS: amLODIPine 5 MG Tab PO SCH (08:52)
[2019-01-23] MEDS: Triamcinolone Acetonide 0.1% Crm 15 GM Tube TOP SCH ×2 (08:52→21:46)
[2019-01-23] MEDS: atorvaSTATin 40 MG Tab PO SCH (08:52)
[2019-01-23] MEDS: Insulin Detemir 100 Units/ML 3 ML Pen SUBCUT SCH (12:16)
[2019-01-24] MEDS: Piperacillin/Tazobactam/Dext 50 ML IV SCH ×3 (06:03→21:30)
[2019-01-24] MEDS: Levothyroxine 75 MCG Tab PO SCH (07:56)
[2019-01-24] MEDS: Pantoprazole 40 MG Tab.CR PO SCH ×2 (07:56→17:29)
[2019-01-24] MEDS: Insulin Detemir 100 Units/ML 3 ML Pen SUBCUT SCH (08:51)
[2019-01-24] MEDS: Insulin Aspart 100 Units/ML 3 ML Pen SUBCUT SCH ×3 (08:51→17:30)
[2019-01-24] MEDS: atorvaSTATin 40 MG Tab PO SCH (08:52)
[2019-01-24] MEDS: Tamsulosin 0.4 MG Cap.ER PO SCH (08:52)
[2019-01-24] MEDS: amLODIPine 5 MG Tab PO SCH (08:52)
[2019-01-24] MEDS: Triamcinolone Acetonide 0.1% Crm 15 GM Tube TOP SCH ×2 (08:52→21:35)
[2019-01-24] MEDS: Sodium Chloride 0.9% 10 ML Syringe FLUSH PRN (21:30)
[2019-01-25] MEDS: Levothyroxine 75 MCG Tab PO SCH (06:42)
[2019-01-25] MEDS: Piperacillin/Tazobactam/Dext 50 ML IV SCH ×3 (06:42→21:33)
[2019-01-25] MEDS: Pantoprazole 40 MG Tab.CR PO SCH ×2 (06:42→17:31)
[2019-01-25] MEDS: Insulin Aspart 100 Units/ML 3 ML Pen SUBCUT SCH ×3 (07:29→17:57)
[2019-01-25] MEDS: Sodium Chloride 0.9% 10 ML Syringe FLUSH PRN ×3 (07:45→14:49)
[2019-01-25] MEDS: Insulin Detemir 100 Units/ML 3 ML Pen SUBCUT SCH (09:21)
[2019-01-25] MEDS: Tamsulosin 0.4 MG Cap.ER PO SCH (09:21)
[2019-01-25] MEDS: atorvaSTATin 40 MG Tab PO SCH (09:21)
[2019-01-25] MEDS ORDERED: Loperamide 2 MG Cap PO PRN (10:12)
[2019-01-25] MEDS: Triamcinolone Acetonide 0.1% Crm 15 GM Tube TOP SCH ×2 (13:54→21:03)
[2019-01-25] MEDS: Sodium Chloride 0.9% 100 ML IV SCH (21:43)
[2019-01-26] MEDS: Sodium Chloride 0.9% 10 ML Syringe FLUSH PRN ×3 (05:43→14:16)
[2019-01-26] MEDS: Piperacillin/Tazobactam/Dext 50 ML IV SCH ×3 (05:44→22:58)
[2019-01-26] MEDS: Levothyroxine 75 MCG Tab PO SCH (07:41)
[2019-01-26] MEDS: Pantoprazole 40 MG Tab.CR PO SCH ×2 (07:41→17:02)
[2019-01-26] MEDS: Insulin Aspart 100 Units/ML 3 ML Pen SUBCUT SCH ×3 (07:41→17:08)
[2019-01-26] MEDS: atorvaSTATin 40 MG Tab PO SCH (09:44)
[2019-01-26] MEDS: Tamsulosin 0.4 MG Cap.ER PO SCH (09:44)
[2019-01-26] MEDS: Insulin Detemir 100 Units/ML 3 ML Pen SUBCUT SCH (09:45)
[2019-01-26] MEDS: Triamcinolone Acetonide 0.1% Crm 15 GM Tube TOP SCH ×2 (09:46→20:49)
[2019-01-26] MEDS: Sodium Chloride 0.9% 100 ML IV SCH (22:58)
[2019-01-27] MEDS: Piperacillin/Tazobactam/Dext 50 ML IV SCH ×3 (06:39→22:30)
[2019-01-27] MEDS: Sodium Chloride 0.9% 10 ML Syringe FLUSH PRN ×4 (06:42→14:28)
[2019-01-27] MEDS: Pantoprazole 40 MG Tab.CR PO SCH ×2 (07:46→17:29)
[2019-01-27] MEDS: Levothyroxine 75 MCG Tab PO SCH (07:46)
[2019-01-27] MEDS: Insulin Aspart 100 Units/ML 3 ML Pen SUBCUT SCH ×3 (07:57→18:07)
[2019-01-27] MEDS: Tamsulosin 0.4 MG Cap.ER PO SCH (09:29)
[2019-01-27] MEDS: atorvaSTATin 40 MG Tab PO SCH (09:29)
[2019-01-27] MEDS: Insulin Detemir 100 Units/ML 3 ML Pen SUBCUT SCH (09:30)
[2019-01-27] MEDS: Triamcinolone Acetonide 0.1% Crm 15 GM Tube TOP SCH ×2 (09:30→20:23)
[2019-01-27] MEDS: Sodium Chloride 0.9% 100 ML IV SCH (22:30)
[2019-01-27] MEDS: Sodium Chloride 0.9% 100 ML ONE (23:10)
[2019-01-28] MEDS: Piperacillin/Tazobactam/Dext 50 ML IV SCH ×3 (05:30→22:12)
[2019-01-28] MEDS: Levothyroxine 75 MCG Tab PO SCH (07:46)
[2019-01-28] MEDS: Pantoprazole 40 MG Tab.CR PO SCH ×2 (07:46→18:10)
[2019-01-28] MEDS: Insulin Aspart 100 Units/ML 3 ML Pen SUBCUT SCH ×3 (07:48→18:10)
[2019-01-28 08:04] LABS: ANION GAP 16.7 mmol/L (5-15)
[2019-01-28] MEDS: amLODIPine 5 MG Tab PO SCH (10:03)
[2019-01-28] MEDS: atorvaSTATin 40 MG Tab PO SCH (10:03)
[2019-01-28] MEDS: Tamsulosin 0.4 MG Cap.ER PO SCH (10:04)
[2019-01-28] MEDS: Triamcinolone Acetonide 0.1% Crm 15 GM Tube TOP SCH ×2 (10:04→22:17)
[2019-01-28] MEDS: Insulin Detemir 100 Units/ML 3 ML Pen SUBCUT SCH (10:05)
[2019-01-28] MEDS: Sodium Chloride 0.9% 100 ML ONE (13:50)
[2019-01-28] MEDS: Sodium Chloride 0.9% 100 ML IV SCH (22:13)
[2019-01-29] MEDS: Piperacillin/Tazobactam/Dext 50 ML IV SCH ×2 (05:45→18:29)
[2019-01-29] MEDS: Pantoprazole 40 MG Tab.CR PO SCH ×2 (07:59→18:25)
[2019-01-29] MEDS: Levothyroxine 75 MCG Tab PO SCH (07:59)
[2019-01-29] MEDS: Insulin Aspart 100 Units/ML 3 ML Pen SUBCUT SCH ×3 (09:11→18:26)
[2019-01-29] MEDS: Tamsulosin 0.4 MG Cap.ER PO SCH (09:24)
[2019-01-29] MEDS: atorvaSTATin 40 MG Tab PO SCH (09:24)
[2019-01-29] MEDS: amLODIPine 5 MG Tab PO SCH (09:25)
[2019-01-29] MEDS: Triamcinolone Acetonide 0.1% Crm 15 GM Tube TOP SCH ×3 (09:25→20:08)
[2019-01-29] MEDS: Insulin Detemir 100 Units/ML 3 ML Pen SUBCUT SCH (09:26)
[2019-01-30] MEDS ORDERED: Sodium Chloride 0.9% 100 ML ONE (00:45)
[2019-01-30] MEDS: Sodium Chloride 0.9% 100 ML IV SCH (00:51)
[2019-01-30] MEDS: Piperacillin/Tazobactam/Dext 50 ML IV SCH ×4 (00:51→23:56)
[2019-01-30] MEDS: Sodium Chloride 0.9% 10 ML Syringe FLUSH PRN ×5 (00:52→23:54)
[2019-01-30] MEDS: Levothyroxine 75 MCG Tab PO SCH (07:51)
[2019-01-30] MEDS: Pantoprazole 40 MG Tab.CR PO SCH ×2 (07:51→17:36)
[2019-01-30] MEDS: Insulin Aspart 100 Units/ML 3 ML Pen SUBCUT SCH ×3 (09:02→17:42)
[2019-01-30] MEDS: Tamsulosin 0.4 MG Cap.ER PO SCH (09:27)
[2019-01-30] MEDS: amLODIPine 5 MG Tab PO SCH (09:27)
[2019-01-30] MEDS: atorvaSTATin 40 MG Tab PO SCH (09:28)
[2019-01-30] MEDS: Triamcinolone Acetonide 0.1% Crm 15 GM Tube TOP SCH ×2 (09:29→20:56)
[2019-01-30] MEDS: Insulin Detemir 100 Units/ML 3 ML Pen SUBCUT SCH (09:30)
[2019-01-31] MEDS ORDERED: Sodium Chloride 0.9% 100 ML ONE (00:01)
[2019-01-31] MEDS: Sodium Chloride 0.9% 100 ML IV SCH (00:04)
[2019-01-31] MEDS: Pantoprazole 40 MG Tab.CR PO SCH ×2 (07:43→17:58)
[2019-01-31] MEDS: Levothyroxine 75 MCG Tab PO SCH (07:43)
[2019-01-31] MEDS: Insulin Aspart 100 Units/ML 3 ML Pen SUBCUT SCH ×3 (08:30→17:58)
[2019-01-31] MEDS: Piperacillin/Tazobactam/Dext 50 ML IV SCH ×2 (08:49→16:38)
[2019-01-31] MEDS: atorvaSTATin 40 MG Tab PO SCH (08:49)
[2019-01-31] MEDS: Triamcinolone Acetonide 0.1% Crm 15 GM Tube TOP SCH ×2 (08:49→23:14)
[2019-01-31] MEDS: Insulin Detemir 100 Units/ML 3 ML Pen SUBCUT SCH (08:50)
[2019-01-31] MEDS: Tamsulosin 0.4 MG Cap.ER PO SCH (08:50)
[2019-01-31] MEDS: amLODIPine 5 MG Tab PO SCH (08:51)
--- NOTE | 2019-01-31 09:44 | PCM.PN ---
- General Info Date of Service: 01/31/19 Functional Status: Reports: Pain Controlled. Denies: Ambulating - Review of Systems General: Denies: Fever, Weakness, Fatigue, Malaise, Chills HEENT: Reports: No Symptoms Pulmonary: Reports: No Symptoms Cardiovascular: Reports: No Symptoms Gastrointestinal: Reports: Diarrhea (He contributes diarrhea to statin therapy) Genitourinary: Reports: No Symptoms Musculoskeletal: Denies: Foot Pain Skin: Reports: Other (Ongoing wound) Neurological: Reports: Difficulty Walking Psychiatric: Reports: No Symptoms - Patient Data Vitals - Most Recent: Last Vital Signs Temp 99.5 F 01/31/19 06:57 Pulse 65 01/31/19 06:57 Resp 16 01/31/19 06:57 BP 106/63 01/31/19 08:51 Pulse Ox 94 L 01/31/19 06:57 Weight - Most Recent: 140 lb 6.4 oz I&O - Last 24 Hours: Intake & Output 01/30/19 01/31/19 01/31/19 22:59 06:59 14:59 Intake Total 675 175 Output Total 300 800 Balance 375 -625 Lab Results Last 24 Hours: Laboratory Results - last 24 hr 01/30/19 01/30/19 01/30/19 Range/Units 11:25 12:02 17:41 POC Glucose 254 H 115 H (74-106) mg/dl C-Reactive Protein 5.3 H (0.0-0.9) mg/dL 01/31/19 Range/Units 07:41 POC Glucose 76 (74-106) mg/dl C-Reactive Protein (0.0-0.9) mg/dL Med Orders - Current: Current Medications Acetaminophen (Tylenol Extra Strength) 500 mg PO Q4H PRN PRN Reason: Pain Amlodipine Besylate (Norvasc) 5 mg PO DAILY [facility] Last Admin: 01/31/19 08:51 Dose: Not Given Atorvastatin Calcium (Lipitor) 40 mg PO DAILY [facility] Last Admin: 01/31/19 08:49 Dose: 40 mg Bisacodyl (Dulcolax) 10 mg RECTAL DAILY PRN PRN Reason: Constipation Calcium Carbonate/Glycine (Tums) 500 mg PO QID PRN PRN Reason: INDIGESTION Piperacillin/Tazobactam/Dextrose (Zosyn In Dextrose Iso-Osmotic 3.375 Gm) 50 mls @ 100 mls/hr IV Q8H [facility] Last Admin: 01/31/19 08:49 Dose: 100 mls/hr Sodium Chloride (Normal Saline) 100 mls @ 100 mls/hr IV 0030 [facility] Last Admin: 01/31/19 00:04 Dose: 100 mls/hr Insulin Aspart (Novolog) 0 unit SUBCUT TIDMEALS [facility]; Protocol Last Admin: 01/31/19 08:30 Dose: Not Given Insulin Detemir (Levemir) 23 unit SUBCUT DAILY [facility] Last Admin: 01/31/19 08:50 Dose: 23 units Levothyroxine Sodium (Levothyroxine) 75 mcg PO ACBREAKFAST [facility] Last Admin: 01/31/19 07:43 Dose: 75 mcg Loperamide HCl (Imodium) 2 mg PO Q4H PRN PRN Reason: Diarrhea Melatonin (Melatonin) 3 mg PO BEDTIME PRN PRN Reason: Insomnia Ondansetron HCl (Zofran Odt) 4 mg PO Q4H PRN PRN Reason: Nausea Pantoprazole Sodium (Protonix) 40 mg PO BIDAC [facility] Last Admin: 01/31/19 07:43 Dose: 40 mg Senna/Docusate Sodium (Senna Plus) 2 tab PO BID PRN PRN Reason: Constipation Sodium Chloride (Saline Flush) 10 ml FLUSH ASDIRECTED PRN PRN Reason: Other Last Admin: 01/30/19 23:54 Dose: 10 ml Tamsulosin HCl (Flomax) 0.4 mg PO DAILY [facility] Last Admin: 01/31/19 08:50 Dose: 0.4 mg Triamcinolone Acetonide (Triamcinolone Acetonide 0.1% Crm) 0 gm TOP BID [facility] Last Admin: 01/31/19 08:49 Dose: 1 applic Discontinued Medications Piperacillin Sod/Tazobactam (Sod 3.375 gm/ Sodium Chloride) 50 mls @ 100 mls/ hr IV Q8H [facility] Last Admin: 01/22/19 22:05 Dose: Not Given Sodium Chloride (Normal Saline) 100 mls @ 100 mls/hr IV ASDIRECTED PRN PRN Reason: FLUSH Piperacillin/Tazobactam/Dextrose (Zosyn In Dextrose Iso-Osmotic 3.375 Gm) 50 mls @ 100 mls/hr IV Q8H [facility] Last Admin: 01/29/19 18:29 Dose: 100 mls/hr Sodium Chloride (Normal Saline) 100 mls @ 100 mls/hr IV 2200 PRN PRN Reason: FLUSH Last Admin: 01/22/19 22:12 Dose: 100 mls/hr Sodium Chloride (Normal Saline) 100 mls @ 100 mls/hr IV 2200 [facility] Last Admin: 01/28/19 22:13 Dose: 100 mls/hr Sodium Chloride (Normal Saline) Confirm Administered Dose 100 mls @ as directed .ROUTE .STK-MED ONE Stop: 01/27/19 22:57 Last Admin: 01/28/19 13:50 Dose: 100 mls/hr Sodium Chloride (Normal Saline) Confirm Administered Dose 100 mls @ as directed .ROUTE .STK-MED ONE Stop: 01/30/19 00:46 Last Admin: 01/30/19 03:14 Dose: Not Given Sodium Chloride (Normal Saline) Confirm Administered Dose 100 mls @ as directed .ROUTE .STK-MED ONE Stop: 01/31/19 00:02 Last Admin: 01/31/19 02:23 Dose: Not Given Insulin Aspart (Novolog) 5 unit SUBCUT ONETIME ONE Stop: 01/22/19 20:52 Last Admin: 01/22/19 21:15 Dose: 5 unit - Exam Quality Assessment: No: Supplemental Oxygen General: Alert, Oriented HEENT: Pupils Equal, Pupils Reactive, EOMI, Mucous Membr. Moist/[place] Neck: Supple Lungs: Clear to Auscultation, Normal Respiratory Effort Cardiovascular: Regular Rate, Regular Rhythm GI/Abdominal Exam: Normal Bowel Sounds, Soft, No Distention (Male) Exam: Deferred Back Exam: No: CVA Tenderness (L), CVA Tenderness (R) Extremities: No: Leg Pain, Increased Warmth Peripheral Pulses: 1+: Popliteal (R), 2+: Popliteal (L), Dorsalis Pedis (L), Dorsalis Pedis (R) Skin: Other (Wound assessment today; Incision is approximately about 90% well healed plantarly. Mild serous drainage on packing today No purulence, no foul odor. Probes down 2 cm. No bone exposed. No edema, No sx/signs of infection. No pain.) Wound/Incisions: Healing Well, No Drainage, Other (Wet-to-dry dressing) Psy/Mental Status: Alert, Normal Affect, Normal Mood - Problem List Review Problem List Initiated/Reviewed/Updated: Yes - My Orders Last 24 Hours: My Active Orders 02/04/19 06:00 BASIC METABOLIC PANEL,BMP [CHEM] Routine C-REACTIVE PROTEIN [CHEM] Routine CBC WITH AUTO DIFF [HEME] Routine - Plan Plan:: History of present illness 78-year-old male returns back to [facility] swing bed long term status from. He was in swing bed status here at [place]'s evening IV antibiotics for a diabetic foot infection when he started having decrease hemoglobin, melena , loose bowel movements with an episode of syncope necessitating transfer to tertiary Care [facility] due to GI bleed. While in [place] he did undergo EGD revealed LA grade reflux esophagitis, normal esophagus, 3 cm hernia and multiple nonbleeding duodenal ulcers--highly suggested add the bleeding source. He received blood transfusion, and he was continued on high-dose PPI. Hemoglobin was monitored frequently. He did have a few episodes of black stool but subsequently was getting better upon discharge. Patient will discharge on swing bed and will continue antibiotic for recent diabetic foot infection. Update today on rounds, patient doing very well sitting in chair no complaints inspected wound no signs of infection, minimal drainage. Ongoing packing Primary problems S/P incision and drainage DOS January 09 and 01/11, continue with PICC line and antibiotics. PICC line placed on 01/15. Upper GI bleed, status post EGD, Grade D reflux esophagitis Nonbleeding duodenal ulcers, multiple Chronic, stable problems Hyperparathyroidism d/t CKD, Calcitriol, monitor creatinine CKD/SHAMEKA stage III, T2DM, uncontrolled (A1c 9.4 on 01/18/19) Tresiba 23 units in the morning, or lantus HTN amlodipine reduced to 2.5 mg recent low BP HLD, ASCVD 48%, however patient's desiring statin discontinuation BPH, Hypothyroidism, TSH 2.2 on 01/18/19 Cognitive impairment, mild. CODE STATUS, DNR DVT prophylaxis, not indicated, recent GI bleeding, low risk, NARINDER stockings Activity, NWB right foot except on heel when walking boot Follow-up 3 month post discharge with nephrology for management of hyperparathyroidism and CKD. Patient is refusing to travel refusing dialysis Infectious disease, 4 weeks post discharge--appointment made EGD surveillance, [place], 8 weeks post discharge Wound assessment today; Incision is approximately about 90% well healed plantarly. Mild serous drainage on packing today No purulence, no foul odor. Probes down 2 cm. No bone exposed. No edema, No sx/signs of infection. No pain. Overall plan, Dr June ([employer]) recommends acetic acid dressing then transition to iodoform until he follows up with the wound care team on February 04-- thin wound VAC therapy however family does not wish to travel. Epic message sent to restorative care technician stating wound VAC therapy can be placed here at [facility]. Will wait for his approval for this before proceeding with [facility] equipment/application of wound vac.
[2019-01-31] MEDS: Sodium Chloride 0.9% 10 ML Syringe FLUSH PRN (16:38)
[2019-02-01] MEDS: Piperacillin/Tazobactam/Dext 50 ML IV SCH ×3 (00:28→18:20)
[2019-02-01] MEDS: Sodium Chloride 0.9% 100 ML IV SCH (00:34)
[2019-02-01] MEDS: Levothyroxine 75 MCG Tab PO SCH (07:45)
[2019-02-01] MEDS: Pantoprazole 40 MG Tab.CR PO SCH ×2 (07:45→18:27)
[2019-02-01] MEDS: Tamsulosin 0.4 MG Cap.ER PO SCH (08:58)
[2019-02-01] MEDS: amLODIPine 5 MG Tab PO SCH (08:59)
[2019-02-01] MEDS: Insulin Aspart 100 Units/ML 3 ML Pen SUBCUT SCH ×3 (09:02→18:29)
[2019-02-01] MEDS: Triamcinolone Acetonide 0.1% Crm 15 GM Tube TOP SCH ×2 (09:02→21:44)
[2019-02-01] MEDS: Insulin Detemir 100 Units/ML 3 ML Pen SUBCUT SCH (09:50)
[2019-02-02] MEDS: Piperacillin/Tazobactam/Dext 50 ML IV SCH ×3 (01:07→16:25)
[2019-02-02] MEDS: Sodium Chloride 0.9% 100 ML IV SCH ×2 (01:08→16:25)
[2019-02-02] MEDS: Pantoprazole 40 MG Tab.CR PO SCH ×2 (06:31→17:30)
[2019-02-02] MEDS: Levothyroxine 75 MCG Tab PO SCH (06:31)
[2019-02-02] MEDS: Insulin Aspart 100 Units/ML 3 ML Pen SUBCUT SCH ×3 (08:14→17:30)
[2019-02-02] MEDS: Triamcinolone Acetonide 0.1% Crm 15 GM Tube TOP SCH ×2 (08:23→21:48)
[2019-02-02] MEDS: amLODIPine 5 MG Tab PO SCH (08:23)
[2019-02-02] MEDS: Tamsulosin 0.4 MG Cap.ER PO SCH (08:23)
[2019-02-02] MEDS: Insulin Detemir 100 Units/ML 3 ML Pen SUBCUT SCH (08:24)
[2019-02-03] MEDS: Piperacillin/Tazobactam/Dext 50 ML IV SCH ×3 (00:29→16:29)
[2019-02-03] MEDS: Sodium Chloride 0.9% 100 ML IV SCH (00:30)
[2019-02-03] MEDS: Levothyroxine 75 MCG Tab PO SCH (06:47)
[2019-02-03] MEDS: Pantoprazole 40 MG Tab.CR PO SCH ×2 (07:13→17:40)
[2019-02-03] MEDS: Insulin Detemir 100 Units/ML 3 ML Pen SUBCUT SCH (08:08)
[2019-02-03] MEDS: Insulin Aspart 100 Units/ML 3 ML Pen SUBCUT SCH ×3 (08:09→17:59)
[2019-02-03] MEDS: Triamcinolone Acetonide 0.1% Crm 15 GM Tube TOP SCH ×2 (08:10→20:01)
[2019-02-03] MEDS: Tamsulosin 0.4 MG Cap.ER PO SCH (08:11)
[2019-02-03] MEDS: amLODIPine 5 MG Tab PO SCH (08:11)
[2019-02-04] MEDS: Sodium Chloride 0.9% 100 ML IV SCH (00:25)
[2019-02-04] MEDS: Piperacillin/Tazobactam/Dext 50 ML IV SCH ×2 (00:26→09:23)
[2019-02-04] MEDS: Acetaminophen 325 MG Tab PO PRN ×2 (06:25→19:19)
[2019-02-04] MEDS: Pantoprazole 40 MG Tab.CR PO SCH ×2 (06:36→17:17)
[2019-02-04] MEDS: Levothyroxine 75 MCG Tab PO SCH (06:36)
[2019-02-04] MEDS: Insulin Aspart 100 Units/ML 3 ML Pen SUBCUT SCH ×3 (07:44→18:07)
[2019-02-04 07:55] LABS: ANION GAP 15.6 mmol/L (5-15)
[2019-02-04] MEDS: amLODIPine 5 MG Tab PO SCH (09:07)
[2019-02-04] MEDS ORDERED: Piperacillin/Tazobactam/Dext 3.375 GM in Premix Bag 1 BAG IV SCH (09:15)
[2019-02-04] MEDS: Insulin Detemir 100 Units/ML 3 ML Pen SUBCUT SCH (09:39)
[2019-02-04] MEDS: Triamcinolone Acetonide 0.1% Crm 15 GM Tube TOP SCH ×2 (09:41→21:00)
[2019-02-04] MEDS: Tamsulosin 0.4 MG Cap.ER PO SCH (09:56)
[2019-02-04] MEDS: Sodium Chloride 0.9% 10 ML Syringe FLUSH PRN (09:56)
[2019-02-04] MEDS: Piperacillin/Tazobactam 2.25 GM in Sodium Chloride 0.9% 50 ML IV SCH ×2 (09:57→17:17)
[2019-02-04] MEDS: Sodium Chloride 0.9% 1,000 ML IV SCH (09:57)
--- NOTE | 2019-02-04 11:03 | CR ---
[id number] RAD/RAD Chest PA And Lateral EXAM: FRONTAL AND LATERAL CHEST INDICATION: COUGH. COMPARISON: July 03, 2012. DISCUSSION: There are bilateral interstitial opacities and small effusions which could relate to underlying fluid overload. Focal airspace opacities in the left lung base suggest superimposed pneumonia. Unless clinically indicated sooner, a 3 month follow-up is suggested to ensure resolution. A right upper extremity PICC is in satisfactory position tip overlying the cavoatrial junction. IMPRESSION: 1. Left base infiltrates superimposed on mild pulmonary edema. Ross Coelho MD 02/04/19 1102 Thank you for allowing us to participate in the care of your patient.
[2019-02-05] MEDS: Sodium Chloride 0.9% 1,000 ML IV SCH (01:27)
[2019-02-05] MEDS: Sodium Chloride 0.9% 100 ML IV SCH (01:28)
[2019-02-05] MEDS: Piperacillin/Tazobactam 2.25 GM in Sodium Chloride 0.9% 50 ML IV SCH ×3 (01:28→17:47)
[2019-02-05] MEDS: Acetaminophen 325 MG Tab PO PRN (01:31)
[2019-02-05] MEDS: Pantoprazole 40 MG Tab.CR PO SCH ×2 (07:41→17:45)
[2019-02-05] MEDS: Levothyroxine 75 MCG Tab PO SCH (07:41)
[2019-02-05] MEDS: Tamsulosin 0.4 MG Cap.ER PO SCH (08:49)
[2019-02-05] MEDS: Triamcinolone Acetonide 0.1% Crm 15 GM Tube TOP SCH ×2 (08:52→21:04)
[2019-02-05] MEDS: Sodium Chloride 0.9% 10 ML Syringe FLUSH PRN ×5 (09:14→23:41)
[2019-02-05] MEDS: Insulin Detemir 100 Units/ML 3 ML Pen SUBCUT SCH (09:15)
[2019-02-05] MEDS: Insulin Aspart 100 Units/ML 3 ML Pen SUBCUT SCH ×3 (09:36→17:55)
[2019-02-05] MEDS: amLODIPine 5 MG Tab PO SCH (09:37)
[2019-02-05 09:49] LABS: ANION GAP 10.1 mmol/L (5-15)
[2019-02-05] MEDS: Albuterol/Ipratropium 3.0-0.5 MG/3 ML Neb Soln NEB SCH ×2 (18:47→21:04)
[2019-02-05 18:55] LABS: O2 DELIVERY DEVICE NASAL CANNULA
[2019-02-05 19:02] LABS: BASE EXCESS ARTERIAL -7 mmol/L (-2-3); BICARBONATE,ARTERIAL 17.2 mmol/L (22-26); O2 SATURATION ARTERIAL 84 % (95-98); PCO2 ARTERIAL 27 mmHG (35-45); PO2 ARTERIAL 47 mmHG (80-105)
[2019-02-05] MEDS ORDERED: Furosemide 40 MG/4 ML VIAL IVPUSH ONE ×2 (19:02→23:10)
[2019-02-06] MEDS: Albuterol/Ipratropium 3.0-0.5 MG/3 ML Neb Soln NEB SCH ×6 (01:13→22:51)
[2019-02-06] MEDS: Sodium Chloride 0.9% 100 ML IV SCH (01:21)
[2019-02-06] MEDS: Piperacillin/Tazobactam 2.25 GM in Sodium Chloride 0.9% 50 ML IV SCH ×3 (01:24→17:56)
[2019-02-06] MEDS: Insulin Aspart 100 Units/ML 3 ML Pen SUBCUT SCH ×3 (07:30→18:04)
[2019-02-06] MEDS: Pantoprazole 40 MG Tab.CR PO SCH ×2 (07:30→17:57)
[2019-02-06] MEDS: Levothyroxine 75 MCG Tab PO SCH (07:30)
[2019-02-06 07:43] LABS: ANION GAP 15.8 mmol/L (5-15)
[2019-02-06 09:01] LABS: O2 DELIVERY DEVICE HI FLOW NASAL CANNU
[2019-02-06 09:17] LABS: PCO2 ARTERIAL 34 mmHG (35-45); PO2 ARTERIAL 55 mmHG (80-105)
[2019-02-06 09:18] LABS: BASE EXCESS ARTERIAL -5 mmol/L (-2-3); BICARBONATE,ARTERIAL 20.4 mmol/L (22-26); O2 SATURATION ARTERIAL 88 % (95-98)
[2019-02-06] MEDS ORDERED: Furosemide 40 MG/4 ML VIAL IVPUSH ONE (09:37)
[2019-02-06] MEDS: amLODIPine 5 MG Tab PO SCH (09:44)
[2019-02-06] MEDS: Insulin Detemir 100 Units/ML 3 ML Pen SUBCUT SCH (09:47)
[2019-02-06] MEDS: Sodium Chloride 0.9% 10 ML Syringe FLUSH PRN ×2 (10:16→11:30)
[2019-02-06] MEDS: Triamcinolone Acetonide 0.1% Crm 15 GM Tube TOP SCH ×2 (10:20→22:51)
--- NOTE | 2019-02-06 10:20 | PCM.PN ---
- General Info Date of Service: 02/06/19 Functional Status: Reports: Pain Controlled, New Symptoms (Increased shortness of breath, requiring BiPAP last night, BiPAP placed on 0 1:30 in the morning. ) . Denies: Tolerating Diet - Review of Systems General: Denies: Fever, Weakness, Appetite HEENT: Reports: No Symptoms Pulmonary: Reports: Shortness of Breath. Denies: Cough Cardiovascular: Denies: Chest Pain, Orthopnea, Edema Gastrointestinal: Reports: No Symptoms Genitourinary: Reports: Incontinence Musculoskeletal: Reports: No Symptoms Skin: Reports: Other (Wound VAC placed on) Neurological: Denies: Confusion Psychiatric: Denies: Confusion, Agitation - Patient Data Vitals - Most Recent: Last Vital Signs Temp 98.9 F 02/06/19 06:31 Pulse 80 02/06/19 06:31 Resp 28 H 02/06/19 06:31 BP 94/49 L 02/06/19 09:44 Pulse Ox 92 L 02/06/19 07:00 Weight - Most Recent: 145 lb 4 oz I&O - Last 24 Hours: Intake & Output 02/05/19 02/06/19 02/06/19 22:59 06:59 14:59 Intake Total 560 100 Output Total 300 1200 Balance 260 -1100 Lab Results Last 24 Hours: Laboratory Results - last 24 hr 02/05/19 02/05/19 02/05/19 Range/Units 11:41 17:40 18:50 ABG pH 7.42 (7.35-7.45) ABG pCO2 27 L (35-45) mmHG ABG pO2 47 L (80-105) mmHG ABG HCO3 17.2 L (22-26) mmol/L ABG Total CO2 18 L (23-27) mmol/L ABG O2 Saturation 84 L (95-98) % ABG Base Excess -7 L (-2-3) mmol/L O2 Delivery Device Nasal cannula Sodium (136-145) mmol/L Potassium (3.3-5.3) mmol/L Chloride (98-115) mmol/L Carbon Dioxide (21.0-32.0) mmol/L Anion Gap (5-15) mmol/L BUN (6-25) mg/dL Creatinine (0.51-1.17) mg/dL Est Cr Clr Drug Dosing mL/min Estimated GFR (MDRD) mL/min Glucose (75 - 99) mg/dL POC Glucose 231 H 133 H (74-106) mg/dl Calcium (8.7-10.3) mg/dL Total Bilirubin (0.2-1.0) mg/dL AST (15-37) U/L ALT (12-78) U/L Alkaline Phosphatase (46-116) IU/L Troponin I (0.00-0.070) ng/mL B-Natriuretic Peptide (0-100) pg/mL Total Protein (6.4-8.2) g/dL Albumin (3.00-4.80) g/dL 02/06/19 02/06/19 02/06/19 Range/Units 07:10 07:10 07:42 ABG pH (7.35-7.45) ABG pCO2 (35-45) mmHG ABG pO2 (80-105) mmHG ABG HCO3 (22-26) mmol/L ABG Total CO2 (23-27) mmol/L ABG O2 Saturation (95-98) % ABG Base Excess (-2-3) mmol/L O2 Delivery Device Sodium 141 (136-145) mmol/L Potassium 3.7 (3.3-5.3) mmol/L Chloride 106 (98-115) mmol/L Carbon Dioxide 22.9 (21.0-32.0) mmol/L Anion Gap 15.8 H (5-15) mmol/L BUN 54 H* (6-25) mg/dL Creatinine 4.62 H (0.51-1.17) mg/dL Est Cr Clr Drug Dosing 10.43 mL/min Estimated GFR (MDRD) 12 mL/min Glucose 122 H (75 - 99) mg/dL POC Glucose 117 H (74-106) mg/dl Calcium 8.8 (8.7-10.3) mg/dL Total Bilirubin 0.4 (0.2-1.0) mg/dL AST 40 H (15-37) U/L ALT 37 (12-78) U/L Alkaline Phosphatase 134 H (46-116) IU/L Troponin I 0.08 H* (0.00-0.070) ng/mL B-Natriuretic Peptide 196 H (0-100) pg/mL Total Protein 5.0 L (6.4-8.2) g/dL Albumin 1.49 L (3.00-4.80) g/dL 02/06/19 Range/Units 08:55 ABG pH 7.38 (7.35-7.45) ABG pCO2 34 L (35-45) mmHG ABG pO2 55 L (80-105) mmHG ABG HCO3 20.4 L (22-26) mmol/L ABG Total CO2 21 L (23-27) mmol/L ABG O2 Saturation 88 L (95-98) % ABG Base Excess -5 L (-2-3) mmol/L O2 Delivery Device Hi flow nasal cannu Sodium (136-145) mmol/L Potassium (3.3-5.3) mmol/L Chloride (98-115) mmol/L Carbon Dioxide (21.0-32.0) mmol/L Anion Gap (5-15) mmol/L BUN (6-25) mg/dL Creatinine (0.51-1.17) mg/dL Est Cr Clr Drug Dosing mL/min Estimated GFR (MDRD) mL/min Glucose (75 - 99) mg/dL POC Glucose (74-106) mg/dl Calcium (8.7-10.3) mg/dL Total Bilirubin (0.2-1.0) mg/dL AST (15-37) U/L ALT (12-78) U/L Alkaline Phosphatase (46-116) IU/L Troponin I (0.00-0.070) ng/mL B-Natriuretic Peptide (0-100) pg/mL Total Protein (6.4-8.2) g/dL Albumin (3.00-4.80) g/dL Med Orders - Current: Current Medications Acetaminophen (Tylenol) 650 mg PO Q4H PRN PRN Reason: Fever Last Admin: 02/05/19 01:31 Dose: 650 mg Albuterol/Ipratropium (Duoneb 3.0-0.5 Mg/3 Ml) 3 ml NEB Q4HRRT [facility] Last Admin: 02/06/19 09:10 Dose: 3 ml Amlodipine Besylate (Norvasc) 2.5 mg PO DAILY [facility] Last Admin: 02/06/19 09:44 Dose: Not Given Bisacodyl (Dulcolax) 10 mg RECTAL DAILY PRN PRN Reason: Constipation Calcium Carbonate/Glycine (Tums) 500 mg PO QID PRN PRN Reason: INDIGESTION Sodium Chloride (Normal Saline) 100 mls @ 100 mls/hr IV 0030 [facility] Last Admin: 02/06/19 01:21 Dose: Not Given Piperacillin Sod/Tazobactam (Sod 2.25 gm/ Sodium Chloride) 50 mls @ 100 mls/hr IV Q8H [facility] Stop: 02/20/19 23:59 Last Admin: 02/06/19 01:24 Dose: 100 mls/hr Insulin Aspart (Novolog) 0 unit SUBCUT TIDMEALS [facility]; Protocol Last Admin: 02/06/19 07:30 Dose: Not Given Insulin Detemir (Levemir) 17 unit SUBCUT DAILY [facility] Last Admin: 02/06/19 09:47 Dose: Not Given Levothyroxine Sodium (Levothyroxine) 75 mcg PO ACBREAKFAST [facility] Last Admin: 02/06/19 07:30 Dose: Not Given Loperamide HCl (Imodium) 2 mg PO Q4H PRN PRN Reason: Diarrhea Melatonin (Melatonin) 3 mg PO BEDTIME PRN PRN Reason: Insomnia Ondansetron HCl (Zofran Odt) 4 mg PO Q4H PRN PRN Reason: Nausea Pantoprazole Sodium (Protonix) 40 mg PO BIDAC [facility] Last Admin: 02/06/19 07:30 Dose: Not Given Senna/Docusate Sodium (Senna Plus) 2 tab PO BID PRN PRN Reason: Constipation Sodium Chloride (Saline Flush) 10 ml FLUSH ASDIRECTED PRN PRN Reason: Other Last Admin: 02/05/19 23:41 Dose: 10 ml Tamsulosin HCl (Flomax) 0.4 mg PO DAILY [facility] Last Admin: 02/05/19 08:49 Dose: 0.4 mg Triamcinolone Acetonide (Triamcinolone Acetonide 0.1% Crm) 0 gm TOP BID [facility] Last Admin: 02/05/19 21:04 Dose: 1 applic Discontinued Medications Acetaminophen (Tylenol Extra Strength) 500 mg PO Q4H PRN PRN Reason: Pain Amlodipine Besylate (Norvasc) 5 mg PO DAILY [facility] Last Admin: 01/31/19 08:51 Dose: Not Given Atorvastatin Calcium (Lipitor) 40 mg PO DAILY [facility] Last Admin: 01/31/19 08:49 Dose: 40 mg Furosemide (Lasix) 20 mg IVPUSH ONETIME ONE Stop: 02/05/19 19:03 Last Admin: 02/05/19 19:12 Dose: 20 mg Furosemide (Lasix) 40 mg IVPUSH NOW ONE Stop: 02/05/19 23:11 Last Admin: 02/05/19 23:32 Dose: 40 mg Furosemide (Lasix) 40 mg IVPUSH NOW ONE Stop: 02/06/19 09:38 Piperacillin Sod/Tazobactam (Sod 3.375 gm/ Sodium Chloride) 50 mls @ 100 mls/ hr IV Q8H [facility] Last Admin: 01/22/19 22:05 Dose: Not Given Sodium Chloride (Normal Saline) 100 mls @ 100 mls/hr IV ASDIRECTED PRN PRN Reason: FLUSH Piperacillin/Tazobactam/Dextrose (Zosyn In Dextrose Iso-Osmotic 3.375 Gm) 50 mls @ 100 mls/hr IV Q8H [facility] Last Admin: 01/29/19 18:29 Dose: 100 mls/hr Sodium Chloride (Normal Saline) 100 mls @ 100 mls/hr IV 2200 PRN PRN Reason: FLUSH Last Admin: 01/22/19 22:12 Dose: 100 mls/hr Sodium Chloride (Normal Saline) 100 mls @ 100 mls/hr IV 2200 [facility] Last Admin: 01/28/19 22:13 Dose: 100 mls/hr Sodium Chloride (Normal Saline) Confirm Administered Dose 100 mls @ as directed .ROUTE .STK-MED ONE Stop: 01/27/19 22:57 Last Admin: 01/28/19 13:50 Dose: 100 mls/hr Piperacillin/Tazobactam/Dextrose (Zosyn In Dextrose Iso-Osmotic 3.375 Gm) 50 mls @ 100 mls/hr IV Q8H [facility] Last Admin: 02/04/19 09:23 Dose: Not Given Sodium Chloride (Normal Saline) Confirm Administered Dose 100 mls @ as directed .ROUTE .STK-MED ONE Stop: 01/30/19 00:46 Last Admin: 01/30/19 03:14 Dose: Not Given Sodium Chloride (Normal Saline) Confirm Administered Dose 100 mls @ as directed .ROUTE .STK-MED ONE Stop: 01/31/19 00:02 Last Admin: 01/31/19 02:23 Dose: Not Given Sodium Chloride (Normal Saline) 1,000 mls @ 75 mls/hr IV ASDIRECTED [facility] Last Admin: 02/05/19 01:27 Dose: 75 mls/hr Piperacillin/Tazobactam/ (Dextrose 3.375 gm/ Premix) 50 mls @ 100 mls/hr IV Q8H [facility] Last Admin: 02/04/19 09:23 Dose: Not Given Insulin Aspart (Novolog) 5 unit SUBCUT ONETIME ONE Stop: 01/22/19 20:52 Last Admin: 01/22/19 21:15 Dose: 5 unit Insulin Detemir (Levemir) 23 unit SUBCUT DAILY [facility] Last Admin: 02/04/19 09:39 Dose: 23 units - Exam Quality Assessment: Supplemental Oxygen General: Alert, Mild Distress Neck: JVD Lungs: Crackles Cardiovascular: Regular Rate, Regular Rhythm. No: Tachycardia GI/Abdominal Exam: Soft (Male) Exam: Deferred Back Exam: No: CVA Tenderness (L), CVA Tenderness (R) Extremities: No: Pedal Edema Skin: Warm, Cool Wound/Incisions: Healing Well, Other (Wound VAC right foot placed 02/05/2019) Psy/Mental Status: Alert. No: Anxious - Problem List Review Problem List Initiated/Reviewed/Updated: Yes - My Orders Last 24 Hours: My Active Orders 02/05/19 09:00 Insulin Detemir [Levemir] 17 unit SUBCUT DAILY 02/05/19 14:18 Communication Order [RC] DAILY 02/05/19 18:20 RT Aerosol Therapy [RC] ASDIRECTED 02/05/19 18:30 Albuterol/Ipratropium [DuoNeb 3.0-0.5 MG/3 ML] 3 ml NEB Q4HRRT 02/05/19 23:[address]atheter [Insert Urinary Catheter] [OM.PC] Stat 02/06/19 01:00 BIPAP Adult [RT BiPAP/CPAP] [RC] ASDIRECTED 02/06/19 04:24 Urinary Catheter Assessment [RC] 0600,1400,2300 02/06/19 08:32 Chest 1V Frontal [CR] Routine - Plan Plan:: History of present illness 78-year-old male returns back to [facility] swing bed halfway status from. He was in swing bed status here at [facility] evening IV antibiotics for a diabetic foot infection when he started having decrease hemoglobin, melena , loose bowel movements with an episode of syncope necessitating transfer to tertiary Care [facility] due to GI bleed. While in [place] he did undergo EGD revealed LA grade reflux esophagitis, normal esophagus, 3 cm hernia and multiple nonbleeding duodenal ulcers--highly suggested add the bleeding source. He received blood transfusion, and he was continued on high-dose PPI. Hemoglobin was monitored frequently. He did have a few episodes of black stool but subsequently was getting better upon discharge. Patient will discharge on swing bed and will continue antibiotic for recent diabetic foot infection. Update: Patient with worsening renal function along with shortness of breath with pulmonary Rales, BiPAP placed on 0 1:30 last night due to hypoxia, did well on settings IPAP 18/8. Is able to tolerate BiPAP for approximately 8 hours then weaning trial this morning O2 sats dropped 88-90%. Now on rebreather. Wound VAC placed right foot yesterday, good seal. Primary problems Acute respiratory failure, BiPAP. Kidney disease, SHAMEKA stage V S/P incision and drainage DOS January 09 and 01/11, continue with PICC line and antibiotics. PICC line placed on 01/15. Upper GI bleed, status post EGD, Grade D reflux esophagitis Nonbleeding duodenal ulcers, multiple Chronic, stable problems Hyperparathyroidism d/t CKD, Calcitriol, monitor creatinine CKD/SHAMEKA stage IV/V, T2DM, uncontrolled (A1c 9.4 on 01/18/19) Tresiba 23 units in the morning, or lantus HTN amlodipine reduced to 2.5 mg recent low BP HLD, ASCVD 48%, however patient's desiring statin discontinuation--consulted family as important medication in light of renal failure BPH, Hypothyroidism, TSH 2.2 on 01/18/19 Cognitive impairment, mild. CODE STATUS, DNR DVT prophylaxis, not indicated, recent GI bleeding, low risk, NARINDER stockings Activity, NWB right foot except on heel when walking boot Consultations Dr June (Merchandise Supervisor) -I consulted with him and informed him wound VAC could be placed here at [facility], he agreed with plan, wound VAC placed 02/05/2019 Johana Mcguire MD, (ID) - Decrease dose of piperacillin+tazobactam to 2.25g IV Q8H - Increase oral fluid intake - Continue piperacillin+tazobactam stop date 02/20/19 - Continue weekly labs, repeat Creatinine on 02/07/19 - Follow up with her as scheduled. 3 month post discharge with nephrology for management of hyperparathyroidism and CKD. Patient is refusing to travel refusing dialysis Infectious disease, 4 weeks post discharge--appointment made EGD surveillance, [place], 8 weeks post discharge Dispostion/status/update, Patient with worsening renal function along with shortness of breath with pulmonary Rales, BiPAP placed on 0 1:30 last night due to hypoxia, did well on settings IPAP 18/8. Street catheter placed last night, 1200 output, some improvement in Rales, 8 down 2 pounds since last night, tolerated BiPAP for approximately 8 hours then weaning trial this morning O2 sats dropped 88-90%. Now on rebreather. No signs of acidotic picture, ABG PaO2 increased to 55%, RR improved from 40 last night to 28 this morning. Wound VAC placed right foot yesterday, good seal. Extensive family discussion over the past 48-hours regarding overall plan and worsening acute on chronic renal failure necessitating the conversation of possible renal replacement therapy. I consulted Dr. Frost, office machine installer and he does agree that renal replacement therapy would be needed however if family would decide to forego this it would also be a reasonable decision given age, invasiveness. Consulted with primary family member Beba; gave her update on patient's tear eating renal and pulmonary status status, this point she is refusing transfer, she is likely trending toward comfort cares, not desiring any invasive therapy at this point however she will discuss this further with other family members and consult with us regarding their decision. Until then Lasix today, chest x- ray, CMP, troponin, BNP.
[2019-02-06] MEDS: Tamsulosin 0.4 MG Cap.ER PO SCH (10:32)
--- NOTE | 2019-02-06 14:14 | CR ---
[id number] RAD/RAD Chest PA or AP 1V EXAM: RAD Chest PA or AP 1V INDICATION: HYPOXIA. COMPARISON: February 04, 2019. DISCUSSION: Right-sided PICC line with tip overlying the midportion of the superior vena cava. The cardiomediastinal silhouette is enlarged. Diffuse patchy airspace opacifications lower lobe predominant seen throughout the lungs bilaterally. Elevation left hemidiaphragm. IMPRESSION: Findings consistent with congestive heart failure exacerbation. Allan Portillo DO 02/06/19 1413 Thank you for allowing us to participate in the care of your patient.
[2019-02-06] MEDS ORDERED: Sodium Chloride 0.9% 250 ML IV SCH (14:45)
[2019-02-06] MEDS: Morphine 2 MG/ML Syringe IVPUSH PRN (15:41)
[2019-02-06] MEDS ORDERED: Sodium Chloride 0.9% 200 ML IV SCH (16:00)
[2019-02-07] MEDS: Piperacillin/Tazobactam 2.25 GM in Sodium Chloride 0.9% 50 ML IV SCH ×3 (01:18→18:47)
[2019-02-07] MEDS: Albuterol/Ipratropium 3.0-0.5 MG/3 ML Neb Soln NEB SCH ×4 (01:19→13:46)
[2019-02-07] MEDS: Sodium Chloride 0.9% 100 ML IV SCH (01:19)
[2019-02-07] MEDS: Sodium Chloride 0.9% 10 ML Syringe FLUSH PRN ×3 (02:14→15:04)
[2019-02-07] MEDS: Pantoprazole 40 MG Tab.CR PO SCH ×2 (08:11→17:51)
[2019-02-07] MEDS: Levothyroxine 75 MCG Tab PO SCH (08:11)
[2019-02-07] MEDS: Insulin Aspart 100 Units/ML 3 ML Pen SUBCUT SCH ×3 (08:13→17:54)
[2019-02-07] MEDS: Tamsulosin 0.4 MG Cap.ER PO SCH (11:33)
[2019-02-07] MEDS: Triamcinolone Acetonide 0.1% Crm 15 GM Tube TOP SCH ×2 (11:33→22:22)
[2019-02-07] MEDS: amLODIPine 5 MG Tab PO SCH (11:34)
[2019-02-07] MEDS: Insulin Detemir 100 Units/ML 3 ML Pen SUBCUT SCH (11:35)
[2019-02-07] MEDS ORDERED: Levalbuterol HCl 1.25 MG/3 ML Neb NEB SCH (13:53)
[2019-02-07] MEDS ORDERED: Furosemide 40 MG/4 ML VIAL IVPUSH ONE (13:59)
--- NOTE | 2019-02-07 14:12 | PCM.SN ---
- Free Text/Narrative Note: Family in room this morning visiting with patient. Patient has improved his respiratory status, seems more alert today however no longer requiring BiPAP however is requiring high flow O2 nasal cannula. Cough today with less rales now more wheezes Worsening cough with wheezing today, with elevation in white count without production. Blood pressure systolic 100, continues to IV diuresis however worsening renal profile. Some pruritus however family states somewhat chronic. Wound VAC right foot yesterday, good seal, due for new application dressing today however no drainage. Extensive family discussion today regarding progress and renal failure, however patient and family do not desire transfer and they do not desire acute nephrology consultation or renal replacement therapy. He was placed on palliative care with DNR status however the family is still contemplating comfort cares but have not made a definitive decision. Continue with swing bed therapy ongoing renal dose antibiotics. Add Xopenex nebulizers discontinue albuterol nebulizers. Likely discontinue Street indwelling catheter in the morning
[2019-02-07] MEDS: cefTRIAXone 1 GM Vial IVPUSH SCH (15:03)
[2019-02-07] MEDS: Levalbuterol HCl 0.63 MG/3 ML Neb NEB SCH (22:22)
[2019-02-08] MEDS: Piperacillin/Tazobactam 2.25 GM in Sodium Chloride 0.9% 50 ML IV SCH ×3 (01:29→17:47)
[2019-02-08] MEDS: Sodium Chloride 0.9% 100 ML IV SCH (01:30)
[2019-02-08] MEDS: Sodium Chloride 0.9% 10 ML Syringe FLUSH PRN ×2 (02:23→17:48)
[2019-02-08] MEDS: Levalbuterol HCl 0.63 MG/3 ML Neb NEB SCH ×2 (05:55→13:09)
[2019-02-08] MEDS: Pantoprazole 40 MG Tab.CR PO SCH ×2 (07:54→17:47)
[2019-02-08] MEDS: Levothyroxine 75 MCG Tab PO SCH (07:54)
[2019-02-08] MEDS: Tamsulosin 0.4 MG Cap.ER PO SCH (08:54)
[2019-02-08] MEDS: Insulin Aspart 100 Units/ML 3 ML Pen SUBCUT SCH ×3 (08:58→18:01)
[2019-02-08] MEDS: Insulin Detemir 100 Units/ML 3 ML Pen SUBCUT SCH (09:00)
[2019-02-08] MEDS: Triamcinolone Acetonide 0.1% Crm 15 GM Tube TOP SCH ×2 (09:01→21:35)
[2019-02-08] MEDS: cefTRIAXone 1 GM Vial IVPUSH SCH (13:05)
[2019-02-08] MEDS: Nystatin Crm 15 GM Tube TOP SCH ×2 (14:39→21:40)
--- NOTE | 2019-02-08 14:52 | PCM.PN ---
- General Info Date of Service: 02/08/19 Functional Status: Reports: Pain Controlled, Tolerating Diet, Urinating (Street catheterization family is desiring to continue with this for now). Denies: Ambulating - Review of Systems General: Reports: Weakness. Denies: Fever, Night Sweats HEENT: Reports: No Symptoms Pulmonary: Reports: Shortness of Breath, Cough. Denies: Sputum, Wheezing Cardiovascular: Denies: Chest Pain, Orthopnea, Edema Gastrointestinal: Reports: No Symptoms Genitourinary: Reports: Other (Indwelling Street catheter, clear yellow urine) Musculoskeletal: Reports: No Symptoms Skin: Reports: Pruritis (Mild) Neurological: Reports: Difficulty Walking, Gait Disturbance (Wound VAC right foot--no drainage). Denies: Confusion Psychiatric: Denies: Confusion, Agitation - Patient Data Vitals - Most Recent: Last Vital Signs Temp 99.2 F 02/08/19 06:53 Pulse 108 H 02/08/19 13:09 Resp 24 H 02/08/19 06:53 BP 94/48 L 02/08/19 06:53 Pulse Ox 92 L 02/08/19 13:09 Weight - Most Recent: 145 lb 2 oz I&O - Last 24 Hours: Intake & Output 02/07/19 02/08/19 02/08/19 22:59 06:59 14:59 Intake Total 410 135 110 Output Total 600 300 Balance -190 -165 110 Lab Results Last 24 Hours: Laboratory Results - last 24 hr 02/07/19 02/07/19 02/08/19 Range/Units 14:20 17:47 07:53 POC Glucose 226 H 198 H (74-106) mg/dl B-Natriuretic Peptide 305 H (0-100) pg/mL 02/08/19 Range/Units 12:05 POC Glucose 319 H (74-106) mg/dl B-Natriuretic Peptide (0-100) pg/mL Med Orders - Current: Current Medications Acetaminophen (Tylenol) 650 mg PO Q4H PRN PRN Reason: Fever Last Admin: 02/05/19 01:31 Dose: 650 mg Amlodipine Besylate (Norvasc) 2.5 mg PO DAILY [facility] Last Admin: 02/07/19 11:34 Dose: Not Given Bisacodyl (Dulcolax) 10 mg RECTAL DAILY PRN PRN Reason: Constipation Calcium Carbonate/Glycine (Tums) 500 mg PO QID PRN PRN Reason: INDIGESTION Last Admin: 02/07/19 11:33 Dose: 500 mg Ceftriaxone Sodium (Rocephin) 1 gm IVPUSH Q24H [facility] Last Admin: 02/08/19 13:05 Dose: 1 gm Sodium Chloride (Normal Saline) 100 mls @ 100 mls/hr IV 0030 [facility] Last Admin: 02/08/19 01:30 Dose: Not Given Piperacillin Sod/Tazobactam (Sod 2.25 gm/ Sodium Chloride) 50 mls @ 100 mls/hr IV Q8H [facility] Stop: 02/20/19 23:59 Last Admin: 02/08/19 09:16 Dose: 100 mls/hr Sodium Chloride (Normal Saline) 200 mls @ 200 mls/hr IV ASDIRECTED [facility] Insulin Aspart (Novolog) 0 unit SUBCUT TIDMEALS [facility]; Protocol Last Admin: 02/08/19 12:54 Dose: 8 units Insulin Detemir (Levemir) 17 unit SUBCUT DAILY [facility] Last Admin: 02/08/19 09:00 Dose: 17 units Levalbuterol HCl (Xopenex) 1.26 mg NEB Q8HRRT [facility] Last Admin: 02/08/19 13:09 Dose: 1.26 mg Levothyroxine Sodium (Levothyroxine) 75 mcg PO ACBREAKFAST [facility] Last Admin: 02/08/19 07:54 Dose: 75 mcg Loperamide HCl (Imodium) 2 mg PO Q4H PRN PRN Reason: Diarrhea Melatonin (Melatonin) 3 mg PO BEDTIME PRN PRN Reason: Insomnia Morphine Sulfate (Morphine) 2 mg IVPUSH Q4H PRN PRN Reason: Shortness of Breath Last Admin: 02/06/19 15:41 Dose: 2 mg Nystatin (Nystatin Crm) 1 gm TOP TID [facility] Ondansetron HCl (Zofran Odt) 4 mg PO Q4H PRN PRN Reason: Nausea Pantoprazole Sodium (Protonix) 40 mg PO BIDAC [facility] Last Admin: 02/08/19 07:54 Dose: 40 mg Senna/Docusate Sodium (Senna Plus) 2 tab PO BID PRN PRN Reason: Constipation Sodium Chloride (Saline Flush) 10 ml FLUSH ASDIRECTED PRN PRN Reason: Other Last Admin: 02/08/19 02:23 Dose: 10 ml Tamsulosin HCl (Flomax) 0.4 mg PO DAILY [facility] Last Admin: 02/08/19 08:54 Dose: 0.4 mg Triamcinolone Acetonide (Triamcinolone Acetonide 0.1% Crm) 0 gm TOP BID [facility] Last Admin: 02/08/19 09:01 Dose: 1 applic Discontinued Medications Acetaminophen (Tylenol Extra Strength) 500 mg PO Q4H PRN PRN Reason: Pain Albuterol/Ipratropium (Duoneb 3.0-0.5 Mg/3 Ml) 3 ml NEB Q4HRRT [facility] Last Admin: 02/07/19 13:46 Dose: Not Given Amlodipine Besylate (Norvasc) 5 mg PO DAILY [facility] Last Admin: 01/31/19 08:51 Dose: Not Given Atorvastatin Calcium (Lipitor) 40 mg PO DAILY [facility] Last Admin: 01/31/19 08:49 Dose: 40 mg Furosemide (Lasix) 20 mg IVPUSH ONETIME ONE Stop: 02/05/19 19:03 Last Admin: 02/05/19 19:12 Dose: 20 mg Furosemide (Lasix) 40 mg IVPUSH NOW ONE Stop: 02/05/19 23:11 Last Admin: 02/05/19 23:32 Dose: 40 mg Furosemide (Lasix) 40 mg IVPUSH NOW ONE Stop: 02/06/19 09:38 Last Admin: 02/06/19 10:15 Dose: 40 mg Furosemide (Lasix) 20 mg IVPUSH NOW ONE Stop: 02/07/19 14:00 Last Admin: 02/07/19 15:41 Dose: Not Given Piperacillin Sod/Tazobactam (Sod 3.375 gm/ Sodium Chloride) 50 mls @ 100 mls/ hr IV Q8H [facility] Last Admin: 01/22/19 22:05 Dose: Not Given Sodium Chloride (Normal Saline) 100 mls @ 100 mls/hr IV ASDIRECTED PRN PRN Reason: FLUSH Piperacillin/Tazobactam/Dextrose (Zosyn In Dextrose Iso-Osmotic 3.375 Gm) 50 mls @ 100 mls/hr IV Q8H [facility] Last Admin: 01/29/19 18:29 Dose: 100 mls/hr Sodium Chloride (Normal Saline) 100 mls @ 100 mls/hr IV 2200 PRN PRN Reason: FLUSH Last Admin: 01/22/19 22:12 Dose: 100 mls/hr Sodium Chloride (Normal Saline) 100 mls @ 100 mls/hr IV 2200 [facility] Last Admin: 01/28/19 22:13 Dose: 100 mls/hr Sodium Chloride (Normal Saline) Confirm Administered Dose 100 mls @ as directed .ROUTE .STK-MED ONE Stop: 01/27/19 22:57 Last Admin: 01/28/19 13:50 Dose: 100 mls/hr Piperacillin/Tazobactam/Dextrose (Zosyn In Dextrose Iso-Osmotic 3.375 Gm) 50 mls @ 100 mls/hr IV Q8H [facility] Last Admin: 02/04/19 09:23 Dose: Not Given Sodium Chloride (Normal Saline) Confirm Administered Dose 100 mls @ as directed .ROUTE .STK-MED ONE Stop: 01/30/19 00:46 Last Admin: 01/30/19 03:14 Dose: Not Given Sodium Chloride (Normal Saline) Confirm Administered Dose 100 mls @ as directed .ROUTE .STK-MED ONE Stop: 01/31/19 00:02 Last Admin: 01/31/19 02:23 Dose: Not Given Sodium Chloride (Normal Saline) 1,000 mls @ 75 mls/hr IV ASDIRECTED [facility] Last Admin: 02/05/19 01:27 Dose: 75 mls/hr Piperacillin/Tazobactam/ (Dextrose 3.375 gm/ Premix) 50 mls @ 100 mls/hr IV Q8H [facility] Last Admin: 02/04/19 09:23 Dose: Not Given Sodium Chloride (Normal Saline) 250 mls @ 999 mls/hr IV ASDIRECTED [facility] Last Admin: 02/06/19 16:45 Dose: 999 mls/hr Insulin Aspart (Novolog) 5 unit SUBCUT ONETIME ONE Stop: 01/22/19 20:52 Last Admin: 01/22/19 21:15 Dose: 5 unit Insulin Detemir (Levemir) 23 unit SUBCUT DAILY [facility] Last Admin: 02/04/19 09:39 Dose: 23 units Levalbuterol HCl (Xopenex) 1.25 mg NEB Q8HRRT [facility] Last Admin: 02/08/19 10:47 Dose: Not Given - Problem List Review Problem List Initiated/Reviewed/Updated: Yes - My Orders Last 24 Hours: My Active Orders 02/07/19 13:56 RT Aerosol Therapy [RC] ASDIRECTED 02/07/19 21:00 Levalbuterol HCl [Xopenex] 1.26 mg NEB Q8HRRT 02/08/19 14:00 Nystatin [Nystatin Crm] 1 gm TOP TID 02/08/19 Lunch Fluid Restriction [DIET] 02/09/19 05:11 BASIC METABOLIC PANEL,BMP [CHEM] AM - Plan Plan:: History of present illness 78-year-old male returns back to [facility] swing bed detention status from. He was in swing bed status here at [place] evening IV antibiotics for a diabetic foot infection when he started having decrease hemoglobin, melena , loose bowel movements with an episode of syncope necessitating transfer to tertiary Care [facility] due to GI bleed. While in [place] he did undergo EGD revealed LA grade reflux esophagitis, normal esophagus, 3 cm hernia and multiple nonbleeding duodenal ulcers--highly suggested add the bleeding source. He received blood transfusion, and he was continued on high-dose PPI. Hemoglobin was monitored frequently. He did have a few episodes of black stool but subsequently was getting better upon discharge. More recently patient has had significant acute on chronic precipitous decline in renal function, necessitating nephrology consultation for possible renal replacement therapy however after extensive conversation with family to have declined this. He continues in swing bed for IV antibiotics however has required increasing oxygen periodic BiPAP requirements likely contributed to CHF. recent chest x-rayevidence of fluid overload--family has declined chest CT for more definitive diagnosis. Primary problems respiratory failure, no longer requiring BiPAP. some improvement, on high flow nasal cannula. Acute on chronic renal failure, SHAMEKA Stage V, precipitous decline in renal function, renal dose medications, SHAMEKA stage V S/P incision and drainage DOS January 09 and 01/11, continue with PICC line and antibiotics. PICC line placed on 01/15. no drainage Upper GI bleed, status post EGD, Grade D reflux esophagitis Nonbleeding duodenal ulcers, multiple, PPI Chronic, stable problems Hyperparathyroidism d/t CKD, Calcitriol, monitor creatinine T2DM, uncontrolled (A1c 9.4 on 01/18/19) Tresiba 23 units in the morning, or lantus HTN amlodipine reduced to 2.5 mg recent low BP HLD, ASCVD 48%, however patient's desiring statin discontinuation--consulted family as important medication in light of renal failure BPH, on Flomax Hypothyroidism, TSH 2.2 on 01/18/19 Cognitive impairment, mild. CODE STATUS, DNR DVT prophylaxis, not indicated, recent GI bleeding, increased risk since wound VAC, NARINDER stockings Activity, NWB right foot except on heel when walking boot--current wound VAC Consultations Dr June (Medical Assistant Ob Gyn) - in consultation with him he is aware that wound VAC was placed on locally here at [place], wound VAC placed 02/05/2019 Johana Mcguire MD, (ID) - Decrease dose of piperacillin+tazobactam to 2.25g IV D9D--tjjk date 02/20/19 - Increase oral fluid intake - Continue weekly labs, - Follow up with her as scheduled. 3 month post discharge with nephrology for management of hyperparathyroidism and CKD. Patient is refusing to travel refusing dialysis Infectious disease, 4 weeks post discharge--appointment made EGD surveillance, [place], 8 weeks post discharge Dispostion/status/update, Patient with worsening and precipitous decline in his renal function--despite this long and ongoing conversation with family and patient who decline nephrology consultation/transfer or renal placement therapy given comorbidities , age, quality of life etc. ongoing hypoxia however some improvement no longer requiring BiPAP, plan was to discontinue Street catheter however patient and family urging continuation of this with the time being more for dignity purpose- -convenience despite risks were explained to them. Ongoing wound VAC with good seal however no drainage, likely futile at his stage of renal clearance.
[2019-02-08] MEDS: Levalbuterol HCl 1.25 MG/3 ML Neb NEB SCH (21:20)
[2019-02-09] MEDS: Sodium Chloride 0.9% 100 ML IV SCH (01:14)
[2019-02-09] MEDS: Piperacillin/Tazobactam 2.25 GM in Sodium Chloride 0.9% 50 ML IV SCH ×3 (01:17→17:58)
[2019-02-09] MEDS: Levalbuterol HCl 1.25 MG/3 ML Neb NEB SCH ×3 (05:34→20:30)
[2019-02-09] MEDS: Pantoprazole 40 MG Tab.CR PO SCH ×2 (06:41→17:57)
[2019-02-09] MEDS: Levothyroxine 75 MCG Tab PO SCH (06:41)
[2019-02-09] MEDS: Insulin Aspart 100 Units/ML 3 ML Pen SUBCUT SCH ×3 (07:35→19:37)
[2019-02-09 08:11] LABS: ANION GAP 18.7 mmol/L (5-15)
[2019-02-09] MEDS: Insulin Detemir 100 Units/ML 3 ML Pen SUBCUT SCH (08:34)
[2019-02-09] MEDS: Tamsulosin 0.4 MG Cap.ER PO SCH (08:36)
[2019-02-09] MEDS: Triamcinolone Acetonide 0.1% Crm 15 GM Tube TOP SCH ×2 (08:37→20:29)
[2019-02-09] MEDS: Nystatin Crm 15 GM Tube TOP SCH ×3 (11:15→20:29)
[2019-02-09] MEDS: cefTRIAXone 1 GM Vial IVPUSH SCH (15:32)
[2019-02-09] MEDS: [UNRECOGNIZED DRUG - OTHER] TOP SCH ×2 (17:51→20:29)
[2019-02-10] MEDS: Piperacillin/Tazobactam 2.25 GM in Sodium Chloride 0.9% 50 ML IV SCH ×3 (00:52→17:46)
[2019-02-10] MEDS: Sodium Chloride 0.9% 100 ML IV SCH (00:54)
[2019-02-10] MEDS: Levalbuterol HCl 1.25 MG/3 ML Neb NEB SCH ×3 (05:13→21:47)
[2019-02-10] MEDS: Pantoprazole 40 MG Tab.CR PO SCH ×3 (06:27→17:46)
[2019-02-10] MEDS: Levothyroxine 75 MCG Tab PO SCH ×2 (06:27→06:36)
[2019-02-10] MEDS: Insulin Detemir 100 Units/ML 3 ML Pen SUBCUT SCH (09:01)
[2019-02-10] MEDS: Insulin Aspart 100 Units/ML 3 ML Pen SUBCUT SCH ×3 (09:03→17:55)
[2019-02-10] MEDS: Tamsulosin 0.4 MG Cap.ER PO SCH (09:06)
[2019-02-10] MEDS: Triamcinolone Acetonide 0.1% Crm 15 GM Tube TOP SCH ×2 (10:00→21:46)
[2019-02-10] MEDS: [UNRECOGNIZED DRUG - OTHER] TOP SCH ×3 (11:21→21:46)
[2019-02-10] MEDS: Nystatin Crm 15 GM Tube TOP SCH ×3 (11:23→21:47)
[2019-02-10] MEDS: cefTRIAXone 1 GM Vial IVPUSH SCH (13:59)
[2019-02-10] MEDS: Morphine 2 MG/ML Syringe IVPUSH PRN (14:32)
[2019-02-11] MEDS: Piperacillin/Tazobactam 2.25 GM in Sodium Chloride 0.9% 50 ML IV SCH ×3 (01:52→17:38)
[2019-02-11] MEDS ORDERED: Sodium Chloride 0.9% 100 ML IV SCH (02:00)
[2019-02-11] MEDS: Levalbuterol HCl 1.25 MG/3 ML Neb NEB SCH ×3 (06:01→20:37)
[2019-02-11] MEDS: Levothyroxine 75 MCG Tab PO SCH (07:35)
[2019-02-11] MEDS: Pantoprazole 40 MG Tab.CR PO SCH ×2 (07:35→17:36)
[2019-02-11] MEDS: Triamcinolone Acetonide 0.1% Crm 15 GM Tube TOP SCH ×2 (08:57→22:27)
[2019-02-11] MEDS: Nystatin Crm 15 GM Tube TOP SCH ×3 (08:57→22:27)
[2019-02-11] MEDS: Tamsulosin 0.4 MG Cap.ER PO SCH (08:57)
[2019-02-11] MEDS: [UNRECOGNIZED DRUG - OTHER] TOP SCH ×3 (08:58→22:27)
[2019-02-11] MEDS: Insulin Detemir 100 Units/ML 3 ML Pen SUBCUT SCH (09:39)
[2019-02-11] MEDS: Insulin Aspart 100 Units/ML 3 ML Pen SUBCUT SCH ×3 (09:39→18:14)
[2019-02-11] MEDS: Sodium Chloride 0.9% 10 ML Syringe FLUSH PRN ×7 (10:11→20:37)
[2019-02-11] MEDS: Sodium Chloride 0.9% 100 ML IV SCH (10:11)
[2019-02-11] MEDS: cefTRIAXone 1 GM Vial IVPUSH SCH (13:30)
[2019-02-11] MEDS: Acetaminophen 325 MG Tab PO PRN (17:36)
[2019-02-11] MEDS: Morphine 2 MG/ML Syringe IVPUSH PRN (20:36)
[2019-02-12] MEDS: Piperacillin/Tazobactam 2.25 GM in Sodium Chloride 0.9% 50 ML IV SCH ×3 (01:39→18:30)
[2019-02-12] MEDS: Levalbuterol HCl 1.25 MG/3 ML Neb NEB SCH (05:51)
[2019-02-12] MEDS: Levothyroxine 75 MCG Tab PO SCH (07:33)
[2019-02-12] MEDS: Pantoprazole 40 MG Tab.CR PO SCH ×2 (07:33→18:30)
[2019-02-12] MEDS: Tamsulosin 0.4 MG Cap.ER PO SCH (08:09)
[2019-02-12] MEDS ORDERED: Levalbuterol HCl 1.25 MG/3 ML Neb NEB PRN (09:18)
[2019-02-12] MEDS: Insulin Aspart 100 Units/ML 3 ML Pen SUBCUT SCH ×3 (09:26→17:57)
--- NOTE | 2019-02-12 09:36 | PCM.PN ---
- General Info Date of Service: 02/12/19 Functional Status: Reports: Pain Controlled, Tolerating Diet, Urinating. Denies : Ambulating - Review of Systems General: Denies: Malaise, Chills HEENT: Reports: No Symptoms Pulmonary: Reports: Shortness of Breath. Denies: Cough, Sputum Gastrointestinal: Denies: Abdominal Pain, Decreased Appetite Genitourinary: Reports: Other (clear yellow urine resendiz indwelling) Skin: Reports: Pruritis (mild) Neurological: Denies: Confusion Psychiatric: Denies: Confusion - Patient Data Vitals - Most Recent: Last Vital Signs Temp 99.5 F 02/12/19 06:07 Pulse 98 02/12/19 06:07 Resp 28 H 02/12/19 06:07 BP 98/58 L 02/12/19 06:07 Pulse Ox 90 L 02/12/19 06:07 Weight - Most Recent: 145 lb 4 oz I&O - Last 24 Hours: Intake & Output 02/11/19 02/12/19 02/12/19 22:59 06:59 14:59 Intake Total 285 185 Output Total 50 200 Balance 235 -15 Lab Results Last 24 Hours: Laboratory Results - last 24 hr 02/11/19 02/11/19 02/12/19 Range/Units 11:46 17:45 07:31 POC Glucose 237 H 304 H 275 H (74-106) mg/dl Med Orders - Current: Current Medications Acetaminophen (Tylenol) 650 mg PO Q4H PRN PRN Reason: Fever Last Admin: 02/11/19 17:36 Dose: 650 mg Bacitracin (Get Ointment) 0 ml TOP TID [facility] Last Admin: 02/11/19 22:27 Dose: Not Given Bisacodyl (Dulcolax) 10 mg RECTAL DAILY PRN PRN Reason: Constipation Calcium Carbonate/Glycine (Tums) 500 mg PO QID PRN PRN Reason: INDIGESTION Last Admin: 02/07/19 11:33 Dose: 500 mg Ceftriaxone Sodium (Rocephin) 1 gm IVPUSH Q24H [facility] Last Admin: 02/11/19 13:30 Dose: 1 gm Piperacillin Sod/Tazobactam (Sod 2.25 gm/ Sodium Chloride) 50 mls @ 100 mls/hr IV 0200,1000,1800 [facility] Stop: 02/20/19 23:59 Last Admin: 02/12/19 01:39 Dose: 100 mls/hr Sodium Chloride (Normal Saline) 100 mls @ 100 mls/hr IV ASDIRECTED [facility] Last Admin: 02/11/19 10:11 Dose: 100 mls/hr Insulin Aspart (Novolog) 0 unit SUBCUT TIDMEALS [facility]; Protocol Last Admin: 02/11/19 18:14 Dose: 6 units Levalbuterol HCl (Xopenex) 1.25 mg NEB Q8HRRT [facility] Last Admin: 02/12/19 05:51 Dose: 1.25 mg Levothyroxine Sodium (Levothyroxine) 75 mcg PO ACBREAKFAST [facility] Last Admin: 02/12/19 07:33 Dose: 75 mcg Loperamide HCl (Imodium) 2 mg PO Q4H PRN PRN Reason: Diarrhea Last Admin: 02/10/19 14:31 Dose: 2 mg Melatonin (Melatonin) 3 mg PO BEDTIME PRN PRN Reason: Insomnia Last Admin: 02/11/19 20:38 Dose: 3 mg Morphine Sulfate (Morphine) 2 mg IVPUSH Q4H PRN PRN Reason: Shortness of Breath Last Admin: 02/11/19 20:36 Dose: 2 mg Nystatin (Nystatin Crm) 1 gm TOP TID [facility] Last Admin: 02/11/19 22:27 Dose: Not Given Ondansetron HCl (Zofran Odt) 4 mg PO Q4H PRN PRN Reason: Nausea Pantoprazole Sodium (Protonix) 40 mg PO BIDAC [facility] Last Admin: 02/12/19 07:33 Dose: 40 mg Senna/Docusate Sodium (Senna Plus) 2 tab PO BID PRN PRN Reason: Constipation Sodium Chloride (Saline Flush) 10 ml FLUSH ASDIRECTED PRN PRN Reason: Other Last Admin: 02/11/19 20:37 Dose: 10 ml Tamsulosin HCl (Flomax) 0.4 mg PO DAILY [facility] Last Admin: 02/12/19 08:09 Dose: 0.4 mg Triamcinolone Acetonide (Triamcinolone Acetonide 0.1% Crm) 0 gm TOP BID [facility] Last Admin: 02/11/19 22:27 Dose: Not Given Discontinued Medications Acetaminophen (Tylenol Extra Strength) 500 mg PO Q4H PRN PRN Reason: Pain Albuterol/Ipratropium (Duoneb 3.0-0.5 Mg/3 Ml) 3 ml NEB Q4HRRT [facility] Last Admin: 02/07/19 13:46 Dose: Not Given Amlodipine Besylate (Norvasc) 5 mg PO DAILY [facility] Last Admin: 01/31/19 08:51 Dose: Not Given Amlodipine Besylate (Norvasc) 2.5 mg PO DAILY [facility] Last Admin: 02/07/19 11:34 Dose: Not Given Atorvastatin Calcium (Lipitor) 40 mg PO DAILY [facility] Last Admin: 01/31/19 08:49 Dose: 40 mg Furosemide (Lasix) 20 mg IVPUSH ONETIME ONE Stop: 02/05/19 19:03 Last Admin: 02/05/19 19:12 Dose: 20 mg Furosemide (Lasix) 40 mg IVPUSH NOW ONE Stop: 02/05/19 23:11 Last Admin: 02/05/19 23:32 Dose: 40 mg Furosemide (Lasix) 40 mg IVPUSH NOW ONE Stop: 02/06/19 09:38 Last Admin: 02/06/19 10:15 Dose: 40 mg Furosemide (Lasix) 20 mg IVPUSH NOW ONE Stop: 02/07/19 14:00 Last Admin: 02/07/19 15:41 Dose: Not Given Piperacillin Sod/Tazobactam (Sod 3.375 gm/ Sodium Chloride) 50 mls @ 100 mls/ hr IV Q8H [facility] Last Admin: 01/22/19 22:05 Dose: Not Given Sodium Chloride (Normal Saline) 100 mls @ 100 mls/hr IV ASDIRECTED PRN PRN Reason: FLUSH Piperacillin/Tazobactam/Dextrose (Zosyn In Dextrose Iso-Osmotic 3.375 Gm) 50 mls @ 100 mls/hr IV Q8H [facility] Last Admin: 01/29/19 18:29 Dose: 100 mls/hr Sodium Chloride (Normal Saline) 100 mls @ 100 mls/hr IV 2200 PRN PRN Reason: FLUSH Last Admin: 01/22/19 22:12 Dose: 100 mls/hr Sodium Chloride (Normal Saline) 100 mls @ 100 mls/hr IV 2200 [facility] Last Admin: 01/28/19 22:13 Dose: 100 mls/hr Sodium Chloride (Normal Saline) Confirm Administered Dose 100 mls @ as directed .ROUTE .[facility] ONE Stop: 01/27/19 22:57 Last Admin: 01/28/19 13:50 Dose: 100 mls/hr Piperacillin/Tazobactam/Dextrose (Zosyn In Dextrose Iso-Osmotic 3.375 Gm) 50 mls @ 100 mls/hr IV Q8H [facility] Last Admin: 02/04/19 09:23 Dose: Not Given Sodium Chloride (Normal Saline) 100 mls @ 100 mls/hr IV 0030 [facility] Last Admin: 02/10/19 00:54 Dose: 100 mls/hr Sodium Chloride (Normal Saline) Confirm Administered Dose 100 mls @ as directed .ROUTE .[facility] ONE Stop: 01/30/19 00:46 Last Admin: 01/30/19 03:14 Dose: Not Given Sodium Chloride (Normal Saline) Confirm Administered Dose 100 mls @ as directed .ROUTE .[facility] ONE Stop: 01/31/19 00:02 Last Admin: 01/31/19 02:23 Dose: Not Given Sodium Chloride (Normal Saline) 1,000 mls @ 75 mls/hr IV ASDIRECTED [facility] Last Admin: 02/05/19 01:27 Dose: 75 mls/hr Piperacillin/Tazobactam/ (Dextrose 3.375 gm/ Premix) 50 mls @ 100 mls/hr IV Q8H [facility] Last Admin: 02/04/19 09:23 Dose: Not Given Piperacillin Sod/Tazobactam (Sod 2.25 gm/ Sodium Chloride) 50 mls @ 100 mls/hr IV Q8H [facility] Stop: 02/20/19 23:59 Last Admin: 02/10/19 17:46 Dose: 100 mls/hr Sodium Chloride (Normal Saline) 250 mls @ 999 mls/hr IV ASDIRECTED [facility] Last Admin: 02/06/19 16:45 Dose: 999 mls/hr Sodium Chloride (Normal Saline) 200 mls @ 200 mls/hr IV ASDIRECTED [facility] Sodium Chloride (Normal Saline) 100 mls @ 50 mls/hr IV 0200 [facility] Stop: 02/11/19 03:59 Last Admin: 02/11/19 01:52 Dose: 50 mls/hr Insulin Aspart (Novolog) 5 unit SUBCUT ONETIME ONE Stop: 01/22/19 20:52 Last Admin: 01/22/19 21:15 Dose: 5 unit Insulin Detemir (Levemir) 23 unit SUBCUT DAILY [facility] Last Admin: 02/04/19 09:39 Dose: 23 units Insulin Detemir (Levemir) 17 unit SUBCUT DAILY [facility] Last Admin: 02/11/19 09:39 Dose: Not Given Levalbuterol HCl (Xopenex) 1.25 mg NEB Q8HRRT [facility] Last Admin: 02/08/19 10:47 Dose: Not Given Levalbuterol HCl (Xopenex) 1.26 mg NEB Q8HRRT [facility] Last Admin: 02/08/19 13:09 Dose: 1.26 mg - Exam Quality Assessment: Supplemental Oxygen (10 ) General: Alert, Oriented, Mild Distress Neck: JVD Lungs: Decreased Breath Sounds. No: Normal Respiratory Effort, Rales, Rhonchi, Wheezing Cardiovascular: Tachycardia - Problem List Review Problem List Initiated/Reviewed/Updated: Yes - My Orders Last 24 Hours: My Active Orders 02/11/19 10:00 Sodium Chloride 0.9% [Normal Saline] 100 ml IV ASDIRECTED - Plan Plan:: History of present illness 78-year-old male returns back to [facility] swing bed [facility] status from. He was in swing bed status here at [facility] evening IV antibiotics for a diabetic foot infection when he started having decrease hemoglobin, melena , loose bowel movements with an episode of syncope necessitating transfer to tertiary Care [facility] due to GI bleed. While in [place] he did undergo EGD revealed LA grade reflux esophagitis, normal esophagus, 3 cm hernia and multiple nonbleeding duodenal ulcers--highly suggested add the bleeding source. He received blood transfusion, and he was continued on high-dose PPI. Hemoglobin was monitored frequently. He did have a few episodes of black stool but subsequently was getting better upon discharge. More recently patient has had significant acute on chronic precipitous decline in renal function, necessitating nephrology consultation for possible renal replacement therapy however after extensive conversation with family they (Beba Arteaga) have consistently and repeatedly declined this. He continues in swing bed for IV antibiotics however has required increasing oxygen requirements. No longer on periodic BiPAP. recent chest x-ray evidence of fluid overload--family has declined chest CT for more definitive diagnosis. Update: Sitting in bed eating breakfast visiting with family members this morning. Nurses report significant hypoxia upon ambulation 70s with slow O2 recovery. Continues with high flow nasal cannula 10 L Primary problems respiratory failure, no longer requiring BiPAP. on high flow nasal cannula. 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 PICC line placed on 01/15. no drainage Upper GI bleed, status post EGD, Grade D reflux esophagitis Nonbleeding duodenal ulcers, multiple, PPI Chronic, stable problems Hyperparathyroidism d/t CKD, Calcitriol, monitor creatinine T2DM, uncontrolled (A1c 9.4 on 01/18/19) holding Tresiba, continue SS HTN discontinue amlodipine-- low BP HLD, ASCVD 48%, however patient's desiring statin discontinuation--consulted family as important medication in light of renal failure BPH, on Flomax Hypothyroidism, TSH 2.2 on 01/18/19 Cognitive impairment, mild. CODE STATUS, DNR DVT prophylaxis, not indicated, recent GI bleeding, increased risk since wound VAC, non-ambulation NARINDER stockings Activity, NWB right foot except on heel when walking boot--current wound VAC Consultations Dr June ([employer] Machine Operator) - in consultation with him he is aware that wound VAC was placed on locally here at [place], wound VAC placed 02/05/2019 Johana Mcguire MD, (ID) - Decrease dose of piperacillin+tazobactam to 2.25g IV L6K--siux date 02/20/19 - Continue weekly labs, - Follow up with her as scheduled. 3 month post discharge with nephrology for management of hyperparathyroidism and CKD. Patient is refusing to travel refusing dialysis Infectious disease, 4 weeks post discharge--[facility]ment [facility] [place], 8 weeks post discharge Dispostion/status/update, Patient with worsening and precipitous decline in his renal function. Ongoing conversation with family (Beba Primary) and patient who decline nephrology consultation/transfer or renal placement therapy given comorbidities, age, quality of life etc. ongoing hypoxia, no longer requiring BiPAP, plan is to DC resendiz catherter today, DC Rocephin, BMP today, Ongoing wound VAC with current scheduled dressing changes, good seal however no drainage.
[2019-02-12] MEDS: Triamcinolone Acetonide 0.1% Crm 15 GM Tube TOP SCH ×2 (09:59→21:25)
[2019-02-12] MEDS: Nystatin Crm 15 GM Tube TOP SCH ×3 (10:00→21:24)
[2019-02-12] MEDS: [UNRECOGNIZED DRUG - OTHER] TOP SCH ×3 (10:00→21:24)
[2019-02-12] MEDS: Sodium Chloride 0.9% 100 ML IV SCH (10:19)
[2019-02-12 10:39] LABS: ANION GAP 20.4 mmol/L (5-15)
[2019-02-13] MEDS: Morphine 2 MG/ML Syringe IVPUSH PRN (00:36)
[2019-02-13] MEDS: Piperacillin/Tazobactam 2.25 GM in Sodium Chloride 0.9% 50 ML IV SCH ×3 (02:06→17:51)
[2019-02-13] MEDS: Pantoprazole 40 MG Tab.CR PO SCH ×2 (08:05→17:53)
[2019-02-13] MEDS: Insulin Aspart 100 Units/ML 3 ML Pen SUBCUT SCH ×3 (08:05→18:45)
[2019-02-13] MEDS: Levothyroxine 75 MCG Tab PO SCH (08:05)
[2019-02-13] MEDS: [UNRECOGNIZED DRUG - OTHER] TOP SCH ×2 (09:18→17:52)
[2019-02-13] MEDS: Tamsulosin 0.4 MG Cap.ER PO SCH (09:18)
[2019-02-13] MEDS: Nystatin Crm 15 GM Tube TOP SCH ×2 (09:19→17:52)
[2019-02-13] MEDS: Triamcinolone Acetonide 0.1% Crm 15 GM Tube TOP SCH (09:21)
[2019-02-13] MEDS ORDERED: LORazepam 0.5 MG Tab PO PRN (11:26)
[2019-02-13] MEDS: hydrOXYzine HCl 25 MG Tab PO PRN (17:51)
[2019-02-13] MEDS: Sodium Chloride 0.9% 100 ML IV SCH (18:41)
[2019-02-14] MEDS: Nystatin Crm 15 GM Tube TOP SCH ×3 (00:10→22:07)
[2019-02-14] MEDS: [UNRECOGNIZED DRUG - OTHER] TOP SCH ×4 (00:11→22:07)
[2019-02-14] MEDS: Triamcinolone Acetonide 0.1% Crm 15 GM Tube TOP SCH ×3 (00:29→22:05)
[2019-02-14] MEDS: Morphine 2 MG/ML Syringe IVPUSH PRN ×4 (01:45→21:56)
[2019-02-14] MEDS: Sodium Chloride 0.9% 10 ML Syringe FLUSH PRN ×5 (01:50→23:12)
[2019-02-14] MEDS: Piperacillin/Tazobactam 2.25 GM in Sodium Chloride 0.9% 50 ML IV SCH ×4 (01:52→23:11)
[2019-02-14] MEDS ORDERED: LORazepam 2 MG/ML SDV IVPUSH PRN (02:43)
[2019-02-14] MEDS ORDERED: hydrOXYzine HCl 50 MG/ML SDV IM PRN (02:49)
[2019-02-14] MEDS ORDERED: LORazepam 0.5 MG Tab PO PRN (04:08)
[2019-02-14] MEDS: hydrOXYzine HCl 50 MG/ML SDV IM PRN ×2 (06:50→15:17)
[2019-02-14] MEDS: Insulin Aspart 100 Units/ML 3 ML Pen SUBCUT SCH ×2 (12:38→19:39)
[2019-02-14] MEDS: Levothyroxine 75 MCG Tab PO SCH (12:39)
[2019-02-14] MEDS: Pantoprazole 40 MG Tab.CR PO SCH ×2 (12:39→19:38)
[2019-02-14] MEDS: Tamsulosin 0.4 MG Cap.ER PO SCH (12:40)
[2019-02-14] MEDS ORDERED: Haloperidol Lactate 5 MG/ML SDV IM PRN (18:43)
[2019-02-14] MEDS ORDERED: Ondansetron 4 MG/2 ML SDV IVPUSH PRN (18:47)
[2019-02-14] MEDS: hydrOXYzine HCl 25 MG Tab PO PRN (21:50)
[2019-02-14] MEDS: Saliva Substitute Oral Spray 120 ML Bottle MUCMEM PRN (23:14)
[2019-02-15] MEDS: Morphine 2 MG/ML Syringe IVPUSH PRN ×4 (00:13→13:47)
[2019-02-15] MEDS: Sodium Chloride 0.9% 10 ML Syringe FLUSH PRN ×7 (00:21→23:00)
[2019-02-15] MEDS: Saliva Substitute Oral Spray 120 ML Bottle MUCMEM PRN ×4 (01:30→07:19)
[2019-02-15] MEDS: Piperacillin/Tazobactam 2.25 GM in Sodium Chloride 0.9% 50 ML IV SCH (05:09)
[2019-02-15] MEDS: [UNRECOGNIZED DRUG - OTHER] TOP SCH ×2 (06:21→08:57)
[2019-02-15 06:55] VITALS: BP 79/43
[2019-02-15] MEDS: hydrOXYzine HCl 50 MG/ML SDV IM PRN (07:14)
[2019-02-15] MEDS: Nystatin Crm 15 GM Tube TOP SCH (08:55)
[2019-02-15] MEDS: Triamcinolone Acetonide 0.1% Crm 15 GM Tube TOP SCH (08:56)
[2019-02-15] MEDS ORDERED: Glycopyrrolate 0.2 MG/ML 5 ML MDV SUBCUT PRN (10:52)
[2019-02-15] MEDS: Morphine 2 MG/ML Syringe IVPUSH SCH ×4 (11:39→22:56)
[2019-02-16] MEDS: Morphine 2 MG/ML Syringe IVPUSH SCH ×6 (03:11→22:57)
[2019-02-16] MEDS: Saliva Substitute Oral Spray 120 ML Bottle MUCMEM PRN (06:42)
[2019-02-16] MEDS: Morphine 2 MG/ML Syringe IVPUSH PRN ×5 (08:02→21:05)
[2019-02-16] MEDS: Sodium Chloride 0.9% 10 ML Syringe FLUSH PRN ×6 (09:58→21:08)
--- NOTE | 2019-02-17 22:17 | PCM.PN ---
- General Info Date of Service: 02/15/19 - Patient Data Vitals - Most Recent: Last Vital Signs Temp 36.7 C 02/15/19 06:54 Pulse 91 02/15/19 06:54 Resp 20 02/15/19 06:54 BP 79/43 L 02/15/19 06:54 Pulse Ox 91 L 02/15/19 06:54 Weight - Most Recent: 65.884 kg Med Orders - Current: Current Medications Discontinued Medications Acetaminophen (Tylenol Extra Strength) 500 mg PO Q4H PRN PRN Reason: Pain Acetaminophen (Tylenol) 650 mg PO Q4H PRN PRN Reason: Fever Last Admin: 02/11/19 17:36 Dose: 650 mg Albuterol/Ipratropium (Duoneb 3.0-0.5 Mg/3 Ml) 3 ml NEB Q4HRRT [facility] Last Admin: 02/07/19 13:46 Dose: Not Given Amlodipine Besylate (Norvasc) 5 mg PO DAILY [facility] Last Admin: 01/31/19 08:51 Dose: Not Given Amlodipine Besylate (Norvasc) 2.5 mg PO DAILY [facility] Last Admin: 02/07/19 11:34 Dose: Not Given Atorvastatin Calcium (Lipitor) 40 mg PO DAILY [facility] Last Admin: 01/31/19 08:49 Dose: 40 mg Bacitracin (Get Ointment) 0 ml TOP TID [facility] Last Admin: 02/15/19 08:57 Dose: 1 applic Bisacodyl (Dulcolax) 10 mg RECTAL DAILY PRN PRN Reason: Constipation Calcium Carbonate/Glycine (Tums) 500 mg PO QID PRN PRN Reason: INDIGESTION Last Admin: 02/07/19 11:33 Dose: 500 mg Ceftriaxone Sodium (Rocephin) 1 gm IVPUSH Q24H [facility] Last Admin: 02/11/19 13:30 Dose: 1 gm Furosemide (Lasix) 20 mg IVPUSH ONETIME ONE Stop: 02/05/19 19:03 Last Admin: 02/05/19 19:12 Dose: 20 mg Furosemide (Lasix) 40 mg IVPUSH NOW ONE Stop: 02/05/19 23:11 Last Admin: 02/05/19 23:32 Dose: 40 mg Furosemide (Lasix) 40 mg IVPUSH NOW ONE Stop: 02/06/19 09:38 Last Admin: 02/06/19 10:15 Dose: 40 mg Furosemide (Lasix) 20 mg IVPUSH NOW ONE Stop: 02/07/19 14:00 Last Admin: 02/07/19 15:41 Dose: Not Given Glycopyrrolate (Robinul) 0.2 mg SUBCUT Q4H PRN PRN Reason: Other Haloperidol Lactate (Haldol) 2 mg IM Q8H PRN PRN Reason: Agitation Hydroxyzine HCl (Atarax) 25 mg PO Q8HR PRN PRN Reason: Itching Last Admin: 02/14/19 21:50 Dose: 25 mg Hydroxyzine HCl (Vistaril) 25 mg IM Q4H PRN PRN Reason: Itching Hydroxyzine HCl (Vistaril) 25 mg IM Q8H PRN PRN Reason: Itching Last Admin: 02/15/19 07:14 Dose: 25 mg Piperacillin Sod/Tazobactam (Sod 3.375 gm/ Sodium Chloride) 50 mls @ 100 mls/ hr IV Q8H [facility] Last Admin: 01/22/19 22:05 Dose: Not Given Sodium Chloride (Normal Saline) 100 mls @ 100 mls/hr IV ASDIRECTED PRN PRN Reason: FLUSH Piperacillin/Tazobactam/Dextrose (Zosyn In Dextrose Iso-Osmotic 3.375 Gm) 50 mls @ 100 mls/hr IV Q8H [facility] Last Admin: 01/29/19 18:29 Dose: 100 mls/hr Sodium Chloride (Normal Saline) 100 mls @ 100 mls/hr IV 2200 PRN PRN Reason: FLUSH Last Admin: 01/22/19 22:12 Dose: 100 mls/hr Sodium Chloride (Normal Saline) 100 mls @ 100 mls/hr IV 2200 [facility] Last Admin: 01/28/19 22:13 Dose: 100 mls/hr Sodium Chloride (Normal Saline) Confirm Administered Dose 100 mls @ as directed .ROUTE .STK-MED ONE Stop: 01/27/19 22:57 Last Admin: 01/28/19 13:50 Dose: 100 mls/hr Piperacillin/Tazobactam/Dextrose (Zosyn In Dextrose Iso-Osmotic 3.375 Gm) 50 mls @ 100 mls/hr IV Q8H [facility] Last Admin: 02/04/19 09:23 Dose: Not Given Sodium Chloride (Normal Saline) 100 mls @ 100 mls/hr IV 0030 [facility] Last Admin: 02/10/19 00:54 Dose: 100 mls/hr Sodium Chloride (Normal Saline) Confirm Administered Dose 100 mls @ as directed .ROUTE .STK-[facility] ONE Stop: 01/30/19 00:46 Last Admin: 01/30/19 03:14 Dose: Not Given Sodium Chloride (Normal Saline) Confirm Administered Dose 100 mls @ as directed .ROUTE .[facility] ONE Stop: 01/31/19 00:02 Last Admin: 01/31/19 02:23 Dose: Not Given Sodium Chloride (Normal Saline) 1,000 mls @ 75 mls/hr IV ASDIRECTED [facility] Last Admin: 02/05/19 01:27 Dose: 75 mls/hr Piperacillin/Tazobactam/ (Dextrose 3.375 gm/ Premix) 50 mls @ 100 mls/hr IV Q8H [facility] Last Admin: 02/04/19 09:23 Dose: Not Given Piperacillin Sod/Tazobactam (Sod 2.25 gm/ Sodium Chloride) 50 mls @ 100 mls/hr IV Q8H [facility] Stop: 02/20/19 23:59 Last Admin: 02/10/19 17:46 Dose: 100 mls/hr Sodium Chloride (Normal Saline) 250 mls @ 999 mls/hr IV ASDIRECTED [facility] Last Admin: 02/06/19 16:45 Dose: 999 mls/hr Sodium Chloride (Normal Saline) 200 mls @ 200 mls/hr IV ASDIRECTED [facility] Sodium Chloride (Normal Saline) 100 mls @ 50 mls/hr IV 0200 [facility] Stop: 02/11/19 03:59 Last Admin: 02/11/19 01:52 Dose: 50 mls/hr Piperacillin Sod/Tazobactam (Sod 2.25 gm/ Sodium Chloride) 50 mls @ 100 mls/hr IV 0200,1000,1800 [facility] Stop: 02/20/19 23:59 Last Admin: 02/14/19 17:32 Dose: Not Given Sodium Chloride (Normal Saline) 100 mls @ 100 mls/hr IV ASDIRECTED [facility] Last Admin: 02/13/19 18:41 Dose: 100 mls/hr Piperacillin Sod/Tazobactam (Sod 2.25 gm/ Sodium Chloride) 50 mls @ 100 mls/hr IV Q8H [facility] Last Admin: 02/15/19 05:09 Dose: 100 mls/hr Insulin Aspart (Novolog) 5 unit SUBCUT ONETIME ONE Stop: 01/22/19 20:52 Last Admin: 01/22/19 21:15 Dose: 5 unit Insulin Aspart (Novolog) 0 unit SUBCUT TIDMEALS [facility]; Protocol Last Admin: 02/14/19 19:39 Dose: Not Given Insulin Detemir (Levemir) 23 unit SUBCUT DAILY [facility] Last Admin: 02/04/19 09:39 Dose: 23 units Insulin Detemir (Levemir) 17 unit SUBCUT DAILY [facility] Last Admin: 02/11/19 09:39 Dose: Not Given Levalbuterol HCl (Xopenex) 1.25 mg NEB Q8HRRT [facility] Last Admin: 02/08/19 10:47 Dose: Not Given Levalbuterol HCl (Xopenex) 1.26 mg NEB Q8HRRT [facility] Last Admin: 02/08/19 13:09 Dose: 1.26 mg Levalbuterol HCl (Xopenex) 1.25 mg NEB Q8HRRT [facility] Last Admin: 02/12/19 05:51 Dose: 1.25 mg Levalbuterol HCl (Xopenex) 1.25 mg NEB Q8HRRT PRN PRN Reason: Wheezing Levothyroxine Sodium (Levothyroxine) 75 mcg PO ACBREAKFAST [facility] Last Admin: 02/14/19 12:39 Dose: Not Given Loperamide HCl (Imodium) 2 mg PO Q4H PRN PRN Reason: Diarrhea Last Admin: 02/10/19 14:31 Dose: 2 mg Lorazepam (Ativan) 0.25 mg PO Q8H PRN PRN Reason: Agitation Last Admin: 02/14/19 00:12 Dose: 0.25 mg Lorazepam (Ativan) 0.25 - 0.5 mg IVPUSH Q4H PRN PRN Reason: Agitation Last Admin: 02/14/19 03:07 Dose: 0.25 mg Lorazepam (Ativan) 0.25 - 0.5 mg PO Q4H PRN PRN Reason: Agitation Melatonin (Melatonin) 3 mg PO BEDTIME PRN PRN Reason: Insomnia Last Admin: 02/11/19 20:38 Dose: 3 mg Morphine Sulfate (Morphine) 2 mg IVPUSH Q4H PRN PRN Reason: Shortness of Breath Last Admin: 02/14/19 01:45 Dose: 2 mg Morphine Sulfate (Morphine) 2 mg IVPUSH Q2H PRN PRN Reason: Shortness of Breath Last Admin: 02/15/19 07:16 Dose: 2 mg Morphine Sulfate (Morphine) 2 mg IVPUSH Q4H [facility] Last Admin: 02/16/19 22:57 Dose: 2 mg Morphine Sulfate (Morphine) 2 mg IVPUSH Q1H PRN PRN Reason: Shortness of Breath Last Admin: 02/16/19 21:05 Dose: 2 mg Nystatin (Nystatin Crm) 1 gm TOP TID [facility] Last Admin: 02/15/19 08:55 Dose: 1 applic Ondansetron HCl (Zofran Odt) 4 mg PO Q4H PRN PRN Reason: Nausea Ondansetron HCl (Zofran) 4 mg IVPUSH Q4H PRN PRN Reason: Nausea/Vomiting Pantoprazole Sodium (Protonix) 40 mg PO BIDAC [facility] Last Admin: 02/14/19 19:38 Dose: Not Given Ramelteon (Rozerem) 8 mg PO BEDTIME [facility] Last Admin: 02/14/19 21:50 Dose: 8 mg Saliva Substitute (Mo-Stir Oral [place]) 1 ml MUCMEM ASDIRECTED PRN PRN Reason: Dryness Last Admin: 02/16/19 06:42 Dose: 1 ml Senna/Docusate Sodium (Senna Plus) 2 tab PO BID PRN PRN Reason: Constipation Sodium Chloride (Saline Flush) 10 ml FLUSH ASDIRECTED PRN PRN Reason: Other Last Admin: 02/16/19 21:08 Dose: 10 ml Tamsulosin HCl (Flomax) 0.4 mg PO DAILY [facility] Last Admin: 02/14/19 12:40 Dose: Not Given Triamcinolone Acetonide (Triamcinolone Acetonide 0.1% Crm) 0 gm TOP BID [facility] Last Admin: 02/15/19 08:56 Dose: 1 applic - Plan Plan:: History of present illness 78-year-old male returns back to [facility] swing bed usp status from. He was in swing bed status here at [facility] evening IV antibiotics for a diabetic foot infection when he started having decrease hemoglobin, melena , loose bowel movements with an episode of syncope necessitating transfer to tertiary Care [facility] due to GI bleed. While in [place] he did undergo EGD revealed LA grade reflux esophagitis, normal esophagus, 3 cm hernia and multiple nonbleeding duodenal ulcers--highly suggested add the bleeding source. He received blood transfusion, and he was continued on high-dose PPI. Hemoglobin was monitored frequently. He did have a few episodes of black stool but subsequently was getting better upon discharge. More recently patient has had significant acute on chronic precipitous decline in renal function, necessitating nephrology consultation for possible renal replacement therapy however after extensive conversation with family they (Beba Arteaga) have consistently and repeatedly declined this. He continues in swing bed for IV antibiotics however has required increasing oxygen requirements. No longer on periodic BiPAP. recent chest x-ray evidence of fluid overload--family has declined chest CT for more definitive diagnosis. Update: Sitting in bed eating breakfast visiting with family members this morning. Nurses report significant hypoxia upon ambulation 70s with slow O2 recovery. Continues with high flow nasal cannula 10 L Primary problems respiratory failure, no longer requiring BiPAP. on high flow nasal cannula. 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 PICC line placed on 01/15. no drainage Upper GI bleed, status post EGD, Grade D reflux esophagitis Nonbleeding duodenal ulcers, multiple, PPI Chronic, stable problems Hyperparathyroidism d/t CKD, Calcitriol, monitor creatinine T2DM, uncontrolled (A1c 9.4 on 01/18/19) holding Tresiba, continue SS HTN discontinue amlodipine-- low BP HLD, ASCVD 48%, however patient's desiring statin discontinuation--consulted family as important medication in light of renal failure BPH, on Flomax Hypothyroidism, TSH 2.2 on 01/18/19 Cognitive impairment, mild. CODE STATUS, DNR DVT prophylaxis, not indicated, recent GI bleeding, increased risk since wound VAC, non-ambulation NARINDER stockings Activity, NWB right foot except on heel when walking boot--current wound VAC Consultations Dr June (Stock Trader) - in consultation with him he is aware that wound VAC was placed on locally here at [facility], wound VAC placed 02/05/2019 Johana Mcguire MD, (ID) - Decrease dose of piperacillin+tazobactam to 2.25g IV J9T--dugh date 02/20/19 - Continue weekly labs, - Follow up with her as scheduled. 3 month post discharge with nephrology for management of hyperparathyroidism and CKD. Patient is refusing to travel refusing dialysis Infectious disease, 4 weeks post discharge--appointment made EGD surveillance, [place], 8 weeks post discharge Dispostion/status/update, Patient with worsening and precipitous decline in his renal function. Ongoing conversation with family (Beba Primary) and patient who decline nephrology consultation/transfer or renal placement therapy given comorbidities, age, quality of life etc. ongoing hypoxia, no longer requiring BiPAP, plan is to DC resendiz catherter today, DC Rocephin, BMP today, Ongoing wound VAC with current scheduled dressing changes, good seal however no drainage.
--- NOTE | 2019-02-18 21:39 | PCM.DCSUM1 ---
Discharge Summary - Discharge Data Discharge Date: 02/16/19 Discharge Disposition: 20 Condition: Good - Discharge Plan Home Medications: Home Meds Levothyroxine 75 mcg PO ACBREAKFAST 02/16/15 [History] Tamsulosin [Flomax] 0.4 mg PO DAILY 02/16/15 [History] atorvaSTATin [Lipitor] 40 mg PO DAILY 02/16/15 [History] amLODIPine Besylate [Amlodipine Besylate] 5 mg PO DAILY 01/04/19 [History] Acetaminophen [Tylenol Extra Strength] 500 mg PO Q4H PRN 01/15/19 [History] Bisacodyl [Dulcolax] 10 mg RECTAL DAILY PRN 01/15/19 [History] Calcium Carbonate/Vitamin D3 [Calcium Carb 500 MG] 500 mg PO QID PRN 01/15/19 [ History] Insulin Aspart [NovoLOG] See Protocol SQ TID 01/15/19 [History] Melatonin 3 mg PO BEDTIME PRN 01/15/19 [History] Ondansetron [Zofran ODT] 4 mg PO Q4H PRN 01/15/19 [History] Piperacillin/Tazobactam/Dext [Zosyn in Dextrose Iso-Osmotic 3.375 GM] 3.375 gram IV Q8H 01/15/19 [History] Sennosides/Docusate Sodium [Senna Plus Tablet] 2 tab PO BID PRN 01/15/19 [ History] Sodium Chloride 0.9% [Normal Saline] 10 ml IV Q8H 01/15/19 [History] Triamcinolone Acetonide [Triamcinolone Acetonide 0.1% Crm] 1 applic TOP BID [History] Heparin Sodium,Porcine/PF [Heparin 1,000 Unit/10 (100/ml)] 300 units IV ASDIRECTED 01/22/19 [History] Insulin Degludec [Tresiba] 23 units SUBCUT DAILY 01/22/19 [History] Pantoprazole [ProTONIX] 40 mg PO BIDAC 01/22/19 [History] - Patient Data Vitals - Most Recent: Last Vital Signs Temp 36.7 C 02/15/19 06:54 Pulse 91 02/15/19 06:54 Resp 20 02/15/19 06:54 BP 79/43 L 02/15/19 06:54 Pulse Ox 91 L 02/15/19 06:54 Weight - Most Recent: 65.884 kg Med Orders - Current: Current Medications Discontinued Medications Acetaminophen (Tylenol Extra Strength) 500 mg PO Q4H PRN PRN Reason: Pain Acetaminophen (Tylenol) 650 mg PO Q4H PRN PRN Reason: Fever Last Admin: 02/11/19 17:36 Dose: 650 mg Albuterol/Ipratropium (Duoneb 3.0-0.5 Mg/3 Ml) 3 ml NEB Q4HRRT [facility] Last Admin: 02/07/19 13:46 Dose: Not Given Amlodipine Besylate (Norvasc) 5 mg PO DAILY [facility] Last Admin: 01/31/19 08:51 Dose: Not Given Amlodipine Besylate (Norvasc) 2.5 mg PO DAILY [facility] Last Admin: 02/07/19 11:34 Dose: Not Given Atorvastatin Calcium (Lipitor) 40 mg PO DAILY [facility] Last Admin: 01/31/19 08:49 Dose: 40 mg Bacitracin (Get Ointment) 0 ml TOP TID [facility] Last Admin: 02/15/19 08:57 Dose: 1 applic Bisacodyl (Dulcolax) 10 mg RECTAL DAILY PRN PRN Reason: Constipation Calcium Carbonate/Glycine (Tums) 500 mg PO QID PRN PRN Reason: INDIGESTION Last Admin: 02/07/19 11:33 Dose: 500 mg Ceftriaxone Sodium (Rocephin) 1 gm IVPUSH Q24H [facility] Last Admin: 02/11/19 13:30 Dose: 1 gm Furosemide (Lasix) 20 mg IVPUSH ONETIME ONE Stop: 02/05/19 19:03 Last Admin: 02/05/19 19:12 Dose: 20 mg Furosemide (Lasix) 40 mg IVPUSH NOW ONE Stop: 02/05/19 23:11 Last Admin: 02/05/19 23:32 Dose: 40 mg Furosemide (Lasix) 40 mg IVPUSH NOW ONE Stop: 02/06/19 09:38 Last Admin: 02/06/19 10:15 Dose: 40 mg Furosemide (Lasix) 20 mg IVPUSH NOW ONE Stop: 02/07/19 14:00 Last Admin: 02/07/19 15:41 Dose: Not Given Glycopyrrolate (Robinul) 0.2 mg SUBCUT Q4H PRN PRN Reason: Other Haloperidol Lactate (Haldol) 2 mg IM Q8H PRN PRN Reason: Agitation Hydroxyzine HCl (Atarax) 25 mg PO Q8HR PRN PRN Reason: Itching Last Admin: 02/14/19 21:50 Dose: 25 mg Hydroxyzine HCl (Vistaril) 25 mg IM Q4H PRN PRN Reason: Itching Hydroxyzine HCl (Vistaril) 25 mg IM Q8H PRN PRN Reason: Itching Last Admin: 02/15/19 07:14 Dose: 25 mg Piperacillin Sod/Tazobactam (Sod 3.375 gm/ Sodium Chloride) 50 mls @ 100 mls/ hr IV Q8H [facility] Last Admin: 01/22/19 22:05 Dose: Not Given Sodium Chloride (Normal Saline) 100 mls @ 100 mls/hr IV ASDIRECTED PRN PRN Reason: FLUSH Piperacillin/Tazobactam/Dextrose (Zosyn In Dextrose Iso-Osmotic 3.375 Gm) 50 mls @ 100 mls/hr IV Q8H [facility] Last Admin: 01/29/19 18:29 Dose: 100 mls/hr Sodium Chloride (Normal Saline) 100 mls @ 100 mls/hr IV 2200 PRN PRN Reason: FLUSH Last Admin: 01/22/19 22:12 Dose: 100 mls/hr Sodium Chloride (Normal Saline) 100 mls @ 100 mls/hr IV 2200 [facility] Last Admin: 01/28/19 22:13 Dose: 100 mls/hr Sodium Chloride (Normal Saline) Confirm Administered Dose 100 mls @ as directed .ROUTE .STK-[facility] ONE Stop: 01/27/19 22:57 Last Admin: 01/28/19 13:50 Dose: 100 mls/hr Piperacillin/Tazobactam/Dextrose (Zosyn In Dextrose Iso-Osmotic 3.375 Gm) 50 mls @ 100 mls/hr IV Q8H [facility] Last Admin: 02/04/19 09:23 Dose: Not Given Sodium Chloride (Normal Saline) 100 mls @ 100 mls/hr IV 0030 [facility] Last Admin: 02/10/19 00:54 Dose: 100 mls/hr Sodium Chloride (Normal Saline) Confirm Administered Dose 100 mls @ as directed .ROUTE .STK-[facility] ONE Stop: 01/30/19 00:46 Last Admin: 01/30/19 03:14 Dose: Not Given Sodium Chloride (Normal Saline) Confirm Administered Dose 100 mls @ as directed .ROUTE .[facility]-MED ONE Stop: 01/31/19 00:02 Last Admin: 01/31/19 02:23 Dose: Not Given Sodium Chloride (Normal Saline) 1,000 mls @ 75 mls/hr IV ASDIRECTED ON [facility] OF [facility] Last Admin: 02/05/19 01:27 Dose: 75 mls/hr Piperacillin/Tazobactam/ (Dextrose 3.375 gm/ Premix) 50 mls @ 100 mls/hr IV Q8H [facility] Last Admin: 02/04/19 09:23 Dose: Not Given Piperacillin Sod/Tazobactam (Sod 2.25 gm/ Sodium Chloride) 50 mls @ 100 mls/hr IV Q8H [facility] Stop: 02/20/19 23:59 Last Admin: 02/10/19 17:46 Dose: 100 mls/hr Sodium Chloride (Normal Saline) 250 mls @ 999 mls/hr IV ASDIRECTED ON [facility] Last Admin: 02/06/19 16:45 Dose: 999 mls/hr Sodium Chloride (Normal Saline) 200 mls @ 200 mls/hr IV ASDIRECTED ON [facility] Sodium Chloride (Normal Saline) 100 mls @ 50 mls/hr IV 0200 [facility] Stop: 02/11/19 03:59 Last Admin: 02/11/19 01:52 Dose: 50 mls/hr Piperacillin Sod/Tazobactam (Sod 2.25 gm/ Sodium Chloride) 50 mls @ 100 mls/hr IV 0200,1000,1800 [facility] Stop: 02/20/19 23:59 Last Admin: 02/14/19 17:32 Dose: Not Given Sodium Chloride (Normal Saline) 100 mls @ 100 mls/hr IV ASDIRECTED ON [facility] Last Admin: 02/13/19 18:41 Dose: 100 mls/hr Piperacillin Sod/Tazobactam (Sod 2.25 gm/ Sodium Chloride) 50 mls @ 100 mls/hr IV Q8H [facility] Last Admin: 02/15/19 05:09 Dose: 100 mls/hr Insulin Aspart (Novolog) 5 unit SUBCUT ONETIME ONE Stop: 01/22/19 20:52 Last Admin: 01/22/19 21:15 Dose: 5 unit Insulin Aspart (Novolog) 0 unit SUBCUT TIDMEALS ON [facility] OF [facility]; Protocol Last Admin: 02/14/19 19:39 Dose: Not Given Insulin Detemir (Levemir) 23 unit SUBCUT DAILY [facility] Last Admin: 02/04/19 09:39 Dose: 23 units Insulin Detemir (Levemir) 17 unit SUBCUT DAILY [facility] Last Admin: 02/11/19 09:39 Dose: Not Given Levalbuterol HCl (Xopenex) 1.25 mg NEB Q8HRRT ON [facility] Last Admin: 02/08/19 10:47 Dose: Not Given Levalbuterol HCl (Xopenex) 1.26 mg NEB Q8HRRT [facility] Last Admin: 02/08/19 13:09 Dose: 1.26 mg Levalbuterol HCl (Xopenex) 1.25 mg NEB Q8HRRT [facility] Last Admin: 02/12/19 05:51 Dose: 1.25 mg Levalbuterol HCl (Xopenex) 1.25 mg NEB Q8HRRT PRN PRN Reason: Wheezing Levothyroxine Sodium (Levothyroxine) 75 mcg PO ACBREAKFAST ON [facility] Last Admin: 02/14/19 12:39 Dose: Not Given Loperamide HCl (Imodium) 2 mg PO Q4H PRN PRN Reason: Diarrhea Last Admin: 02/10/19 14:31 Dose: 2 mg Lorazepam (Ativan) 0.25 mg PO Q8H PRN PRN Reason: Agitation Last Admin: 02/14/19 00:12 Dose: 0.25 mg Lorazepam (Ativan) 0.25 - 0.5 mg IVPUSH Q4H PRN PRN Reason: Agitation Last Admin: 02/14/19 03:07 Dose: 0.25 mg Lorazepam (Ativan) 0.25 - 0.5 mg PO Q4H PRN PRN Reason: Agitation Melatonin (Melatonin) 3 mg PO BEDTIME PRN PRN Reason: Insomnia Last Admin: 02/11/19 20:38 Dose: 3 mg Morphine Sulfate (Morphine) 2 mg IVPUSH Q4H PRN PRN Reason: Shortness of Breath Last Admin: 02/14/19 01:45 Dose: 2 mg Morphine Sulfate (Morphine) 2 mg IVPUSH Q2H PRN PRN Reason: Shortness of Breath Last Admin: 02/15/19 07:16 Dose: 2 mg Morphine Sulfate (Morphine) 2 mg IVPUSH Q4H [facility] Last Admin: 02/16/19 22:57 Dose: 2 mg Morphine Sulfate (Morphine) 2 mg IVPUSH Q1H PRN PRN Reason: Shortness of Breath Last Admin: 02/16/19 21:05 Dose: 2 mg Nystatin (Nystatin Crm) 1 gm TOP TID [facility] Last Admin: 02/15/19 08:55 Dose: 1 applic Ondansetron HCl (Zofran Odt) 4 mg PO Q4H PRN PRN Reason: Nausea Ondansetron HCl (Zofran) 4 mg IVPUSH Q4H PRN PRN Reason: Nausea/Vomiting Pantoprazole Sodium (Protonix) 40 mg PO BIDAC ON [facility] Last Admin: 02/14/19 19:38 Dose: Not Given Ramelteon (Rozerem) 8 mg PO BEDTIME ON [facility] Last Admin: 02/14/19 21:50 Dose: 8 mg Saliva Substitute (Mo-Stir Oral [place]) 1 ml MUCMEM ASDIRECTED PRN PRN Reason: Dryness Last Admin: 02/16/19 06:42 Dose: 1 ml Senna/Docusate Sodium (Senna Plus) 2 tab PO BID PRN PRN Reason: Constipation Sodium Chloride (Saline Flush) 10 ml FLUSH ASDIRECTED PRN PRN Reason: Other Last Admin: 02/16/19 21:08 Dose: 10 ml Tamsulosin HCl (Flomax) 0.4 mg PO DAILY [facility] Last Admin: 02/14/19 12:40 Dose: Not Given Triamcinolone Acetonide (Triamcinolone Acetonide 0.1% Crm) 0 gm TOP BID ON [facility] Last Admin: 02/15/19 08:56 Dose: 1 applic
== END 2019-02-16 23:55 | disposition expired | DRG 637 ==
LOC: KA.MS 18:20
PROVIDERS: ADMIT Nurse Practitioner Family; ATTEND Family Medicine
PROC: 5A09357 Assistance with Respiratory Ventilation, Less than 24 Consecutive Hours, Continuous Positive Airway Pressure (ICD-10-PCS; principal; 2019-02-06)
DX: E11.621 Type 2 diabetes mellitus with foot ulcer (principal); J96.01 Acute respiratory failure with hypoxia; K26.4 Chronic or unspecified duodenal ulcer with hemorrhage; K92.1 Melena; N18.4 Chronic kidney disease, stage 4 (severe); N17.9 Acute kidney failure, unspecified; Z51.5 Encounter for palliative care; Z66 Do not resuscitate; K21.0 Gastro-esophageal reflux disease with esophagitis; E11.22 Type 2 diabetes mellitus with diabetic chronic kidney disease; E21.3 Hyperparathyroidism, unspecified; I12.9 Hypertensive chronic kidney disease with stage 1 through stage 4 chronic kidney disease, or unspecified chronic kidney disease; E78.5 Hyperlipidemia, unspecified; N40.0 Benign prostatic hyperplasia without lower urinary tract symptoms; G31.84 Mild cognitive impairment of uncertain or unknown etiology; E03.9 Hypothyroidism, unspecified; D64.9 Anemia, unspecified; E11.65 Type 2 diabetes mellitus with hyperglycemia; R31.9 Hematuria, unspecified; M25.579 Pain in unspecified ankle and joints of unspecified foot; L29.9 Pruritus, unspecified; Z96.0 Presence of urogenital implants; R19.7 Diarrhea, unspecified; K46.9 Unspecified abdominal hernia without obstruction or gangrene; H26.9 Unspecified cataract; H54.7 Unspecified visual loss; E78.00 Pure hypercholesterolemia, unspecified; M19.91 Primary osteoarthritis, unspecified site; Z99.81 Dependence on supplemental oxygen; Z79.4 Long term (current) use of insulin; Z79.899 Other long term (current) drug therapy
CPT/HCPCS: 36415; 36600; 51702; 71045; 71046; 80048; 80053; 82803; 82962; 83880; 84484; 85025; 86140; 87070; 87205; 93005; 94640; 94660; 97110-GP; 97161-GP; 97537-GP; A9270-GY; J0696; J1815-GY; J1940; J2060; J2270; J2543; J3410; J7030; J7050; J7612-GY; J7620-GY